=== PATIENT | male | born 1940 | race Caucasian/White ===

== ENCOUNTER 2020-03-26 13:28 | Outpatient (CLI) | payer MEDICARE, OTHER, SELFPAY ==
--- NOTE | 2020-04-10 13:52 | WPDHOLTEREM ---
Holter/Event Monitor Holter/Event Monitor Date of procedure: 03/26/20 Procedure Type: 30 day event monitor Indications: PAF Conclusion: 1. 13 days event monitor between 03/26/20-04/10/20. There are 11 available transmissions for analysis. 2. Underlying rhythm is sinus rhythm. HR range 50-120 bpm; average HR 58 bpm. 3. There are occasional premature supraventricular complexes with total burden of <1%. No supraventricular tachycardia. 4. There are intermittent premature ventricular complexes with total burden of 6%. No ventricular tachycardia. 5. No significant pauses greater than 2 seconds. 6. No symptoms available for correlation.
== END 2020-03-26 13:29 | disposition home or self-care (01) ==
LOC: CHSCARD 13:33
PROVIDERS: PCP Internal Medicine; Visit Provider Internal Medicine
DX: I48.91 Unspecified atrial fibrillation (principal)
CPT/HCPCS: 99199

== ENCOUNTER 2020-03-27 12:29 | Outpatient (CLI) | payer MEDICARE, OTHER, SELFPAY ==
--- NOTE | ~2020-03-27 | US_ITS ---
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 COMPARISON: None. FINDINGS: Right and left brachial artery pressures of 127 mm Hg and 123 mm Hg, respectively, are concordant (no rmal difference <= 30 mmHg). The right ankle-brachial index (KAYLENE) is 1.07 (normal >= 0.9-1.0). The right great toe-brachial index (TBI) is 1.05 (normal >= 0.65). Arterial Doppler waveforms are triphasic with brisk systolic upstroke s at both the right posterior tibial and dorsalis pedis arteries. The left KAYLENE is 1.13. The left TBI is 0.86. Arterial Doppler waveforms are triphasic with brisk systo lic upstrokes at both the left posterior tibial and dorsalis pedis arteries. IMPRESSION: 1. Normal study. No significant arterial occlusive disease with normal bilateral ABIs and TBI's. Reviewed, dictated and finalized at location A. IMPRESSION: 1. Normal study. No significant arterial occlusive disease with normal bilatera l ABIs and TBI's.
== END 2020-03-27 12:30 | disposition home or self-care (01) ==
LOC: CHSIMG 12:30
PROVIDERS: PCP Internal Medicine; Visit Provider Internal Medicine
DX: I73.9 Peripheral vascular disease, unspecified (principal)
CPT/HCPCS: 93922

== ENCOUNTER 2020-11-05 08:55 | Outpatient (CLI) | payer MEDICARE, OTHER, SELFPAY | END 2020-11-05 08:56 | disposition home or self-care (01) | LOC: CHSCARD 08:57 | PROVIDERS: PCP Internal Medicine; Visit Provider Internal Medicine | DX: J44.9 Chronic obstructive pulmonary disease, unspecified (principal) | CPT/HCPCS: 94060; 94726; 94729 ==

== ENCOUNTER 2020-11-20 13:14 | Outpatient (RCR) | payer MEDICARE, OTHER, SELFPAY ==
--- NOTE | 2020-11-06 09:39 | PTOPEVAL ---
Thank you for referring Dhiraj Jacobson to [facility].? The patient is scheduled to be seen for therapy? __2__x/week for 12 visits. Please review, sign, date and return this plan of care BHARAT. I agree with and certify that the following plan of care is medically necessary. Referring Physician Date Admitting Provider: Attending Provider: Paul Carpio MD Referring Provider: *PT Outpatient Evaluation Start: 11/06/20 08:52 Freq: Status: Active Protocol: Document 11/06/20 08:50 MELITON (Rec: 11/06/20 09:38 MELITON [id number]) Therapy Assessment Status Assessment Status Assessment Status Evaluation Evaluation Information Problem Diagnosis unstable gait Onset 10/29/20 Subjective Information Pt. reports that he had left Query Text:As Reported By Patient/ upper lobe of lung taken out Family in 2016. He underwent chemo and has not had any feeling in his feet since. He states that if he closes his eyes in the shower he will tend to fall backwards. He states that movement at night is difficult, especially if he does hold onto something. He denies any falls. He states that he still golfs, but feels unsteady. He does use a cane if he would go on a long walk . He reports that his goal is to improve his balance. 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[employer] Hand Dominance Right Activity of Daily Living Ability Independent Indoor/Home Mobility Independent Community Mobility Independent Stairs Ability Independent Functional Cognition (Planning, Shopping Independent , Taking Medications) Cooking Yes Cleaning Yes Laundry Yes Shopping Yes Driving Yes Pain Assessment Pain Scale Pain Scale Used Numeric (1 - 10) Self Report Pain Assessment Lower Back Reported Pain Level 0 Pain Description Aching Greatest Pain Intensity 8 Pain Aggravating Factors Exercise/Activity,Lifting Pain Score Pain Score 0: Self Report Interventions Used Interventions Used By Clinicians Activity or ADL's,Exercise Lower Extremity Muscle Strength Testing General Lower Extremity Strength Gross Lower E
== END 2020-12-17 08:41 | disposition home or self-care (01) ==
LOC: CHSPT 13:14
PROVIDERS: PCP Internal Medicine; Visit Provider Internal Medicine
DX: G62.9 Polyneuropathy, unspecified (principal); R26.81 Unsteadiness on feet
CPT/HCPCS: 97110; 97112; 97161; 97530

== ENCOUNTER 2021-01-08 09:30 | Outpatient (RCR) | payer MEDICARE, OTHER, SELFPAY | END 2021-01-08 10:46 | disposition home or self-care (01) | PROVIDERS: PCP Internal Medicine; Visit Provider Internal Medicine Cardiovascular Disease | DX: J44.9 Chronic obstructive pulmonary disease, unspecified (principal) | CPT/HCPCS: 97150; G0424 ==

== ENCOUNTER 2021-02-02 08:29 | Outpatient (CLI) | payer MEDICARE, SELFPAY ==
[2021-02-02 09:06] LABS: Hemoglobin A1C 6.2 % (<5.7)
[2021-02-02 09:35] LABS: Alanine Aminotransferase 44 U/L (16-63); Albumin Level 3.9 g/dL (3.4-5.0); Alkaline Phosphatase 103 U/L (46-116); Anion Gap 15 mmol/L (8-16); Aspartate Amino Transferase 30 U/L (15-37); Bilirubin,Total 1.4 mg/dL (0.00-1.00); Blood Urea Nitrogen 19 mg/dL (7-18); Calcium 9.5 mg/dL (8.5-10.1); Carbon Dioxide 21 mmol/L (21-32); Chloride 104 mmol/L (98-108); Cholesterol 179 mg/dL (0-200); Estimated Glomerular Filt Rate > 60; Glucose 140 mg/dL (70-99); HDL Direct 44 mg/dL (40-60); LDL Cholesterol Calculated 109 mg/dL (<130); Osmolality Calculated 294 mOsm/kg (285-295); Potassium 4.6 mmol/L (3.5-5.1); Sodium 140 mmol/L (136-145); Total Protein 7.1 g/dL (6.4-8.2); Triglycerides 128 mg/dL (0-150)
== END 2021-02-02 08:30 | disposition home or self-care (01) ==
LOC: CHSLAB 08:31
PROVIDERS: PCP Internal Medicine; Visit Provider Internal Medicine
DX: E78.2 Mixed hyperlipidemia (principal); I10 Essential (primary) hypertension; E11.65 Type 2 diabetes mellitus with hyperglycemia
CPT/HCPCS: 36415; 80053; 80061; 83036

== ENCOUNTER 2021-02-18 13:45 | Outpatient (CLI) | payer MEDICARE, OTHER, SELFPAY ==
--- NOTE | ~2021-02-18 | XR_ITS ---
XR hand LT min 3V DATE: 02/18/2021 14:20 INDICATION: Bilateral hand pain TECHNIQUE: 3 views COMPARISON: None FINDINGS: There is polyarticular osteoarthritis with severe joint space narrowing and spurring at the first carpometacarpal joint, narrowing at metacarpophalangeal and interphalangeal joints. No erosive change is evident. There is a bony density along the dorsal aspect of the wrist which may represent triquetrum fracture of uncertain age. There is no given history of recent trauma. No apparent recent fracture or dislocat ion, periosteal reaction or bone destruction is detected. IMPRESSION: Polyarticular osteoarthritis Possible triquetrum fracture of undetermined age Reviewed, dictated and finalized at location A.
--- NOTE | ~2021-02-18 | XR_ITS ---
XR hand RT min 3V DATE: 02/18/2021 14:20 INDICATION: Bilateral hand pain TECHNIQUE: AP, lateral, oblique views COMPARISON: None FINDINGS: There is chondrocalcinosis at the triangular cartilage and radiocarpal joint. There is prominent osteoarthritic change at the first carpometacarpal joint. There is mild osteoarthr itis at the first and second metacarpophalangeal joints. There is osteoarthritic change at multiple i nterphalangeal joints, joint space narrowing and spurring. No erosive change is evident. Small bony density at the dorsum of the proximal row carpal bones is noted, likely chronic. No recent fracture or dislocation, periosteal reaction or bone destruction. IMPRESSION: Chondrocalcinosis at the triangular cartilage and radiocarpal joint Polyarticular osteoarthritis Probable chronic small bony density at the dorsum of the wrist Reviewed, dictated and finalized at location A.
[2021-02-18 14:27] LABS: Basophils Absolute Auto 0.05 K/mm3 (0.00-0.10); Basophils Percent Auto 0.7 % (0.0-1.0); Eosinophils Absolute Auto 0.23 K/mm3 (0.02-0.50); Eosinophils Percent Auto 3.3 % (1.0-6.0); Hematocrit 44.1 % (37.0-46.0); Hemoglobin 14.5 g/dL (12.4-15.3); Immature Granulocyte Absolute 0.02 K/mm3 (0.00-0.00); Immature Granulocyte Percent A 0.3 % (0.0-0.0); Lymphocytes Absolute Auto 1.73 K/mm3 (1.10-4.50); Lymphocytes Percent Auto 25.2 % (18.0-42.0); Mean Corpuscular HGB Conc 32.9 g/dL (32.0-36.0); Mean Corpuscular Hemoglobin 31.7 pg (27.0-31.0); Mean Corpuscular Volume 96.3 fL (78.0-102.0); Monocytes Percent Auto 8.7 % (2.0-11.0); Neutrophils Absolute Auto 4.2 K/mm3 (1.7-7.2); Neutrophils Percent Auto 61.8 % (50.0-70.0); Platelet Count Result 154 K/mm3 (150-420); Red Blood Count 4.58 M/mm3 (4.70-6.10); Red Cell Distribution Width 12.9 % (11.6-14.4); White Blood Count 6.9 K/mm3 (4.8-10.8)
[2021-02-18 15:16] LABS: Rheumatoid Factor Screen Negative (Negative)
[2021-02-18 15:23] LABS: CRP < 0.5 mg/dL (0.0-0.9)
[2021-02-18 15:38] LABS: Erythrocyte Sedimentation Rate 9 mm/hr (0-20)
[2021-02-20 22:35] LABS: Anti Cyclic Citrullinated Pept <16 Units (<20)
[2021-02-24 10:35] LABS: Anti Nuclear Antibody Pattern Nuclear, Homogeneous; Anti Nuclear Antibody Titer 1:40
== END 2021-02-18 13:46 | disposition home or self-care (01) ==
LOC: CHSLAB 13:47
PROVIDERS: PCP Internal Medicine; Visit Provider Internal Medicine
DX: M79.642 Pain in left hand (principal); M79.641 Pain in right hand
CPT/HCPCS: 36415; 73130; 85025; 85652; 86038; 86039; 86140; 86200; 86430

== ENCOUNTER 2021-03-02 13:33 | Outpatient (RCR) | payer MEDICARE, OTHER, SELFPAY ==
--- NOTE | 2021-03-02 17:46 | OTOPEVAL ---
Thank you for referring Dhiraj Jacobson to [facility].? The patient is scheduled to be seen for therapy? ____x/week for ___ weeks. Please review, sign, date and return this plan of care BHARAT. I agree with and certify that the following plan of care is medically necessary. Referring Physician Date Admitting Provider: Attending Provider: Paul Carpio MD Referring Provider: *OT Outpatient Evaluation Start: 03/02/21 13:31 Freq: Status: Active Protocol: Document 03/02/21 13:31 [facility] [place] (Rec: 03/02/21 14:28 [facility] [place] [id number] Therapy Assessment Status Assessment Status Assessment Status Evaluation Outpatient Past Medical History Cardiovascular History Hx Hypertension Yes Respiratory History Hx Chronic Obstructive Pulmonary Disease Yes (COPD) Endocrine History Hx Diabetes Yes Evaluation Information Problem Diagnosis bilateral hand pain Onset 12/29/20 Subjective Information Patient reports that both of Query Text:As Reported By Patient/ his hands have been painful, Family specifically the L middle finger and the R thumb. Patient had X-rays which indicated arthritis. Patient started taking celebrex about 8 days ago and reports that it is helping. He does mention a history of trigger finger for the L middle finger but now has difficulty extending it. Patient reports that these issues have started approximately 8 weeks ago. Patient reports that he has been soaking his hands in warm water and rubbing them to help with pain. He notes difficulty opening water bottles, jars, containers, etc . Patient states that he has to use some pliers because he has lost his strength. Patient reports that he had carpal tunnel release surgery approximately 2 years ago. Quick DASH: 22.7% Diagnostic Tests X-Rays For This Problem Yes Prior Level of Function Activity Level (Last 3 Months) Occupation retired Hand Dominance Right Activity of Daily Living Ability Independent Indoor/Home Mobili
--- NOTE | 2021-03-03 11:43 | OTOPEVAL ---
Thank you for referring Dhiraj Jacobson to [facility].? The patient is scheduled to be seen for therapy? ____x/week for ___ weeks. Please review, sign, date and return this plan of care BHARAT. I agree with and certify that the following plan of care is medically necessary. Referring Physician Date Admitting Provider: Attending Provider: Palu Carpio MD Referring Provider: *OT Outpatient Evaluation Start: 03/02/21 13:31 Freq: Status: Active Protocol: Document 03/02/21 13:31 [facility] [place]Rec: 03/02/21 14:28 [facility] [place] [id number] Therapy Assessment Status Assessment Status Assessment Status Evaluation Outpatient Past Medical History Cardiovascular History Hx Hypertension Yes Respiratory History Hx Chronic Obstructive Pulmonary Disease Yes (COPD) Endocrine History Hx Diabetes Yes Evaluation Information Problem Diagnosis bilateral hand pain Onset 12/29/20 Subjective Information Patient reports that both of Query Text:As Reported By Patient/ his hands have been painful, Family specifically the L middle finger and the R thumb. Patient had X-rays which indicated arthritis. Patient started taking celebrex about 8 days ago and reports that it is helping. He does mention a history of trigger finger for the L middle finger but now has difficulty extending it. Patient reports that these issues have started approximately 8 weeks ago. Patient reports that he has been soaking his hands in warm water and rubbing them to help with pain. He notes difficulty opening water bottles, jars, containers, etc . Patient states that he has to use some pliers because he has lost his strength. Patient reports that he had carpal tunnel release surgery approximately 2 years ago. Quick DASH: 22.7% Diagnostic Tests X-Rays For This Problem Yes Prior Level of Function Activity Level (Last 3 Months) Occupation retired Hand Dominance Right Activity of Daily Living Ability Independent Indoor/Home Mobili
--- NOTE | 2021-04-03 14:04 | OTOPEVAL ---
Thank you for referring Dhiraj Jacobson to [facility].? The patient is scheduled to be seen for therapy? ____x/week for ___ weeks. Please review, sign, date and return this plan of care BHARAT. I agree with and certify that the following plan of care is medically necessary. Referring Physician Date Admitting Provider: Attending Provider: Paul Carpio MD Referring Provider: *OT Outpatient Evaluation Start: 03/02/21 13:31 Freq: Status: Active Protocol: Document 04/03/21 13:15 [facility] [place]Rec: 04/03/21 14:04 [facility] [place] [id number] Therapy Assessment Status Assessment Status Assessment Status Discharge Outpatient Past Medical History Cardiovascular History Hx Hypertension Yes Respiratory History Hx Chronic Obstructive Pulmonary Disease Yes (COPD) Endocrine History Hx Diabetes Yes Evaluation Information Problem Subjective Information Patient reports that both of Query Text:As Reported By Patient/ hands have been feeling really Family good. Patient has no concerns. Pain Assessment Timing of Pain Assessment Timing of Pain Assessment Re-assessment Self Report Self Report Pain Level 0 Pain Score Pain Score 0: Self Report Upper Extremity Range of Motion Finger Range of Motion Left Middle Finger PIP Joint Extension - 0 Active Hand Bench Scientist/Pinch Strength Assessment Hand Right Bench Scientist Strength (lbs) 65 Left Bench Scientist Strength (lbs) 49 General Exercise General Exercises Side Bilateral Exercise Description PROM for wrist flexion and Query Text:Record Sets, Reps, wrist extension with elbow Resistance, and Position extended holding ~30 seconds x 2 reps each blue digi-flex resisting bilateral, 20 reps x 2 sets green clothespin resisting L lateral pinch, 20 reps x 2 sets each 5# resisting B wrist flexion and wrist extension, supination/pronation, 20 reps x 1 set each [ End ] Manual Therapy Manual Therapy Side Bilateral Treatment Comments PROM for L middle finger Query Text:Include Technique and extension and MCP/PIP/DIP Result of Technique flexion x 5 min, STM to palm of hand and middle finger PROM for R thumb radial/palmar abduction, STM/ISTM to R
== END 2021-04-03 15:13 | disposition home or self-care (01) ==
LOC: CHSOT 13:33
PROVIDERS: PCP Internal Medicine; Visit Provider Internal Medicine
DX: M79.642 Pain in left hand (principal); M79.641 Pain in right hand
CPT/HCPCS: 97035; 97110; 97140; 97165

== ENCOUNTER 2021-06-18 07:03 | Outpatient (CLI) | payer MEDICARE, SELFPAY ==
[2021-06-18 07:19] LABS: Add Urine Microscopic? NO; Appearance Urine Clear (Clear); Bilirubin Urine Negative (Negative); Blood Urine Negative (Negative); Color Urine Light Yellow (Yellow); Glucose Urine UA Negative (Negative); Ketones Urine Negative (Negative); Leukocyte Esterase Ur Negative LEU/UL (Negative); Nitrate Urine Negative (Negative); Protein Urine Negative (Negative); Urobilinogen Urine 0.2 mg/dL (0.2-1.0)
[2021-06-18 07:20] LABS: Basophils Absolute Auto 0.03 K/mm3 (0.00-0.10); Basophils Percent Auto 0.5 % (0.0-1.0); Eosinophils Absolute Auto 0.22 K/mm3 (0.02-0.50); Eosinophils Percent Auto 3.4 % (1.0-6.0); Hemoglobin 15.3 g/dL (12.4-15.3); Immature Granulocyte Absolute 0.02 K/mm3 (0.00-0.00); Immature Granulocyte Percent A 0.3 % (0.0-0.0); Immature Platelet Fraction Pct 5.6 % (1.0-7.0); Lymphocytes Absolute Auto 1.62 K/mm3 (1.10-4.50); Lymphocytes Percent Auto 25.1 % (18.0-42.0); Mean Corpuscular Hemoglobin 32.8 pg (27.0-31.0); Mean Corpuscular Volume 96.6 fL (78.0-102.0); Mean Platelet Volume 11.3 fl (8.7-11.0); Monocytes Absolute Auto 0.59 K/mm3 (0.10-0.90); Monocytes Percent Auto 9.1 % (2.0-11.0); Neutrophils Percent Auto 61.6 % (50.0-70.0); Platelet Count Result 140 K/mm3 (150-420); Red Blood Count 4.66 M/mm3 (4.70-6.10); Red Cell Distribution Width 12.8 % (11.6-14.4); White Blood Count 6.5 K/mm3 (4.8-10.8)
[2021-06-18 07:29] LABS: Creatinine Urine 118.77 mg/dL (40-278); MALB Creatinine Ratio 10.9 mg/g (0-30); Microalbumin Urine Random < 13.0 mg/L
[2021-06-18 07:30] LABS: Hemoglobin A1C 6.9 % (<5.7)
[2021-06-18 08:48] LABS: Alanine Aminotransferase 63 U/L (16-63); Albumin Level 3.8 g/dL (3.4-5.0); Alkaline Phosphatase 132 U/L (46-116); Anion Gap 11 mmol/L (8-16); Aspartate Amino Transferase 48 U/L (15-37); Bilirubin,Total 0.8 mg/dL (0.00-1.00); Blood Urea Nitrogen 15 mg/dL (7-18); Calcium 9.1 mg/dL (8.5-10.1); Carbon Dioxide 26 mmol/L (21-32); Chloride 103 mmol/L (98-108); Cholesterol 212 mg/dL (0-200); Creatine Kinase 131 U/L (39-308); Estimated Glomerular Filt Rate > 60; Glucose 201 mg/dL (70-99); HDL Direct 39 mg/dL (40-60); LDL Cholesterol Calculated 124 mg/dL (<130); Osmolality Calculated 296 mOsm/kg (285-295); Potassium 4.5 mmol/L (3.5-5.1); Sodium 140 mmol/L (136-145); Total Protein 7.2 g/dL (6.4-8.2); Triglycerides 246 mg/dL (0-150); Uric Acid 5.7 mg/dL (3.5-7.2); Vitamin B12 465 pg/mL (193-986)
== END 2021-06-18 07:04 | disposition home or self-care (01) ==
LOC: CHSLAB 07:05
PROVIDERS: PCP Internal Medicine; Visit Provider Internal Medicine
DX: E11.9 Type 2 diabetes mellitus without complications (principal); I10 Essential (primary) hypertension; N39.0 Urinary tract infection, site not specified; E78.5 Hyperlipidemia, unspecified; E53.8 Deficiency of other specified B group vitamins; E79.0 Hyperuricemia without signs of inflammatory arthritis and tophaceous disease
CPT/HCPCS: 36415; 80053; 80061; 81003; 82043; 82550; 82607; 83036; 84550; 85025; 85055

== ENCOUNTER 2021-10-26 14:30 | Outpatient (CLI) | payer MEDICARE, OTHER, SELFPAY ==
--- NOTE | ~2021-10-26 | XR_ITS ---
r EXAM: XR lumbar spine 2-3V HISTORY: Low back pain for two years no know injury COMPARISON: 10/13/2018. FINDINGS: 5 nonrib-bearing lumbar-type vertebral bodies. Cholecystectomy clips. Visualized pedicles are intact. 2.6 cm anterolisthesis of L5 on S1 with severe disc space narrowing, unchanged. Minimal a nterolisthesis of L4 on L5, stable. Stable mild superior endplate deformity of L1. Stable multilevel facet arthropathy. Bilateral L5-S1 pars defects. Fusiform abdominal aortic aneurysm measuring at leas t 4.6 cm in greatest AP dimension, although incompletely visualized. IMPRESSION: Abdominal aortic aneurysm measuring at least 4.6 cm, recommend abdominal aortic ultrasound for furthe r characterization and subsequent follow-up. No acute fracture or traumatic malalignment in lumbar sp ine. Chronic/degenerative changes described above. Reviewed, dictated and finalized at location K. IMPRESSION: Abdominal aortic aneurysm measuring at least 4.6 cm, recommend abdominal aortic ultrasound for further characterization and subsequent follow-up. No acute fra cture or traumatic malalignment in lumbar spine. Chronic/degenerative changes d escribed above.
== END 2021-10-26 14:31 | disposition home or self-care (01) ==
LOC: CHSIMG 14:32
PROVIDERS: PCP Internal Medicine; Visit Provider Internal Medicine
DX: M54.50 Low back pain, unspecified (principal); M43.10 Spondylolisthesis, site unspecified
CPT/HCPCS: 72100

== ENCOUNTER 2021-11-02 08:31 | Outpatient (CLI) | payer MEDICARE, OTHER, SELFPAY ==
--- NOTE | ~2021-11-02 | US_ITS ---
EXAMINATION: US aorta DATE: 11/02/2021 08:50 INDICATION: Abdominal aortic aneurysm. TECHNIQUE: Grayscale, color Doppler, and pulsed Doppler images of the aorta and common iliac arteries were obtained. COMPARISON: None. FINDINGS: The aorta demonstrates a 3.7 cm fusiform infrarenal aneurysm.. The right common iliac artery measures 1.7 cm. The left common iliac artery measures 1.7 cm. IMPRESSION: 1. 3.7 cm fusiform infrarenal aortic aneurysm. Reviewed, dictated and finalized at location A.
== END 2021-11-02 08:32 | disposition home or self-care (01) ==
LOC: CHSIMG 08:33
PROVIDERS: PCP Internal Medicine; Visit Provider Internal Medicine
DX: I71.4 Abdominal aortic aneurysm, without rupture (principal)
CPT/HCPCS: 76775

== ENCOUNTER 2021-11-07 08:22 | Outpatient (CLI) | payer MEDICARE, OTHER, SELFPAY ==
--- NOTE | ~2021-11-07 | MR_ITS ---
EXAMINATION: MR lumbar spine wo con DATE: 11/07/2021 09:09 INDICATION: Low back pain. TECHNIQUE: Magnetic resonance imaging (MRI) of the lumbar spine was performed without intravenous con trast. Sequences included sagittal T2-weighted FSE, sagittal T2-weighted FS FSE, sagittal T1-weighted FSE, and axial T2-weighted FSE. COMPARISON: Lumbar spine radiographs 10/26/2021 FINDINGS: There are chronic bilateral L5 pars defects. There is 18 mm anterolisthesis of L5 on S1. Th ere is severely decreased disc height at L5-S1 with interbody fusion. Epidural lipomatosis is noted. There is ligamentum flavum hypertrophy at L2-L3, L3-L4, and L4-L5. The distal spinal cord signal inte nsity is normal. The conus medullaris is at T12-L1. There is a 3.7 cm fusiform infrarenal aortic aneu rysm. The following disc levels are specifically discussed: L1-L2: The disc does not extend beyond the endplate margin. There is moderate bilateral facet joint o steoarthritis. There is no neural foraminal stenosis. There is no central canal stenosis. L2-L3: The disc is bulging and has an annular fissure. There is severe bilateral facet joint osteoart hritis. There is moderate bilateral neural foraminal stenosis. There is mild central canal stenosis. L3-L4: The disc is bulging and has an annular fissure. There is severe bilateral facet joint osteoart hritis. There is moderate bilateral neural foraminal stenosis. There is moderate central canal stenos is. L4-L5: The disc is bulging and has an annular fissure. There is severe bilateral facet joint osteoart hritis. There is moderate right and mild left neural foraminal stenosis. There is mild central canal stenosis. L5-S1: There is severe bilateral facet joint osteoarthritis. There is moderate bilateral neural lyndsey inal stenosis. There is mild central canal stenosis. IMPRESSION: 1. Moderate lumbar spondylosis. 2. Chronic bilateral L5 pars defects with grade 3 anterolisthesis of L5 on S1 and interbody fusion at L5-S1. 3. 3.7 cm fusiform infrarenal aortic aneurysm. Reviewed, dictated and finalized at location B. IMPRESSION: 1. Moderate lumbar spondylosis. 2. Chronic bilateral L5 pars defects with grade 3 anterolisthesis of L5 on S1 a nd interbody fusion at L5-S1. 3. 3.7 cm fusiform infrarenal aortic aneurysm.
== END 2021-11-07 08:23 | disposition home or self-care (01) ==
LOC: CHSIMG 08:24
PROVIDERS: PCP Internal Medicine; Visit Provider Internal Medicine
DX: M54.50 Low back pain, unspecified (principal); I71.4 Abdominal aortic aneurysm, without rupture
CPT/HCPCS: 72148

== ENCOUNTER 2021-12-09 13:41 | Outpatient (CLI) | payer MEDICARE, OTHER, SELFPAY ==
--- NOTE | ~2021-12-09 | XR_ITS ---
EXAMINATION: XR chest 2V DATE: 12/09/2021 14:13 INDICATION: Chronic cough TECHNIQUE: frontal and lateral views of the chest were obtained. COMPARISON: Chest radiograph dated 04/10/2019 FINDINGS: Emphysema with architectural distortion and regions of increased lucency in both lungs. Increased ret icular opacities throughout the right lung and in the left upper and lower lung zones. There is also a focal peripheral consolidation at the left apex. No pleural effusion or pneumothorax. Heart size is normal. Enlargement of the central pulmonary arteries consistent with pulmonary arterial hypertensio n. Increased prominence of the aortic knob suggesting aneurysmal dilation of the aortic arch. Mild th oracic kyphosis with mild anterior wedging of a couple mid thoracic vertebral bodies. Moderate spondy losis. IMPRESSION: 1. Somewhat heterogeneous scattered bilateral increased reticular pattern in both lungs which could r epresent mild pulmonary edema or pneumonia superimposed over emphysema. 2. More dense peripheral consolidation at the left apex which could represent pleural parenchymal sca rring, pneumonia or less likely malignancy. Recommend chest CT for further evaluation. 3. 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 This could also be further evaluated at the same time with CT . 4. Enlargement of the central pulmonary arteries consistent with pulmonary arterial hypertension. Reviewed, dictated and finalized at location B. IMPRESSION: 1. Somewhat heterogeneous scattered bilateral increased reticular pattern in sung th lungs which could represent mild pulmonary edema or pneumonia superimposed o yamini emphysema. 2. More dense peripheral consolidation at the left apex which could represent p leural parenchymal scarring, pneumonia or less likely malignancy. Recommend karla st CT for further evaluation. 3. 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 This could also be further evaluated at the same time with CT . 4. Enlargement of the central pulmonary arteries consistent with pulmonary darrell rial hypertension.
--- NOTE | ~2021-12-09 | CT_ITS ---
EXAMINATION: CT sinus wo con DATE: 12/09/2021 14:13 INDICATION: Sinusitis. Cough. Frontal pressure. TECHNIQUE: Computed tomography (CT) of the paranasal sinuses was performed without intravenous contra st. The dose-length product was 263.70 mGy-cm. Automated exposure control and iterative reconstructio n technique were employed. COMPARISON: CT dated 04/10/2019 FINDINGS: There is mucosal thickening of the maxillary and ethmoid sinuses. No significant nasal sept al deviation. Right ostiomeatal unit is occluded by soft tissue. Mastoids are pneumatized. IMPRESSION: 1. Mild sinus disease. Reviewed, dictated and finalized at location A. IMPRESSION: 1. Mild sinus disease.
== END 2021-12-09 13:42 | disposition home or self-care (01) ==
LOC: CHSIMG 13:45
PROVIDERS: PCP Internal Medicine; Visit Provider Internal Medicine
DX: J32.9 Chronic sinusitis, unspecified (principal); R05.3 Chronic cough; J44.9 Chronic obstructive pulmonary disease, unspecified
CPT/HCPCS: 70486; 71046

== ENCOUNTER 2022-03-10 15:02 | Outpatient (CLI) | payer MEDICARE, SELFPAY ==
[2022-03-10 15:40] LABS: Alanine Aminotransferase 51 U/L (16-63); Albumin Level 3.4 g/dL (3.4-5.0); Alkaline Phosphatase 104 U/L (46-116); Amylase 50 U/L (25-115); Anion Gap 10 mmol/L (8-16); Aspartate Amino Transferase 58 U/L (15-37); Blood Urea Nitrogen 16 mg/dL (7-18); Calcium 8.8 mg/dL (8.5-10.1); Carbon Dioxide 18 mmol/L (21-32); Chloride 104 mmol/L (98-108); Estimated Glomerular Filt Rate > 60; Glucose 164 mg/dL (70-99); Lipase 184 U/L (73-393); Osmolality Calculated 279 mOsm/kg (285-295); Sodium 132 mmol/L (136-145); Total Protein 7.4 g/dL (6.4-8.2)
== END 2022-03-10 15:03 | disposition home or self-care (01) ==
LOC: CHSLAB 15:07
PROVIDERS: PCP Internal Medicine; Visit Provider Internal Medicine
DX: R11.0 Nausea (principal)
CPT/HCPCS: 36415; 80053; 82150; 83690

== ENCOUNTER 2022-03-25 08:17 | Outpatient (CLI) | payer MEDICARE, SELFPAY ==
[2022-03-25 09:01] LABS: Alanine Aminotransferase 52 U/L (16-63); Albumin Level 3.9 g/dL (3.4-5.0); Alkaline Phosphatase 112 U/L (46-116); Anion Gap 11 mmol/L (8-16); Aspartate Amino Transferase 41 U/L (15-37); Bilirubin,Total 0.6 mg/dL (0.00-1.00); Blood Urea Nitrogen 14 mg/dL (7-18); Carbon Dioxide 24 mmol/L (21-32); Chloride 103 mmol/L (98-108); Estimated Glomerular Filt Rate > 60; Glucose 171 mg/dL (70-99); Osmolality Calculated 290 mOsm/kg (285-295); Potassium 4.1 mmol/L (3.5-5.1); Sodium 138 mmol/L (136-145); Total Protein 6.8 g/dL (6.4-8.2)
== END 2022-03-25 08:18 | disposition home or self-care (01) ==
LOC: CHSLAB 08:19
PROVIDERS: PCP Internal Medicine; Visit Provider Internal Medicine
DX: R94.5 Abnormal results of liver function studies (principal)
CPT/HCPCS: 36415; 80053

== ENCOUNTER 2022-04-26 08:45 | Outpatient (CLI) | payer MEDICARE, OTHER, SELFPAY ==
[2022-04-26 09:05] LABS: Appearance Urine Clear (Clear); Bilirubin Urine Negative (Negative); Blood Urine 1+ (Negative); Glucose Urine UA Negative (Negative); Ketones Urine Negative (Negative); Leukocyte Esterase Ur Negative (Negative); Nitrate Urine Negative (Negative); Protein Urine Negative (Negative); Specific Grav Ur 1.015 (1.010-1.020); Urobilinogen Urine 0.2 mg/dL (0.2-1.0)
[2022-04-26 09:14] LABS: Add Urine Microscopic? YES; Color Urine Light Yellow (Yellow); WBC Urine None seen /hpf (0-3)
[2022-04-26 09:15] LABS: Bacteria Urine None seen /hpf
[2022-04-26 09:22] LABS: Hemoglobin A1C 6.4 % (<5.7)
[2022-04-26 09:51] LABS: Alanine Aminotransferase 62 U/L (16-63); Albumin Level 3.9 g/dL (3.4-5.0); Alkaline Phosphatase 134 U/L (46-116); Anion Gap 10 mmol/L (8-16); Aspartate Amino Transferase 58 U/L (15-37); Bilirubin,Total 0.9 mg/dL (0.00-1.00); Blood Urea Nitrogen 16 mg/dL (7-18); Calcium 9.2 mg/dL (8.5-10.1); Carbon Dioxide 26 mmol/L (21-32); Chloride 105 mmol/L (98-108); Estimated Glomerular Filt Rate > 60; Glucose 141 mg/dL (70-99); Osmolality Calculated 295 mOsm/kg (285-295); Potassium 4.3 mmol/L (3.5-5.1); Sodium 141 mmol/L (136-145)
== END 2022-04-26 08:46 | disposition home or self-care (01) ==
LOC: CHSLAB 08:49
PROVIDERS: PCP Internal Medicine; Visit Provider Internal Medicine
DX: R94.5 Abnormal results of liver function studies (principal); E11.9 Type 2 diabetes mellitus without complications
CPT/HCPCS: 36415; 80053; 81001; 83036

== ENCOUNTER 2022-04-28 16:09 | Outpatient (CLI) | payer MEDICARE, OTHER, SELFPAY ==
--- NOTE | ~2022-04-28 | CT_ITS ---
EXAMINATION: CT abdomen pelvis wo con DATE: 04/28/2022 16:27 INDICATION: Hematuria TECHNIQUE: Computed tomography (CT) of the abdomen and pelvis was performed without intravenous contr ast. The dose-length product (DLP) was 1169.40 mGy-cm. Automated exposure control and iterative recon struction technique were employed. COMPARISON: 07/07/2016 FINDINGS: There is a stable 4 mm nodule of the right lower lobe. There is nodularity of the liver edgardo face. The heart size is normal. The gallbladder is surgically absent. The spleen, pancreas, and adren al glands are normal. There is a 2 mm nonobstructing stone of the right kidney. The left kidney is un remarkable. There is a 2.3 x 2.0 cm soft tissue density mass in the right posterolateral aspect of th e urinary bladder. There is a 3.7 cm fusiform aneurysm of the infrarenal abdominal aorta. Bilateral i nguinal lymph nodes are enlarged in short axis but did not appear to demonstrate irregular cortical t hickening. There is no free intraperitoneal gas or evidence of bowel obstruction. There is grade 1 an terolisthesis of L5 on S1 with bilateral L5 pars defects. IMPRESSION: 1. 2.3 cm soft tissue density mass of the right posterolateral bladder wall concerning for urothelial carcinoma. Urologic evaluation is recommended. 2. Nonobstructing right nephrolithiasis. 3. 3.7 cm fusiform infrarenal abdominal aortic aneurysm. Reviewed, dictated and finalized at location A. IMPRESSION: 1. 2.3 cm soft tissue density mass of the right posterolateral bladder wall con cerning for urothelial carcinoma. Urologic evaluation is recommended. 2. Nonobstructing right nephrolithiasis. 3. 3.7 cm fusiform infrarenal abdominal aortic aneurysm.
== END 2022-04-28 16:10 | disposition home or self-care (01) ==
LOC: CHSIMG 16:12
PROVIDERS: PCP Internal Medicine; Visit Provider Internal Medicine
DX: R31.9 Hematuria, unspecified (principal); N20.0 Calculus of kidney
CPT/HCPCS: 74176

== ENCOUNTER 2022-05-13 20:10 | Emergency (ER) | payer MEDICARE, OTHER, SELFPAY ==
[2022-05-13 20:10] VITALS: BP 140/90; PULSE 88; RESP 20; TEMP 37; O2SAT 99
--- NOTE | 2022-05-13 20:19 | ED.MALEGU ---
HPI - Male Genitourinary General Chief complaint: Urogenital-Male Stated complaint: catheter issues Source: patient Mode of arrival: ambulatory Limitations: no limitations History of Present Illness HPI Narrative: Patient here today for Watkins replacement, the patient was seen by Urology at [facility] this morning and had a resection of a bladder tumor and Watkins catheter was placed. Patient inadvertently pulled out his Watkins and presents today to the emergency department to have the Watkins replaced is minimal mi of blood no bladder pain or tenderness no flank pain no fever chills. Related Data Allergies Allergy/AdvReac Type Severity Reaction Status Date / Time No Known Allergies Allergy Unknown Verified 04/25/07 21:13 Review of Systems Review of Systems: All systems reviewed & are unremarkable except as noted in HPI and below PMFSH Past Medical History Medical History Bladder tumor Exam Const: General: healthy appearing Nutritional Appearance: well nourished Limitations: no limitations HENMT: Head: normal to inspection Eyes: Conjunctivae: conjunctivae normal Pupils: Equal, round and reactive pupils present Direct Ophthalmoscopy: no photophobia Neck: Neck: normal visual inspection Chest: Chest palpation & inspection: normal inspection of the chest Resp: Effort & Inspection: normal respiratory effort Cardio: Rate: regular rate Rhythm: regular rhythm GI: GI Palp: Yes Soft to palpation Auscultation: normal bowel sounds : General: Yes bladder normal to palpation Other: Watkins dislodged and Watkins was replaced here in our emergency department. Urinary Catheter: Urinary Catheter: patent and draining Skin: General skin exam: normal color Rashes: no rashes Wounds: no wounds Neuro: General: patient oriented x3, moves all extremities and no meningeal signs Extrem: General: normal to inspection Psych: Mental Status: mental status grossly normal Affect: normal affect Course Course Emergency Course: Watkins replaced patient tolerated procedure well minimal blood loss. Critical Care Time Critical Care Time Critical Care Time: No Discharge Plan Discharge Clinical Impression: Bladder tumor Displacement of Watkins catheter Qualifiers: Encounter type: initial encounter Qualified Code(s): T83.021A - Displacement of indwelling urethral catheter, initial encounter Patient Disposition: Home, Self-Care Condition: Stable Instructions: Antibiotic Form, Watkins Catheter Placement and Care (ED) Additional Instructions: keep follow-up appointment with urologist. Follow-up/Referrals: Paul Carpio MD [Primary Care Provider] - Time of Disposition: 20:24
[2022-05-13 20:29] VITALS: BP 140/90; PULSE 88; RESP 20; TEMP 37; O2SAT 99
[2022-05-13 20:33] VITALS: BP 140/90; PULSE 70; RESP 20; TEMP 37; O2SAT 98
== END 2022-05-13 20:34 | disposition home or self-care (01) ==
PROVIDERS: Emergency Provider Emergency Medicine; PCP Internal Medicine
DX: T83.021A Displacement of indwelling urethral catheter, initial encounter (principal)
CPT/HCPCS: 99282

== ENCOUNTER 2022-06-14 13:44 | Outpatient (CLI) | payer MEDICARE, SELFPAY ==
[2022-06-14 13:57] LABS: Basophils Absolute Auto 0.06 K/mm3 (0.00-0.10); Basophils Percent Auto 0.6 % (0.0-1.0); Eosinophils Absolute Auto 0.15 K/mm3 (0.02-0.50); Eosinophils Percent Auto 1.4 % (1.0-6.0); Hemoglobin 13.7 g/dL (12.4-15.3); Immature Granulocyte Absolute 0.04 K/mm3 (0.00-0.00); Immature Granulocyte Percent A 0.4 % (0.0-0.0); Lymphocytes Absolute Auto 1.31 K/mm3 (1.10-4.50); Lymphocytes Percent Auto 12.6 % (18.0-42.0); Mean Corpuscular HGB Conc 33.4 g/dL (32.0-36.0); Mean Corpuscular Hemoglobin 31.4 pg (27.0-31.0); Mean Corpuscular Volume 93.8 fL (78.0-102.0); Mean Platelet Volume 10.7 fl (8.7-11.0); Monocytes Percent Auto 6.7 % (2.0-11.0); Neutrophils Absolute Auto 8.2 K/mm3 (1.7-7.2); Neutrophils Percent Auto 78.3 % (50.0-70.0); Platelet Count Result 164 K/mm3 (150-420); Red Blood Count 4.37 M/mm3 (4.70-6.10); Red Cell Distribution Width 12.5 % (11.6-14.4); White Blood Count 10.4 K/mm3 (4.8-10.8)
[2022-06-14 14:13] LABS: Add Urine Microscopic? YES; Alanine Aminotransferase 34 U/L (16-63); Albumin Level 3.4 g/dL (3.4-5.0); Alkaline Phosphatase 143 U/L (46-116); Amylase 55 U/L (25-115); Anion Gap 14 mmol/L (8-16); Appearance Urine Clear (Clear); Aspartate Amino Transferase 30 U/L (15-37); Bilirubin Urine Negative (Negative); Bilirubin,Total 0.8 mg/dL (0.00-1.00); Blood Urea Nitrogen 25 mg/dL (7-18); Blood Urine 2+ (Negative); Calcium 9.2 mg/dL (8.5-10.1); Carbon Dioxide 21 mmol/L (21-32); Chloride 97 mmol/L (98-108); Color Urine Yellow (Yellow); Estimated Glomerular Filt Rate 37; Glucose 235 mg/dL (70-99); Glucose Urine UA Negative (Negative); Ketones Urine Negative (Negative); Leukocyte Esterase Ur 3+ LEU/UL (Negative); Lipase 247 U/L (73-393); Nitrate Urine Negative (Negative); Osmolality Calculated 286 mOsm/kg (285-295); Potassium 4.1 mmol/L (3.5-5.1); Protein Urine 1+ (Negative); Sodium 132 mmol/L (136-145); Total Protein 7.4 g/dL (6.4-8.2); Urobilinogen Urine 0.2 mg/dL (0.2-1.0)
[2022-06-14 14:18] LABS: Bacteria Urine 2+ /hpf; WBC Urine 51-75 /hpf (0-3)
== END 2022-06-14 13:45 | disposition home or self-care (01) ==
LOC: CHSLAB 13:46
PROVIDERS: PCP Internal Medicine; Visit Provider Internal Medicine
DX: R11.0 Nausea (principal); I95.9 Hypotension, unspecified; R82.90 Unspecified abnormal findings in urine
CPT/HCPCS: 36415; 80053; 81001; 82150; 83690; 85025; 87077; 87086; 87088; 87186

== ENCOUNTER 2022-06-15 10:54 | Outpatient (CLI) | payer MEDICARE, SELFPAY ==
[2022-06-15 11:10] LABS: Basophils Absolute Auto 0.03 K/mm3 (0.00-0.10); Basophils Percent Auto 0.3 % (0.0-1.0); Eosinophils Absolute Auto 0.17 K/mm3 (0.02-0.50); Eosinophils Percent Auto 1.9 % (1.0-6.0); Hemoglobin 13.4 g/dL (12.4-15.3); Immature Granulocyte Absolute 0.03 K/mm3 (0.00-0.00); Immature Granulocyte Percent A 0.3 % (0.0-0.0); Lymphocytes Absolute Auto 1.08 K/mm3 (1.10-4.50); Lymphocytes Percent Auto 12.3 % (18.0-42.0); Mean Corpuscular HGB Conc 33.5 g/dL (32.0-36.0); Mean Corpuscular Volume 92.6 fL (78.0-102.0); Mean Platelet Volume 10.2 fl (8.7-11.0); Monocytes Absolute Auto 0.88 K/mm3 (0.10-0.90); Monocytes Percent Auto 10.1 % (2.0-11.0); Neutrophils Absolute Auto 6.6 K/mm3 (1.7-7.2); Neutrophils Percent Auto 75.1 % (50.0-70.0); Platelet Count Result 168 K/mm3 (150-420); Red Blood Count 4.32 M/mm3 (4.70-6.10); Red Cell Distribution Width 12.5 % (11.6-14.4); White Blood Count 8.8 K/mm3 (4.8-10.8)
[2022-06-15 11:50] LABS: Alanine Aminotransferase 39 U/L (16-63); Albumin Level 3.4 g/dL (3.4-5.0); Alkaline Phosphatase 136 U/L (46-116); Anion Gap 11 mmol/L (8-16); Aspartate Amino Transferase 36 U/L (15-37); Bilirubin,Total 0.7 mg/dL (0.00-1.00); Blood Urea Nitrogen 19 mg/dL (7-18); Calcium 8.9 mg/dL (8.5-10.1); Carbon Dioxide 24 mmol/L (21-32); Chloride 99 mmol/L (98-108); Estimated Glomerular Filt Rate 53; Glucose 202 mg/dL (70-99); Osmolality Calculated 286 mOsm/kg (285-295); Potassium 4.7 mmol/L (3.5-5.1); Sodium 134 mmol/L (136-145); Total Protein 6.7 g/dL (6.4-8.2)
== END 2022-06-15 10:55 | disposition home or self-care (01) ==
LOC: CHSLAB 10:56
PROVIDERS: PCP Internal Medicine; Visit Provider Internal Medicine
DX: N39.0 Urinary tract infection, site not specified (principal); E86.0 Dehydration
CPT/HCPCS: 36415; 80053; 85025

== ENCOUNTER 2022-06-16 14:09 | Inpatient (IN) | payer MEDICARE, OTHER, SELFPAY ==
--- NOTE | ~2022-06-16 | MR_ITS ---
EXAMINATION: MR pelvis wo con DATE: 06/26/2022 11:52 INDICATION: Bladder cancer. Bacteremia. TECHNIQUE: Magnetic resonance imaging (MRI) of the pelvis was performed without intravenous contrast. Sequences included axial T1-weighted FSE, axial T2-weighted FS FSE, coronal T1-weighted FSE, coronal fluid sensitive FSE STIR, sagittal T1-weighted FSE and sagittal T2-weighted FS FSE. COMPARISON: CT dated 04/28/2022 FINDINGS: Subtle trabeculated mucosal surface to the bladder. Interval resolution of the prior nodular soft tis rosalinda density at the right trigonal region of the bladder with mild prostatomegaly measuring 3.9 x 3.2 x 3.2 cm. Visualized portions of the bowels are unremarkable. No pathologically enlarged pelvic or in guinal lymphadenopathy. Small bilateral hydroceles. Chronic bilateral L5 pars interarticularis defect s. L5 is fused to S1 with 1.6 cm anterolisthesis. There is associated moderate to severe bilateral ne ural foraminal stenosis at L5-S1. IMPRESSION: 1. A prior mass at the right trigonal region of the bladder (reportedly bladder cancer) is no longer visualized suggesting interval resection. Correlate with urologic history. Residual more diffuse mild mucosal trabeculation of the bladder likely related to chronic outlet obstruction from the mildly en larged prostate. 2. Small bilateral hydroceles. 3. Chronic bilateral L5 pars intra-articular is defects with anterior fusion of L5 on S1 with 1.6 cm anterolisthesis contributing to moderate to severe bilateral neural foraminal stenosis at this level. Reviewed, dictated and finalized at location A. OR ELECTRICAL DESIGN ENGINEER IMPRESSION: 1. A prior mass at the right trigonal region of the bladder (reportedly bladder cancer) is no longer visualized suggesting interval resection. Correlate with urologic history. Residual more diffuse mild mucosal trabeculation of the bladd er likely related to chronic outlet obstruction from the mildly enlarged prosta te. 2. Small bilateral hydroceles. 3. Chronic bilateral L5 pars intra-articular is defects with anterior fusion of L5 on S1 with 1.6 cm anterolisthesis contributing to moderate to severe bilate ral neural foraminal stenosis at this level.
--- NOTE | ~2022-06-16 | XR_ITS ---
XR chest 1V portable 06/16/2022 15:07 Indication: Hemoptysis. Cough. Covid. Procedure: AP portable chest Comparison: Comparison to multiple prior studies sequentially, with oldest reviewed study dated 07/2021. Findings: There is coarse interstitial changes in the upper lobes, unchanged from 12/09/2021. There i s apical pleural thickening/scarring in the left apex. No significant effusion. No acute focal pneumonia, edema or pneumothorax. Impression: 1: Stable coarse chronic interstitial changes of the upper lobes with stable left apical pleural thic kening/scarring. Reviewed, dictated and finalized at location A. OR ELECTRICAL ENGINEER Impression: 1: Stable coarse chronic interstitial changes of the upper lobes with stable le ft apical pleural thickening/scarring.
[2022-06-16 14:15] VITALS: BP 136/72; PULSE 87; RESP 22; TEMP 38.1; O2SAT 96
[2022-06-16 14:17] VITALS: BP 136/72; PULSE 87; RESP 22; TEMP 38.1; O2SAT 95
--- NOTE | 2022-06-16 14:56 | ED.GENADULT ---
HPI - General Adult General Chief complaint: Unspecified Stated complaint: SENT TO ER BY DR CARPIO Time Seen by Provider: 06/16/22 14:30 Source: patient, RN notes reviewed and old records reviewed Mode of arrival: wheelchair Limitations: no limitations History of Present Illness HPI narrative: 82-year-old male has been seen at his primary care physician office for UTI 2 days ago. He recently had scraping of his bladder for bladder cancer and had indwelling catheter. The catheter since been taken out I urinalysis showed evidence of UTI patient was started on IM Rocephin daily as an outpatient. Then yesterday began having cough dizziness and low blood pressure. He was tested for COVID tested positive. He was scheduled to get remdesivir but then his blood culture came back with positive Enterococcus. Dr. Carpio called me here at the hospital and believes the patient will need intravenous vancomycin. He denies any chest pain. He denies any significant shortness of breath. However due to his risk factors he will need remdesivir and possible steroids. MD complaint: Positive Blood Cultures and COVID Onset (ago): day(s) (1) Associated symptoms: cough, weakness and other ( nausea dizziness and low blood pressure 100-110 SBP) Related Data Home Medications Medication Instructions Recorded Confirmed albuterol sulfate 1.25 mg/3 mL 1.25 mg continuous nebulization 05/13/22 06/16/22 solution for nebulization PRN PRN Shortness Of Breath albuterol sulfate 90 mcg/actuation 2 puff inhalation PRN PRN Wheezing 05/13/22 06/16/22 aerosol inhaler (Ventolin HFA) allopurinol 100 mg tablet 100 mg PO DAILY 05/13/22 06/16/22 amlodipine 5 mg tablet 10 mg PO DAILY 05/13/22 06/16/22 bisoprolol fumarate 5 mg tablet 5 mg PO HS 05/13/22 06/16/22 budesonide-formoterol HFA 160 2 puff inhalation DAILY 05/13/22 06/16/22 mcg-4.5 mcg/actuation aerosol inhaler (Symbicort) celecoxib 200 mg capsule 200 mg PO DAILY 05/13/22 06/16/22 dulaglutide 4.5 mg/0.5 mL 4.5 mg subcut WEEKLY 05/13/22 06/16/22 subcutaneous pen injector (Trulicity) evolocumab 140 mg/mL subcutaneous 140 mg subcut MONTHLY 05/13/22 06/16/22 pen injector (Evelin Bansal) glimepiride 2 mg tablet 3 mg PO DAILY 05/13/22 06/16/22 losartan 100 mg tablet 100 mg PO HS 05/13/22 06/16/22 metformin 500 mg tablet,extended 2,000 mg PO DAILY 05/13/22 06/16/22 release 24 hr omeprazole 20 mg capsule,delayed 20 mg PO DAILY 05/13/22 06/16/22 release tamsulosin 0.4 mg capsule 0.4 mg PO DAILY 05/13/22 06/16/22 tiotropium bromide 18 mcg capsule 1 cap inhalation DAILY 05/13/22 06/16/22 with inhalation device (Spiriva with HandiHaler) hydrocodone 5 mg-acetaminophen 325 1 tablet PO QID PRN Pain 06/16/22 06/16/22 mg tablet Allergies Allergy/AdvReac Type Severity Reaction Status Date / Time No Known Allergies Allergy Unknown Verified 05/13/22 20:29 Review of Systems Review of Systems: All systems reviewed & are unremarkable except as noted in HPI and below Constitutional: Constitutional: Reports as per HPI PMFSH Past Medical History Medical History (Updated 06/16/22 @ 18:45 by Kelvin Anne MD) Bladder tumor BPH (benign prostatic hyperplasia) COPD (chronic obstructive pulmonary disease) GERD (gastroesophageal reflux disease) History of lung cancer Hyperlipidemia Hypertension Paroxysmal A-fib Type 2 diabetes mellitus Surgical History Surgical History (Updated 06/16/22 @ 15:44 by Kelvin Anne MD) History of knee replacement History of lobectomy of lung Hx of cholecystectomy Social History Social History (Updated 06/16/22 @ 15:45 by Kelvin Anne MD) Smoking status: Former smoker Exam Const: General: cooperative, healthy appearing, no acute distress and well nourished Nutritional Appearance: obese Orientation/consciousness: patient oriented x3 HENMT: Head: normal to inspection, normocephalic and atraumatic Ears: hearing grossly normal bilaterally and ext
[2022-06-16 15:29] LABS: Basophils Absolute Auto 0.03 K/mm3 (0.00-0.10); Basophils Percent Auto 0.3 % (0.0-1.0); Eosinophils Absolute Auto 0.11 K/mm3 (0.02-0.50); Eosinophils Percent Auto 1.3 % (1.0-6.0); Hematocrit 38.4 % (37.0-46.0); Hemoglobin 12.9 g/dL (12.4-15.3); Immature Granulocyte Absolute 0.03 K/mm3 (0.00-0.00); Immature Granulocyte Percent A 0.3 % (0.0-0.0); Lymphocytes Absolute Auto 1.08 K/mm3 (1.10-4.50); Lymphocytes Percent Auto 12.5 % (18.0-42.0); Mean Corpuscular HGB Conc 33.6 g/dL (32.0-36.0); Mean Corpuscular Hemoglobin 31.4 pg (27.0-31.0); Mean Corpuscular Volume 93.4 fL (78.0-102.0); Mean Platelet Volume 10.3 fl (8.7-11.0); Monocytes Absolute Auto 0.91 K/mm3 (0.10-0.90); Monocytes Percent Auto 10.5 % (2.0-11.0); Neutrophils Absolute Auto 6.5 K/mm3 (1.7-7.2); Neutrophils Percent Auto 75.1 % (50.0-70.0); Platelet Count Result 152 K/mm3 (150-420); Red Blood Count 4.11 M/mm3 (4.70-6.10); Red Cell Distribution Width 12.6 % (11.6-14.4); White Blood Count 8.6 K/mm3 (4.8-10.8)
[2022-06-16 15:46] LABS: Alanine Aminotransferase 42 U/L (16-63); Albumin Level 3.2 g/dL (3.4-5.0); Alkaline Phosphatase 127 U/L (46-116); Anion Gap 8 mmol/L (8-16); Aspartate Amino Transferase 49 U/L (15-37); Bilirubin,Total 0.5 mg/dL (0.00-1.00); Blood Urea Nitrogen 15 mg/dL (7-18); Calcium 8.6 mg/dL (8.5-10.1); Carbon Dioxide 28 mmol/L (21-32); Chloride 96 mmol/L (98-108); Estimated CRCL calculation 54 ml/min; Estimated Glomerular Filt Rate 58; Glucose 138 mg/dL (70-99); Magnesium 1.3 mg/dL (1.8-2.4); Osmolality Calculated 276 mOsm/kg (285-295); Potassium 4.5 mmol/L (3.5-5.1); Sodium 132 mmol/L (136-145); Total Protein 7.1 g/dL (6.4-8.2)
[2022-06-16 16:00] LABS: CRP 4.7 mg/dL (0.0-0.9); Ferritin 322 ng/mL (26-388)
[2022-06-16 16:09] LABS: Lactic Acid Reflex 0.9 mmol/L (0.4-2.0)
[2022-06-16] MEDS: MAGNESIUM SULF 2 GM/WATER 50ML 2 GM/50 ML BAG IVPB (16:15)
[2022-06-16] MEDS: SODIUM CHLORIDE 0.9% IV 1,000 ML 150 ML IV CONT (16:15)
[2022-06-16 16:26] VITALS: BP 136/94; PULSE 78; RESP 22; TEMP 37.6; O2SAT 98
[2022-06-16 17:49] VITALS: BP 140/66; PULSE 88; RESP 18; TEMP 36.2; O2SAT 96
[2022-06-16 18:42] VITALS: BP 132/84; PULSE 84; RESP 20; TEMP 37.9; O2SAT 98
[2022-06-16 19:26] LABS: INR 1.2; Prothrombin Time 12.9 Seconds (9.50-12.10)
--- NOTE | 2022-06-16 20:09 | PC.NURSE ---
Patient admitted to room 226 from the ER, is alert and oriented xs 4.
[2022-06-16 20:11] VITALS: BMI 33.4
[2022-06-16] MEDS: REMDESIVIR 200 MG/NS 250 ML 200 MG/250 ML BAG 250 MG IVPB (20:16)
--- NOTE | 2022-06-16 21:22 | PC.NURSE ---
PAtient refused blood pressure medds due to primary md telling him to hold them, MODEL ENGINE MECHANIC is aware.
[2022-06-16 21:34] LABS: Glucose Point of Care 132 mg/dl (65-105)
[2022-06-16 23:57] VITALS: BP 131/59; PULSE 76; RESP 20; TEMP 37; O2SAT 92
[2022-06-17 05:30] LABS: Basophils Absolute Auto 0.03 K/mm3 (0.00-0.10); Basophils Percent Auto 0.4 % (0.0-1.0); Eosinophils Absolute Auto 0.21 K/mm3 (0.02-0.50); Eosinophils Percent Auto 2.5 % (1.0-6.0); Hematocrit 37.7 % (37.0-46.0); Hemoglobin 12.8 g/dL (12.4-15.3); Immature Granulocyte Absolute 0.03 K/mm3 (0.00-0.00); Immature Granulocyte Percent A 0.4 % (0.0-0.0); Lymphocytes Absolute Auto 1.32 K/mm3 (1.10-4.50); Lymphocytes Percent Auto 15.8 % (18.0-42.0); Mean Corpuscular Hemoglobin 31.5 pg (27.0-31.0); Mean Corpuscular Volume 92.9 fL (78.0-102.0); Mean Platelet Volume 10.9 fl (8.7-11.0); Monocytes Absolute Auto 1.02 K/mm3 (0.10-0.90); Monocytes Percent Auto 12.2 % (2.0-11.0); Neutrophils Absolute Auto 5.8 K/mm3 (1.7-7.2); Neutrophils Percent Auto 68.7 % (50.0-70.0); Platelet Count Result 152 K/mm3 (150-420); Red Blood Count 4.06 M/mm3 (4.70-6.10); Red Cell Distribution Width 12.5 % (11.6-14.4); White Blood Count 8.4 K/mm3 (4.8-10.8)
[2022-06-17 05:49] LABS: Alanine Aminotransferase 35 U/L (16-63); Albumin Level 2.9 g/dL (3.4-5.0); Alkaline Phosphatase 114 U/L (46-116); Anion Gap 8 mmol/L (8-16); Aspartate Amino Transferase 45 U/L (15-37); Bilirubin,Total 0.4 mg/dL (0.00-1.00); Blood Urea Nitrogen 11 mg/dL (7-18); Calcium 8.4 mg/dL (8.5-10.1); Carbon Dioxide 27 mmol/L (21-32); Chloride 99 mmol/L (98-108); Estimated CRCL calculation 64 ml/min; Estimated Glomerular Filt Rate > 60; Glucose 124 mg/dL (70-99); Osmolality Calculated 278 mOsm/kg (285-295); Potassium 4.5 mmol/L (3.5-5.1); Sodium 134 mmol/L (136-145); Total Protein 6.5 g/dL (6.4-8.2)
[2022-06-17 05:59] LABS: INR 1.2; Prothrombin Time 12.6 Seconds (9.50-12.10)
[2022-06-17 08:00] VITALS: PULSE 80; RESP 18; TEMP 36.8; O2SAT 93
[2022-06-17 08:29] VITALS: PULSE 80; RESP 18; O2SAT 93
[2022-06-17 08:29] LABS: Magnesium 1.5 mg/dL (1.8-2.4)
[2022-06-17] MEDS: DEXAMETHASONE SOD PHOS INJ 4 MG/ML VIAL 6 MG IV PUSH (09:09)
[2022-06-17] MEDS: MAGNESIUM SULF 2 GM/WATER 50ML 2 GM/50 ML BAG IVPB (10:07)
[2022-06-17 11:43] LABS: Glucose Point of Care 212 mg/dl (65-105)
--- NOTE | 2022-06-17 14:49 | PM.IMHP ---
H&P: HPI History of Present Illness Date/Time: 06/17/22 14:49 Chief Complaint: covid, uti, pOSITIVE BLOOD CULTURE Narrative: Mr. Martinez is a patient of Dr. Carpio kidney cancer has been positive for COVID with Anoro Paxil bid his continued to be weak his positive blood cultures will receive an outpatient I a.m. injections but is not shown improvement. Patient has been admitted to be treated with IV antibiotics we will continue to treat and monitor for him to be therapeutic as well as insert and that the medication is working. We will consult Infectious Disease pharmacist monitor patient's levels patient was with myc and hypotensive DrMaryanne Landis has taken him off of some oral blood pressure medication which she has been declining and life for us to follow up with Dr. Carpio to ensure when he will start the medication. At this time we will treat patient with IV fluids IV vancomycin IV steroids he has not required any medications for URI he is having a cough and he has had a fever so we will treat him antipyretics Review of Systems Review of Systems: Weakness, Positve blood cultures All systems reviewed & are unremarkable except as noted in HPI and below PMFSH Past Medical History Medical History (Updated 06/24/22 @ 11:27 by GREER ColinC) Bladder tumor BPH (benign prostatic hyperplasia) COPD (chronic obstructive pulmonary disease) GERD (gastroesophageal reflux disease) History of lung cancer Hyperlipidemia Hypertension Paroxysmal A-fib Type 2 diabetes mellitus Surgical History Surgical History History of knee replacement History of lobectomy of lung Hx of cholecystectomy Social History Social History Smoking status: Former smoker Second hand tobacco smoke exposure: No Alcohol intake: current Substance use: never Lack of Transportation: No Lack of Food: Never True Current Housing: I Have Housing Concerned About Future Housing: No Difficulty Paying Gas/Electric Bills: No Difficulty Paying for Meds: No Currently Unemployed: No Education: Master's Degree or Higher Difficulty w/ Childcare or Family Care: No Spiritual care concerns: No Comments AT TIME SIGNATURE, I HAVE REVIEWED AND AGREE WITH NURSING PAST MEDICAL, SOCIAL, SURGICAL AND FAMILY HISTORY. PLEASE SEE NURSING CHART FOR FURTHER INFORMATION. THERE IS NO RELEVANT FAMILY HISTORY PERTINENT TO THE PRESENTING COMPLAINT. Meds Home Medications and Allergies Home Medications Medication Instructions Recorded Confirmed Type albuterol sulfate 1.25 mg/3 mL 1.25 mg continuous nebulization 05/13/22 06/16/22 History solution for nebulization PRN PRN Shortness Of Breath albuterol sulfate 90 mcg/actuation 2 puff inhalation PRN PRN Wheezing 05/13/22 06/16/22 History aerosol inhaler (Ventolin HFA) allopurinol 100 mg tablet 100 mg PO DAILY 05/13/22 06/16/22 History amlodipine 5 mg tablet 10 mg PO DAILY 05/13/22 06/16/22 History bisoprolol fumarate 5 mg tablet 5 mg PO HS 05/13/22 06/16/22 History budesonide-formoterol HFA 160 2 puff inhalation DAILY 05/13/22 06/16/22 History mcg-4.5 mcg/actuation aerosol inhaler (Symbicort) celecoxib 200 mg capsule 200 mg PO DAILY 05/13/22 06/16/22 History dulaglutide 4.5 mg/0.5 mL 4.5 mg subcut WEEKLY 05/13/22 06/16/22 History subcutaneous pen injector (Giovaniulicjacob) evolocumab 140 mg/mL subcutaneous 140 mg subcut MONTHLY 05/13/22 06/16/22 History pen injector (Evelin Bansal) glimepiride 2 mg tablet 3 mg PO DAILY 05/13/22 06/16/22 History losartan 100 mg tablet 100 mg PO HS 05/13/22 06/16/22 History metformin 500 mg tablet,extended 2,000 mg PO DAILY 05/13/22 06/16/22 History release 24 hr omeprazole 20 mg capsule,delayed 20 mg PO DAILY 05/13/22 06/16/22 History release tamsulosin 0.4 mg capsule 0.4 mg PO DAILY 05/13/22 06/16/22 History tiotropium bromide 18 mcg capsul
[2022-06-17 16:00] VITALS: BP 141/101; PULSE 72; RESP 18; TEMP 36.2; O2SAT 93
[2022-06-17 17:16] LABS: Glucose Point of Care 225 mg/dl (65-105)
--- NOTE | 2022-06-17 17:51 | PC.NURSE ---
Patient in chair working on his computer. Alert and oriented X3. Able to verbalize needs. Able to ambulate to/from bathroom without difficulty.Cont of bowel and bladder. Fed self supper without difficulty. Pleasant and cooperative. Blood pressure elevated, this nurse spoke with patient about taking his blood pressure medications and patient stated he wanted to continue on the course his PCP told him and will not take his bp meds. Hospitalist aware.
[2022-06-17 20:48] LABS: Glucose Point of Care 263 mg/dl (65-105)
[2022-06-17 21:00] VITALS: PULSE 62
--- NOTE | 2022-06-17 22:35 | PC.NURSE ---
Patient's IV site was in left AC and patient was bending his arm stopping the infusion. New 22 gauge IV to left forearm started, Vancomycin infusion running longer than scheduled.
[2022-06-18] VITALS: BP 136/72; PULSE 64; RESP 20; TEMP 36.2; O2SAT 94
[2022-06-18] MEDS: REMDESIVIR 100 MG/NS 250 ML 100 MG/250 ML BAG 250 MG IVPB (00:08)
--- NOTE | 2022-06-18 00:11 | PC.NURSE ---
IV Remdesivir infusing as ordered; Pt resting quietly in bed and doesnt voice any c/o shortness of breath or discomfort.
--- NOTE | 2022-06-18 01:15 | PC.NURSE ---
275 ml of clear, yellow urine emptied from the urinal. Pt continues to watch TV and no signs of shortness of breath noted.
--- NOTE | 2022-06-18 03:06 | PC.NURSE ---
Pt up to the bathroom per self to void.
--- NOTE | 2022-06-18 05:00 | PC.NURSE ---
Pt asleep and no signs of respiratory distress noted.
--- NOTE | 2022-06-18 05:08 | PC.NURSE ---
Pt up in the chair and watching TV; Pt doesnt voice any c/o shortness of breath.
[2022-06-18] MEDS: MAGNESIUM SULF 2 GM/WATER 50ML 2 GM/50 ML BAG IVPB (05:24)
[2022-06-18 05:45] LABS: Basophils Absolute Auto 0.02 K/mm3 (0.00-0.10); Basophils Percent Auto 0.2 % (0.0-1.0); Eosinophils Absolute Auto 0.01 K/mm3 (0.02-0.50); Eosinophils Percent Auto 0.1 % (1.0-6.0); Hematocrit 42.1 % (37.0-46.0); Immature Granulocyte Absolute 0.06 K/mm3 (0.00-0.00); Immature Granulocyte Percent A 0.5 % (0.0-0.0); Lymphocytes Absolute Auto 1.32 K/mm3 (1.10-4.50); Mean Corpuscular HGB Conc 33.3 g/dL (32.0-36.0); Mean Corpuscular Hemoglobin 30.3 pg (27.0-31.0); Mean Corpuscular Volume 91.1 fL (78.0-102.0); Mean Platelet Volume 10.6 fl (8.7-11.0); Monocytes Absolute Auto 0.81 K/mm3 (0.10-0.90); Monocytes Percent Auto 6.8 % (2.0-11.0); Neutrophils Absolute Auto 9.8 K/mm3 (1.7-7.2); Neutrophils Percent Auto 81.4 % (50.0-70.0); Platelet Count Result 171 K/mm3 (150-420); Red Blood Count 4.62 M/mm3 (4.70-6.10); Red Cell Distribution Width 12.2 % (11.6-14.4)
[2022-06-18 05:59] LABS: Alanine Aminotransferase 36 U/L (16-63); Albumin Level 3.2 g/dL (3.4-5.0); Alkaline Phosphatase 137 U/L (46-116); Anion Gap 10 mmol/L (8-16); Aspartate Amino Transferase 37 U/L (15-37); Bilirubin,Total 0.4 mg/dL (0.00-1.00); Blood Urea Nitrogen 14 mg/dL (7-18); Calcium 8.9 mg/dL (8.5-10.1); Carbon Dioxide 25 mmol/L (21-32); Chloride 101 mmol/L (98-108); Estimated CRCL calculation 67 ml/min; Estimated Glomerular Filt Rate > 60; Glucose 179 mg/dL (70-99); Magnesium 1.7 mg/dL (1.8-2.4); Osmolality Calculated 286 mOsm/kg (285-295); Potassium 4.6 mmol/L (3.5-5.1); Sodium 136 mmol/L (136-145); Total Protein 7.4 g/dL (6.4-8.2)
[2022-06-18 06:05] LABS: INR 1.2; Prothrombin Time 12.6 Seconds (9.50-12.10)
--- NOTE | 2022-06-18 06:31 | PC.NURSE ---
IV site to the left antecubital removed per pt's request
[2022-06-18 07:50] LABS: Glucose Point of Care 153 mg/dl (65-105)
[2022-06-18 08:00] VITALS: BP 122/68; PULSE 56; RESP 18; TEMP 36.1; O2SAT 95
[2022-06-18] MEDS: ACETAMINOPHEN 325 MG TABLET 650 MG PO (08:10)
[2022-06-18] MEDS: amLODIPine BESYLATE 5 MG TABLET 10 MG PO (09:41)
[2022-06-18] MEDS: DEXAMETHASONE SOD PHOS INJ 4 MG/ML VIAL 6 MG IV PUSH (09:42)
[2022-06-18 11:32] LABS: Glucose Point of Care 225 mg/dl (65-105)
--- NOTE | 2022-06-18 12:28 | WPDPN ---
Progress Note: A&P Assessment and Plan (1) Blood bacterial culture positive: Code(s): R78.81 - Bacteremia Status: Acute Assessment and Plan: Positive blood culture and urine cultures IV Vancomycin Spoke ID pharmacist appropriate antibiotic obtain requested recheck BC today (2) COVID-19: Code(s): U07.1 - COVID-19 Status: Acute Assessment and Plan: previously on paxlovid getting IV steroid breathing treatment as indicated oxygen as indicated treat symptoms remdesivir day 2 (3) Hypomagnesemia: Code(s): E83.42 - Hypomagnesemia Status: Acute Assessment and Plan: IV mag given Mag 1.7 oral mag started (4) Bladder tumor: Code(s): D49.4 - Neoplasm of unspecified behavior of bladder Status: Acute Assessment and Plan: Will follow up with oncologist outpatient (5) Hypertension: Code(s): I10 - Essential (primary) hypertension Status: Acute Assessment and Plan: monitor blood pressure spoke with dr Carpio and he cleared to start Norvasc as pt not willing to start without his permission Ok to take norvasc Subjective Date/time seen: 06/18/22 12:28 Interval history: Patient is improving and is continuing on IV antibiotic he has remained afebrile and we ill draw blood cultures repeat today Exam Narrative: GENERAL:WELL-APPEARING, WELL-NOURISHED, AND IN NO ACUTE DISTRESS. HEAD:NORMOCEPHALIC, ATRAUMATIC. EYES: PERRLA AND EOMI. ENT: NARES CLEAR,moderate RHINORRHEA OR EPISTAXIS. MUCOUS MEMBRANES MOIST. NECK: SUPPLE. CHEST: CLEAR TO course AUSCULTATION. NO RESPIRATORY DISTRESS. HEART: REGULAR RATE AND RHYTHM. NORMAL PERIPHERAL PULSES. ABDOMEN: SOFT, NONTENDER, NONDISTENDED, NORMAL ACTIVE BOWEL SOUNDS. EXTREMITIES: NORMAL RANGE OF MOTION. NO EDEMA. SKIN: WARM, DRY, NO RASH. NEURO: NO FOCAL DEFICITS. ALERT AND ORIENTED X3. Objective Data Vital Signs Vital Signs: Vital Signs - 24 hr 06/17/22 16:00 06/17/22 21:00 06/18/22 00:00 Temperature 97.2 F L 97.2 F L Pulse Rate 72 62 64 Respiratory Rate 18 20 Blood Pressure 141/101 H 136/72 Pulse Oximetry 93 94 Oxygen Delivery Room Air Room Air 06/18/22 08:00 Temperature 97 F L Pulse Rate 56 L Respiratory Rate 18 Blood Pressure 122/68 Pulse Oximetry 95 Oxygen Delivery Room Air Intake/Output Intake/Output: Intake & Output 06/15/22 06/16/22 06/17/22 06/18/22 23:59 23:59 23:59 23:59 Intake Total 500 2710 540 Output Total 2125 275 Balance 500 585 265 Meds/Results Medications: Active Medications Generic Name Dose Route Start Last Admin Trade Name Freq PRN Reason Stop Dose Admin Acetaminophen 650 mg 06/16/22 18:49 06/18/22 08:10 Acetaminophen 325 Mg Tablet PO 650 mg Q4H PRN Administration Mild Pain (1-3) or Fever Hydrocodone Bitart/Acetaminophen 1 tab 06/16/22 18:53 Hydrocodone/Acetaminophen (*Crx) 5-325 Mg Tablet PO QID PRN PAIN RATED 4-6 Albuterol 1.25 mg 06/16/22 18:53 Albuterol Sulfate Neb 1.25 Mg/3 Ml Inh INHALATION Q6HRT PRN Shortness Of Breath Allopurinol 100 mg 06/17/22 09:00 06/18/22 09:41 Allopurinol 100 Mg Tablet PO Not Given DAILY KADEEM Amlodipine Besylate 10 mg 06/17/22 09:00 06/18/22 09:41 Amlodipine Besylate 5 Mg Tablet PO 10 mg DAILY KADEEM Administration Bisoprolol Fumarate 5 mg 06/16/22 21:00 06/17/22 21:00 Bisoprolol Fumarate 5 Mg Tablet PO Not Given HS KADEEM Celecoxib 200 mg 06/17/22 09:00 06/18/22 09:42 Celecoxib 100 Mg Capsule PO Not Given DAILY KADEEM Dexamethasone Sodium Phosphate 6 mg 06/17/22 09:00 06/18/22 09:42 Dexamethasone Sod Phos Inj 4 Mg/Ml Vial IV PUSH 06/26/22 09:01 6 mg DAILY KADEEM Administration Dextrose 12.5 gm 06/16/22 21:19 Dextrose 50% 25 Gm/50 Ml Syringe IV PUSH PRN PRN Hypoglycemia Protocol Glucagon 1 mg 06/16/22 21:19 Glucagon For Inj 1 Mg Vial IM PRN
[2022-06-18 16:35] VITALS: BP 146/67; PULSE 57; RESP 18; TEMP 36.3; O2SAT 99
[2022-06-18 17:03] LABS: Glucose Point of Care 232 mg/dl (65-105)
[2022-06-18] MEDS: LOSARTAN POTASSIUM 50 MG TABLET 100 MG PO (20:13)
[2022-06-18 20:24] LABS: Glucose Point of Care 303 mg/dl (65-105)
[2022-06-18 23:37] VITALS: BP 129/72; PULSE 60; RESP 16; TEMP 36.2; O2SAT 97
[2022-06-19] MEDS: REMDESIVIR 100 MG/NS 250 ML 100 MG/250 ML BAG 250 MG IVPB (00:21)
--- NOTE | 2022-06-19 04:11 | PC.NURSE ---
0310 report from irvin cisneros. resumed care. no questions or concerns at this time. 0330 pt sleeping. call chua and bedside table with in reach. cpap apparatus in place. respirations even and unlabored. continues on covid isolation precautions.
[2022-06-19 05:19] LABS: Hematocrit 39.7 % (37.0-46.0); Hemoglobin 13.2 g/dL (12.4-15.3); Mean Corpuscular HGB Conc 33.2 g/dL (32.0-36.0); Mean Corpuscular Hemoglobin 30.8 pg (27.0-31.0); Mean Corpuscular Volume 92.5 fL (78.0-102.0); Mean Platelet Volume 10.7 fl (8.7-11.0); Platelet Count Result 157 K/mm3 (150-420); Red Blood Count 4.29 M/mm3 (4.70-6.10); Red Cell Distribution Width 12.4 % (11.6-14.4); White Blood Count 11.9 K/mm3 (4.8-10.8)
[2022-06-19 05:33] LABS: INR 1.2; Prothrombin Time 13.1 Seconds (9.50-12.10)
[2022-06-19 05:34] LABS: Alanine Aminotransferase 36 U/L (16-63); Anion Gap 8 mmol/L (8-16); Blood Urea Nitrogen 15 mg/dL (7-18); Calcium 8.8 mg/dL (8.5-10.1); Carbon Dioxide 26 mmol/L (21-32); Chloride 103 mmol/L (98-108); Estimated CRCL calculation 66 ml/min; Estimated Glomerular Filt Rate > 60; Glucose 187 mg/dL (70-99); Osmolality Calculated 289 mOsm/kg (285-295); Potassium 4.5 mmol/L (3.5-5.1); Sodium 137 mmol/L (136-145)
--- NOTE | 2022-06-19 06:48 | PC.NURSE ---
report to ERYN Vera
[2022-06-19 08:00] VITALS: BP 109/60; PULSE 65; RESP 18; TEMP 36.4; O2SAT 95
[2022-06-19 08:21] LABS: Glucose Point of Care 143 mg/dl (65-105)
--- NOTE | 2022-06-19 09:00 | PC.NURSE ---
Patient does not take any of his scheduled PO medications except for his blood pressure medication, per Dr. Casillas. This came about due to patient having an upset stomach on day of admission and patient received IV medication at that time. Medications marked as refused, and patient states that he will resume all other medications upon discharge.
[2022-06-19] MEDS: DEXAMETHASONE SOD PHOS INJ 4 MG/ML VIAL 6 MG IV PUSH (09:20)
[2022-06-19] MEDS: amLODIPine BESYLATE 5 MG TABLET 10 MG PO (09:23)
[2022-06-19] MEDS: MAGNESIUM OXIDE 400 MG TABLET PO (09:23)
--- NOTE | 2022-06-19 10:30 | WPDPN ---
Progress Note: A&P Assessment and Plan (1) Blood bacterial culture positive: Code(s): R78.81 - Bacteremia Status: Acute Assessment and Plan: Positive blood culture and urine cultures IV Vancomycin Spoke ID pharmacist appropriate antibiotic obtain requested recheck BC today Blood cultures still pending awaiting results (2) COVID-19: Code(s): U07.1 - COVID-19 Status: Acute Assessment and Plan: previously on paxlovid getting IV steroid breathing treatment as indicated oxygen as indicated treat symptoms afebrile (3) Hypomagnesemia: Code(s): E83.42 - Hypomagnesemia Status: Acute Assessment and Plan: IV mag given Mag 1.7 oral mag started (4) 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 Carpio and he cleared to start Norvasc as pt not willing to start without his permission Ok to take Norvasc Patient continues to take oral Norvasc Subjective Date/time seen: 06/19/22 10:30 Interval history: Patient is feeling a lot better today. He has remained afebrile still congested. discussed with patient about waiting on repeat blood cultures as I spoke with infectious disease pharmacist. Patient is needing something for some pain in the back and then we will anticapate discharge in the next couple of days. Exam Narrative: GENERAL:WELL-APPEARING, WELL-NOURISHED, AND IN NO ACUTE DISTRESS. HEAD:NORMOCEPHALIC, ATRAUMATIC. EYES: PERRLA AND EOMI. ENT: NARES CLEAR, mild RHINORRHEA OR EPISTAXIS. MUCOUS MEMBRANES MOIST. NECK: SUPPLE. CHEST: CLEAR TO course AUSCULTATION. NO RESPIRATORY DISTRESS. HEART: REGULAR RATE AND RHYTHM.NORMAL PERIPHERAL PULSES. ABDOMEN: SOFT, NONTENDER, NONDISTENDED, NORMAL ACTIVE BOWEL SOUNDS. EXTREMITIES: NORMAL RANGE OF MOTION. NO EDEMA. SKIN: WARM, DRY, NO RASH. NEURO: NO FOCAL DEFICITS. ALERT AND ORIENTED X3. Objective Data Vital Signs Vital Signs: Vital Signs - 24 hr 06/18/22 16:35 06/18/22 23:37 06/19/22 08:00 Temperature 97.3 F L 97.1 F L 97.6 F Pulse Rate 57 L 60 65 Respiratory Rate 18 16 18 Blood Pressure 146/67 H 129/72 109/60 Pulse Oximetry 99 97 95 Oxygen Delivery Room Air Room Air Room Air Intake/Output Intake/Output: Intake & Output 06/16/22 06/17/22 06/18/22 06/19/22 23:59 23:59 23:59 23:59 Intake Total 500 2710 2550.00 930 Output Total 2125 275 675 Balance 548 093 8431.00 255 Meds/Results Medications: Active Medications Generic Name Dose Route Start Last Admin Trade Name Freq PRN Reason Stop Dose Admin Acetaminophen 650 mg 06/16/22 18:49 06/18/22 08:10 Acetaminophen 325 Mg Tablet PO 650 mg Q4H PRN Administration Mild Pain (1-3) or Fever Hydrocodone Bitart/Acetaminophen 1 tab 06/16/22 18:53 Hydrocodone/Acetaminophen (*Crx) 5-325 Mg Tablet PO QID PRN PAIN RATED 4-6 Albuterol 1.25 mg 06/16/22 18:53 Albuterol Sulfate Neb 1.25 Mg/3 Ml Inh INHALATION Q6HRT PRN Shortness Of Breath Allopurinol 100 mg 06/17/22 09:00 06/19/22 09:39 Allopurinol 100 Mg Tablet PO Not Given DAILY KADEEM Amlodipine Besylate 10 mg 06/17/22 09:00 06/19/22 09:23 Amlodipine Besylate 5 Mg Tablet PO 10 mg DAILY KADEEM Administration Bisoprolol Fumarate 5 mg 06/16/22 21:00 06/18/22 20:13 Bisoprolol Fumarate 5 Mg Tablet PO Not Given HS KADEEM Celecoxib 200 mg 06/17/22 09:00 06/19/22 09:38 Celecoxib 100 Mg Capsule PO Not Given DAILY KADEEM Dexamethasone Sodium Phosphate 6 mg 06/17/22 09:00 06/19/22 09:20 Dexamethasone Sod Phos Inj 4 Mg/Ml Vial IV PUSH 06/26/22 09:01 6 mg DAILY KADEEM Administration Dextrose 12.5 gm 06/16/22 21:19
[2022-06-19] MEDS: ACETAMINOPHEN 325 MG TABLET 650 MG PO (10:50)
[2022-06-19 11:46] LABS: Glucose Point of Care 207 mg/dl (65-105)
[2022-06-19 16:00] VITALS: BP 145/66; PULSE 75; RESP 16; TEMP 36.5; O2SAT 96
[2022-06-19 16:41] LABS: Glucose Point of Care 290 mg/dl (65-105)
--- NOTE | 2022-06-19 20:09 | PC.NURSE ---
Laboratory called to report critical information - blood culture in one anaerobic bottle had gram positive cocci in chains. Called a second time to report gram positive cocci in chains in both anaerobic bottles. Called a third time to report gram positive cocci in chains in one aerobic bottle. [employer] was informed.
--- NOTE | 2022-06-19 20:15 | PC.NURSE ---
Vancomycin was infused at 250 ml per hr.
[2022-06-19 20:29] LABS: Vancomycin Trough 5.4 ug/mL (10.0-15.0)
[2022-06-19 20:38] LABS: Glucose Point of Care 272 mg/dl (65-105)
[2022-06-20] VITALS: BP 132/66; PULSE 52; RESP 18; TEMP 36.2; O2SAT 98
[2022-06-20] MEDS: REMDESIVIR 100 MG/NS 250 ML 100 MG/250 ML BAG 250 MG IVPB ×2 (00:45→23:10)
[2022-06-20 07:24] LABS: Alanine Aminotransferase 47 U/L (16-63); Estimated CRCL calculation 68 ml/min; Estimated Glomerular Filt Rate > 60
[2022-06-20 07:29] LABS: INR 1.2
[2022-06-20 07:47] LABS: Glucose Point of Care 162 mg/dl (65-105)
[2022-06-20 08:00] VITALS: BP 163/82; PULSE 52; RESP 16; TEMP 36.1; O2SAT 97
[2022-06-20] MEDS: DEXAMETHASONE SOD PHOS INJ 4 MG/ML VIAL 6 MG IV PUSH (08:36)
[2022-06-20] MEDS: MAGNESIUM OXIDE 400 MG TABLET PO (08:39)
[2022-06-20] MEDS: amLODIPine BESYLATE 5 MG TABLET 10 MG PO (08:39)
--- NOTE | 2022-06-20 11:34 | WPDPN ---
Progress Note: A&P Assessment and Plan (1) Blood bacterial culture positive: Code(s): R78.81 - Bacteremia Status: Acute Assessment and Plan: Positive blood culture and urine cultures IV Vancomycin Spoke ID pharmacist appropriate antibiotic obtain requested recheck BC today Blood cultures still pending awaiting results (2) COVID-19: Code(s): U07.1 - COVID-19 Status: Acute Assessment and Plan: previously on paxlovid getting IV steroid breathing treatment as indicated oxygen as indicated treat symptoms afebrile (3) Hypomagnesemia: Code(s): E83.42 - Hypomagnesemia Status: Acute Assessment and Plan: IV mag given Mag 1.7 oral mag started (4) 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 Carpio and he cleared to start Norvasc as pt not willing to start without his permission Ok to take Norvasc Patient continues to take oral Norvasc Subjective Date/time seen: 06/20/22 11:34 Interval history: Blood cultures still growing gram positive cocci. Will await recommendation from ID pharmacist in the morning. Patient showing improvement and he is feeling better. At this time he would like to be reswabed in the morning for COVID Exam Narrative: GENERAL:WELL-APPEARING, WELL-NOURISHED, AND IN NO ACUTE DISTRESS. HEAD:NORMOCEPHALIC, ATRAUMATIC. EYES: PERRLA AND EOMI. ENT: NARES CLEAR,moderate RHINORRHEA OR EPISTAXIS. MUCOUS MEMBRANES MOIST. NECK: SUPPLE. CHEST: CLEAR TO course AUSCULTATION. NO RESPIRATORY DISTRESS. HEART: REGULAR RATE AND RHYTHM. NORMAL PERIPHERAL PULSES. ABDOMEN: SOFT, NONTENDER, NONDISTENDED, NORMAL ACTIVE BOWEL SOUNDS. EXTREMITIES: NORMAL RANGE OF MOTION. NO EDEMA. SKIN: WARM, DRY, NO RASH. NEURO: NO FOCAL DEFICITS. ALERT AND ORIENTED X3. Objective Data Vital Signs Vital Signs: Vital Signs - 24 hr 06/19/22 16:00 06/20/22 00:00 06/20/22 08:00 Temperature 97.7 F 97.1 F L 97.0 F L Pulse Rate 75 52 L 52 L Respiratory Rate 16 18 16 Blood Pressure 145/66 H 132/66 163/82 H Pulse Oximetry 96 98 97 Oxygen Delivery Room Air Room Air Room Air Intake/Output Intake/Output: Intake & Output 06/17/22 06/18/22 06/19/22 06/20/22 23:59 23:59 23:59 23:59 Intake Total 2710 2550.00 2860 2070 Output Total 2125 098 682 0013 Balance 585 2275.00 2185 270 Meds/Results Medications: Active Medications Generic Name Dose Route Start Last Admin Trade Name Freq PRN Reason Stop Dose Admin Acetaminophen 650 mg 06/16/22 18:49 06/19/22 10:50 Acetaminophen 325 Mg Tablet PO 650 mg Q4H PRN Administration Mild Pain (1-3) or Fever Hydrocodone Bitart/Acetaminophen 1 tab 06/16/22 18:53 Hydrocodone/Acetaminophen (*Crx) 5-325 Mg Tablet PO QID PRN PAIN RATED 4-6 Albuterol 1.25 mg 06/16/22 18:53 Albuterol Sulfate Neb 1.25 Mg/3 Ml Inh INHALATION Q6HRT PRN Shortness Of Breath Allopurinol 100 mg 06/17/22 09:00 06/20/22 08:34 Allopurinol 100 Mg Tablet PO Not Given DAILY KADEEM Amlodipine Besylate 10 mg 06/17/22 09:00 06/20/22 08:39 Amlodipine Besylate 5 Mg Tablet PO 10 mg DAILY KADEEM Administration Bisoprolol Fumarate 5 mg 06/16/22 21:00 06/19/22 20:39 Bisoprolol Fumarate 5 Mg Tablet PO Not Given HS KADEEM Celecoxib 200 mg 06/17/22 09:00 06/20/22 08:34 Celecoxib 100 Mg Capsule PO Not Given DAILY KADEEM Dexamethasone Sodium Phosphate 6 mg 06/17/22 09:00 06/20/22 08:36 Dexamethasone Sod Phos Inj 4 Mg/Ml Vial IV PUSH 06/26/22 09:01 6 mg DAILY KADEEM Administration Dextrose 12.5 gm 06/16/22 21:19 Dextrose 50% 25 Gm/50 Ml Syringe IV PUSH PRN PRN Hypog
[2022-06-20 11:41] LABS: Glucose Point of Care 236 mg/dl (65-105)
[2022-06-20 16:00] VITALS: BP 128/71; PULSE 58; RESP 16; TEMP 36.6; O2SAT 97
[2022-06-20 16:19] LABS: Glucose Point of Care 337 mg/dl (65-105)
--- NOTE | 2022-06-20 19:21 | PC.NURSE ---
pond tender aware of blood sugar over 300.
[2022-06-20 20:54] LABS: Glucose Point of Care 281 mg/dl (65-105)
[2022-06-21] VITALS: BP 136/74; PULSE 59; RESP 20; TEMP 36.3; O2SAT 96
[2022-06-21 06:03] LABS: Hematocrit 39.8 % (37.0-46.0); Hemoglobin 13.3 g/dL (12.4-15.3); Mean Corpuscular HGB Conc 33.4 g/dL (32.0-36.0); Mean Corpuscular Hemoglobin 30.6 pg (27.0-31.0); Mean Corpuscular Volume 91.7 fL (78.0-102.0); Mean Platelet Volume 10.7 fl (8.7-11.0); Platelet Count Result 156 K/mm3 (150-420); Red Blood Count 4.34 M/mm3 (4.70-6.10); Red Cell Distribution Width 12.4 % (11.6-14.4); White Blood Count 11.5 K/mm3 (4.8-10.8)
[2022-06-21 06:12] LABS: Anion Gap 9 mmol/L (8-16); Blood Urea Nitrogen 16 mg/dL (7-18); Calcium 8.9 mg/dL (8.5-10.1); Carbon Dioxide 27 mmol/L (21-32); Chloride 100 mmol/L (98-108); Estimated CRCL calculation 62 ml/min; Estimated Glomerular Filt Rate > 60; Glucose 191 mg/dL (70-99); Osmolality Calculated 288 mOsm/kg (285-295); Potassium 4.2 mmol/L (3.5-5.1); Sodium 136 mmol/L (136-145)
[2022-06-21 06:52] LABS: SARS-CoV-2 RNA PCR Positive (Negative)
[2022-06-21 08:00] VITALS: BP 133/70; PULSE 55; RESP 16; TEMP 36.1; O2SAT 96
[2022-06-21 08:07] LABS: Glucose Point of Care 139 mg/dl (65-105)
[2022-06-21] MEDS: amLODIPine BESYLATE 5 MG TABLET 10 MG PO (09:03)
[2022-06-21] MEDS: TAMSULOSIN HCL 0.4 MG CAPSULE PO (09:03)
[2022-06-21] MEDS: DEXAMETHASONE SOD PHOS INJ 4 MG/ML VIAL 6 MG IV PUSH (09:04)
[2022-06-21] MEDS: CELECOXIB 100 MG CAPSULE 200 MG PO (09:04)
[2022-06-21] MEDS: MAGNESIUM OXIDE 400 MG TABLET PO (09:04)
[2022-06-21] MEDS: allopurinoL 100 MG TABLET PO (09:05)
[2022-06-21 11:40] LABS: Glucose Point of Care 248 mg/dl (65-105)
--- NOTE | 2022-06-21 13:24 | WPDPN ---
Progress Note: A&P Assessment and Plan (1) Blood bacterial culture positive: Code(s): R78.81 - Bacteremia Status: Acute Assessment and Plan: Positive blood culture and urine cultures IV Vancomycin Spoke ID pharmacist appropriate antibiotic obtain requested recheck BC today Blood cultures positive and growing enterococcus faecalis Spoke with infectious disease Pharmacist today and patient is in need of staying until he is not growing anything once that happens he can be set up with a PICC line and have outpatient IV therapy. Spo (2) COVID-19: Code(s): U07.1 - COVID-19 Status: Acute Assessment and Plan: previously on paxlovid getting IV steroid breathing treatment as indicated oxygen as indicated treat symptoms afebrile continue to be asymptomatic at this time (3) Hypomagnesemia: Code(s): E83.42 - Hypomagnesemia Status: Acute Assessment and Plan: IV mag given Mag 1.7 oral mag started (4) 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 Carpio and he cleared to start Norvasc as pt not willing to start without his permission Ok to take Norvasc Patient continues to take oral Norvasc Subjective Date/time seen: 06/21/22 13:24 Interval history: Mr. Martinez continues to improve and is feeling a lot better although his blood cultures are still growing Enterococcus faecium list. With Infectious Disease pharmacist and will recommend that patient has repeat blood cultures drawn today if nothing is growing we will then plan on him to have a PICC line placed and he will have outpatient IV therapy at this time we will continue her plan of care until we can get negative blood culture she is currently getting IV vanc twice a day will have tropes for trough drawn tonight. Exam Narrative: GENERAL:WELL-APPEARING, WELL-NOURISHED, AND IN NO ACUTE DISTRESS. HEAD:NORMOCEPHALIC, ATRAUMATIC. EYES: PERRLA AND EOMI. ENT: NARES CLEAR,moderate RHINORRHEA OR EPISTAXIS. MUCOUS MEMBRANES MOIST. NECK: SUPPLE. CHEST: CLEAR TO course AUSCULTATION. NO RESPIRATORY DISTRESS. HEART: REGULAR RATE AND RHYTHM. NORMAL PERIPHERAL PULSES. ABDOMEN: SOFT, NONTENDER, NONDISTENDED, NORMAL ACTIVE BOWEL SOUNDS. EXTREMITIES: NORMAL RANGE OF MOTION. NO EDEMA. SKIN: WARM, DRY, NO RASH. NEURO: NO FOCAL DEFICITS. ALERT AND ORIENTED X3. Objective Data Vital Signs Vital Signs: Vital Signs - 24 hr 06/20/22 16:00 06/21/22 00:00 06/21/22 08:00 Temperature 97.8 F 97.3 F L 97.0 F L Pulse Rate 58 L 59 L 55 L Respiratory Rate 16 20 16 Blood Pressure 128/71 136/74 133/70 Pulse Oximetry 97 96 96 Oxygen Delivery Room Air Room Air Room Air Intake/Output Intake/Output: Intake & Output 06/18/22 06/19/22 06/20/22 06/21/22 23:59 23:59 23:59 23:59 Intake Total 2550.00 2860 4420 1000 Output Total 601 282 7952 800 Balance 2275.00 2185 2620 200 Meds/Results Medications: Active Medications Generic Name Dose Route Start Last Admin Trade Name Freq PRN Reason Stop Dose Admin Acetaminophen 650 mg 06/16/22 18:49 06/19/22 10:50 Acetaminophen 325 Mg Tablet PO 650 mg Q4H PRN Administration Mild Pain (1-3) or Fever Hydrocodone Bitart/Acetaminophen 1 tab 06/16/22 18:53 Hydrocodone/Acetaminophen (*Crx) 5-325 Mg Tablet PO QID PRN PAIN RATED 4-6 Albuterol 1.25 mg 06/16/22 18:53 Albuterol Sulfate Neb 1.25 Mg/3 Ml Inh INHALATION Q6HRT PRN Shortness Of Breath Allopurinol 100 mg 06/17/22 09:00 06/21/22 09:05 Allopurinol 100 Mg Tablet PO 100 mg DAILY KADEEM Administration Amlodipine Besylate 10 mg 06/17/22 09:00 06/21/22 09:03 Amlodipine Be
[2022-06-21 16:00] VITALS: BP 117/82; PULSE 62; RESP 16; TEMP 36.4; O2SAT 98
[2022-06-21 16:35] LABS: Glucose Point of Care 289 mg/dl (65-105)
[2022-06-21 20:00] VITALS: PULSE 62; RESP 16; O2SAT 98
[2022-06-21 20:39] LABS: Vancomycin Trough 17.2 ug/mL (10.0-15.0)
--- NOTE | 2022-06-21 20:55 | PC.NURSE ---
Patient's Vancomycin trought 17.2. Pharmacist from [facility] notified. Patient to continue on the same dose and schedule.
[2022-06-21 21:23] LABS: Glucose Point of Care 246 mg/dl (65-105)
--- NOTE | 2022-06-21 21:23 | PHAR ---
VANCO LEVEL = 17.2 WHICH IS WITHIN OUR DESIRED TROUGH OF 15-20. NO CHANGE TO DOSE OR SCHEDULE.
[2022-06-21] MEDS: ACETAMINOPHEN 325 MG TABLET 650 MG PO (21:26)
[2022-06-21 21:27] VITALS: PULSE 66
[2022-06-22] VITALS: BP 132/78; PULSE 66; RESP 18; TEMP 36.6; O2SAT 96
[2022-06-22 07:59] LABS: Glucose Point of Care 177 mg/dl (65-105)
[2022-06-22 08:00] VITALS: BP 138/80; PULSE 96; RESP 14; TEMP 36.3; O2SAT 96
[2022-06-22] MEDS: amLODIPine BESYLATE 5 MG TABLET 10 MG PO (08:59)
[2022-06-22] MEDS: MAGNESIUM OXIDE 400 MG TABLET PO (08:59)
[2022-06-22] MEDS: DEXAMETHASONE SOD PHOS INJ 4 MG/ML VIAL 6 MG IV PUSH (09:00)
[2022-06-22 11:59] LABS: Glucose Point of Care 263 mg/dl (65-105)
--- NOTE | 2022-06-22 13:57 | WPDPN ---
Progress Note: A&P Assessment and Plan (1) Blood bacterial culture positive: Code(s): R78.81 - Bacteremia Status: Acute Assessment and Plan: Positive blood culture and urine cultures IV Vancomycin Spoke ID pharmacist appropriate antibiotic obtain requested recheck BC today Blood cultures positive and growing enterococcus faecalis Spoke with infectious disease Pharmacist today and patient is in need of staying until he is not growing anything once that happens he can be set up with a PICC line and have outpatient IV therapy. Spo once no growth on preliminary we will set up for outpatient IV therapy. (2) COVID-19: Code(s): U07.1 - COVID-19 Status: Acute Assessment and Plan: previously on paxlovid getting IV steroid breathing treatment as indicated oxygen as indicated treat symptoms afebrile continue to be asymptomatic at this time (3) Hypomagnesemia: Code(s): E83.42 - Hypomagnesemia Status: Acute Assessment and Plan: IV mag given Mag 1.7 oral mag started (4) 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 Carpio and he cleared to start Norvasc as pt not willing to start without his permission Ok to take Norvasc Patient continues to take oral Norvasc Subjective Date/time seen: 06/22/22 13:57 Interval history: Once patient preliminary result from culture come back the plan is to discharge him and schedule to have him a picc line placed as a outpatient at [facility] he will have IV Daptomycin for 10 days as a outpatient once daily. is his PCP. If patient does not have preliminarys come back today the plan will be for in the morning. He has a virtual appointment set up with Dr. Mckeon set for tomorrow as he has never seen patient and the plan is to have him follow patient as he is followin Dr. Carpio patients until he comes back. At this time patient is doing well eating and drinking without difficulties and feeling a lot better no symptoms from covid. Exam Narrative: GENERAL:WELL-APPEARING, WELL-NOURISHED, AND IN NO ACUTE DISTRESS. HEAD:NORMOCEPHALIC, ATRAUMATIC. EYES: PERRLA AND EOMI. ENT: NARES CLEAR,moderate RHINORRHEA OR EPISTAXIS. MUCOUS MEMBRANES MOIST. NECK: SUPPLE. CHEST: CLEAR TO course AUSCULTATION. NO RESPIRATORY DISTRESS. HEART: REGULAR RATE AND RHYTHM. NORMAL PERIPHERAL PULSES. ABDOMEN: SOFT, NONTENDER, NONDISTENDED, NORMAL ACTIVE BOWEL SOUNDS. EXTREMITIES: NORMAL RANGE OF MOTION. NO EDEMA. SKIN: WARM, DRY, NO RASH. NEURO: NO FOCAL DEFICITS. ALERT AND ORIENTED X3. Objective Data Vital Signs Vital Signs: Vital Signs - 24 hr 06/21/22 16:00 06/21/22 20:00 06/21/22 21:27 Temperature 97.6 F Pulse Rate 62 62 66 Respiratory Rate 16 16 Blood Pressure 117/82 Pulse Oximetry 98 98 Oxygen Delivery Room Air Room Air 06/22/22 00:00 06/22/22 08:00 Temperature 97.9 F 97.4 F L Pulse Rate 66 96 Respiratory Rate 18 14 Blood Pressure 132/78 138/80 Pulse Oximetry 96 96 Oxygen Delivery Room Air Room Air Intake/Output Intake/Output: Intake & Output 06/19/22 06/20/22 06/21/22 06/22/22 23:59 23:59 23:59 23:59 Intake Total 2860 4420 2827 700 Output Total 675 1800 800 500 Balance 2185 2620 2027 200 Meds/Results Medications: Active Medications Generic Name Dose Route Start Last Admin Trade Name Freq PRN Reason Stop Dose Admin Acetaminophen 650 mg 06/16/22 18:49 06/21/22 21:26 Acetaminophen 325 Mg Tablet PO 650 mg Q4H PRN Administration Mild Pain (1-3) or Fever Hydrocodone Bitart/Acetaminophen 1 tab 06/16/22 18:53 Hydrocodone/Acetaminophen (*Crx) 5-325 Mg Tablet PO QID PRN
[2022-06-22 16:00] VITALS: BP 130/80; PULSE 89; RESP 16; TEMP 36.6; O2SAT 95
[2022-06-22 16:39] LABS: Glucose Point of Care 236 mg/dl (65-105)
[2022-06-22 21:42] LABS: Glucose Point of Care 266 mg/dl (65-105)
[2022-06-23] VITALS: BP 137/61; PULSE 58; RESP 20; TEMP 36.4; O2SAT 96
--- NOTE | 2022-06-23 04:40 | WPDPN ---
Progress Note: A&P Assessment and Plan (1) Blood bacterial culture positive: Code(s): R78.81 - Bacteremia Status: Acute Assessment and Plan: Positive blood culture and urine cultures IV Vancomycin Spoke ID pharmacist appropriate antibiotic obtain requested recheck BC today Blood cultures positive and growing enterococcus faecalis Spoke with infectious disease Pharmacist today and patient is in need of staying until he is not growing anything once that happens he can be set up with a PICC line and have outpatient IV therapy. Spo once no growth on preliminary we will set up for outpatient IV therapy. 06/23/2022 (2) COVID-19: Code(s): U07.1 - COVID-19 Status: Acute Assessment and Plan: previously on paxlovid getting IV steroid breathing treatment as indicated oxygen as indicated treat symptoms afebrile continue to be asymptomatic at this time 06/23/2022 Discontinued dexamethasone (3) Hypomagnesemia: Code(s): E83.42 - Hypomagnesemia Status: Acute Assessment and Plan: IV mag given Mag 1.7 oral mag started (4) 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 Carpio and he cleared to start Norvasc as pt not willing to start without his permission Ok to take Norvasc Patient continues to take oral Norvasc (6) BPH (benign prostatic hyperplasia): Code(s): N40.0 - Benign prostatic hyperplasia without lower urinary tract symptoms Status: Acute Assessment and Plan: continue Flomax (7) GERD (gastroesophageal reflux disease): Code(s): K21.9 - Gastro-esophageal reflux disease without esophagitis Status: Acute Assessment and Plan: started pantoprazole (8) Type 2 diabetes mellitus: Code(s): E11.9 - Type 2 diabetes mellitus without complications Status: Acute Assessment and Plan: a1c 6.7(04/2022) continue blood sugars with Accu-Chek and sliding scale will resume diabetic medication on discharge will continue to monitor Subjective Date/time seen: 06/23/22 04:40 Interval history: patient sitting up in chair he has no complaints at this time, patient slept well overnight is able to tolerate meals is asymptomatic as far as COVID is concerned no shortness of breath. Will discontinue dexamethasone. Patient is concerned about his diabetes medication. According to patient his primary care physician discontinued his diabetic medications due to concerns with interaction with vancomycin. I did inform patient that on discharge he will continue his medication for diabetes he is currently getting our sliding scale. The patient denies SOB, CP, palpitation, extremity numbness, lightheadedness, dizziness, constipation, diarrhea, chills, or fever. Review of Systems Review of Systems: A 14 organ system Review of Systems was performed and pertinent positives included in the HPI, otherwise remaining ROS is negative. Exam Narrative: GENERAL:WELL-APPEARING, WELL-NOURISHED, AND IN NO ACUTE DISTRESS. HEAD:NORMOCEPHALIC, ATRAUMATIC. EYES: PERRLA AND EOMI. ENT: NARES CLEAR,moderate RHINORRHEA OR EPISTAXIS. MUCOUS MEMBRANES MOIST. NECK: SUPPLE. CHEST: CLEAR TO course AUSCULTATION. NO RESPIRATORY DISTRESS. HEART: REGULAR RATE AND RHYTHM. NORMAL PERIPHERAL PULSES. ABDOMEN: SOFT, NONTENDER, NONDISTENDED, NORMAL ACTIVE BOWEL SOUNDS. EXTREMITIES: NORMAL RANGE OF MOTION. NO EDEMA. SKIN: WARM, DRY, NO RASH. NEURO: NO FOCAL DEFICITS. ALERT AND ORIENTED X3. Objective Data Vital Signs Vital Signs: Vital Signs - 24 hr 06/22/22 08:00 06/22/22 16:00 06/23/22 00:00 Temperature 97.4 F L 97.9 F 97.6 F Pulse Ra
[2022-06-23 05:15] LABS: Hematocrit 39.3 % (37.0-46.0); Hemoglobin 13.3 g/dL (12.4-15.3); Mean Corpuscular HGB Conc 33.8 g/dL (32.0-36.0); Mean Corpuscular Hemoglobin 30.6 pg (27.0-31.0); Mean Corpuscular Volume 90.6 fL (78.0-102.0); Platelet Count Result 158 K/mm3 (150-420); Red Blood Count 4.34 M/mm3 (4.70-6.10); Red Cell Distribution Width 12.3 % (11.6-14.4); White Blood Count 16.1 K/mm3 (4.8-10.8)
[2022-06-23 05:29] LABS: INR 1.2
[2022-06-23 05:32] LABS: Alanine Aminotransferase 72 U/L (16-63); Alkaline Phosphatase 138 U/L (46-116); Anion Gap 5 mmol/L (8-16); Aspartate Amino Transferase 36 U/L (15-37); Bilirubin,Total 0.5 mg/dL (0.00-1.00); Blood Urea Nitrogen 19 mg/dL (7-18); Calcium 8.7 mg/dL (8.5-10.1); Carbon Dioxide 30 mmol/L (21-32); Chloride 94 mmol/L (98-108); Estimated CRCL calculation 59 ml/min; Estimated Glomerular Filt Rate > 60; Glucose 280 mg/dL (70-99); Osmolality Calculated 280 mOsm/kg (285-295); Potassium 4.4 mmol/L (3.5-5.1); Sodium 129 mmol/L (136-145); Total Protein 6.4 g/dL (6.4-8.2)
--- NOTE | 2022-06-23 06:22 | PC.NURSE ---
Lab called and said the second set of blood cultures were available. Results faxed to the floor.
[2022-06-23 06:49] LABS: Glucose Point of Care 233 mg/dl (65-105)
[2022-06-23 08:00] VITALS: BP 150/68; PULSE 50; RESP 18; TEMP 36.5; O2SAT 95
[2022-06-23] MEDS: amLODIPine BESYLATE 5 MG TABLET 10 MG PO (08:54)
[2022-06-23] MEDS: MAGNESIUM OXIDE 400 MG TABLET PO (08:54)
[2022-06-23 11:36] LABS: Glucose Point of Care 324 mg/dl (65-105)
[2022-06-23 12:39] LABS: Creatine Kinase 32 U/L (39-308)
[2022-06-23 15:33] LABS: Add Urine Microscopic? YES; Appearance Urine Clear (Clear); Bilirubin Urine Negative (Negative); Blood Urine Negative (Negative); Color Urine Light Yellow (Yellow); Glucose Urine UA 2+ (Negative); Ketones Urine Negative (Negative); Leukocyte Esterase Ur 1+ LEU/UL (Negative); Nitrate Urine Negative (Negative); Protein Urine Negative (Negative); Urobilinogen Urine 0.2 mg/dL (0.2-1.0)
[2022-06-23 15:41] LABS: Glucose Point of Care 186 mg/dl (65-105)
[2022-06-23 15:49] LABS: RBC Urine None seen /hpf (0-2); Squamous Epithelial Cell Urine Rare /hpf (Few)
[2022-06-23 15:50] LABS: Bacteria Urine 1+ /hpf
[2022-06-23 16:00] VITALS: BP 150/63; PULSE 52; RESP 18; TEMP 36.1; O2SAT 97
[2022-06-23 21:09] LABS: Glucose Point of Care 220 mg/dl (65-105)
[2022-06-24] VITALS: BP 138/68; PULSE 50; RESP 18; TEMP 36.5; O2SAT 94
[2022-06-24 05:19] LABS: Hematocrit 38.4 % (37.0-46.0); Hemoglobin 13.2 g/dL (12.4-15.3); Mean Corpuscular HGB Conc 34.4 g/dL (32.0-36.0); Mean Corpuscular Hemoglobin 31.1 pg (27.0-31.0); Mean Corpuscular Volume 90.4 fL (78.0-102.0); Mean Platelet Volume 11.2 fl (8.7-11.0); Platelet Count Result 155 K/mm3 (150-420); Red Blood Count 4.25 M/mm3 (4.70-6.10); Red Cell Distribution Width 12.8 % (11.6-14.4); White Blood Count 11.7 K/mm3 (4.8-10.8)
[2022-06-24 05:36] LABS: Alanine Aminotransferase 74 U/L (16-63); Albumin Level 2.9 g/dL (3.4-5.0); Alkaline Phosphatase 127 U/L (46-116); Anion Gap 6 mmol/L (8-16); Aspartate Amino Transferase 40 U/L (15-37); Bilirubin,Total 0.5 mg/dL (0.00-1.00); Blood Urea Nitrogen 19 mg/dL (7-18); Calcium 8.4 mg/dL (8.5-10.1); Carbon Dioxide 28 mmol/L (21-32); Chloride 96 mmol/L (98-108); Estimated CRCL calculation 62 ml/min; Estimated Glomerular Filt Rate > 60; Glucose 193 mg/dL (70-99); Osmolality Calculated 277 mOsm/kg (285-295); Potassium 4.1 mmol/L (3.5-5.1); Sodium 130 mmol/L (136-145); Total Protein 6.1 g/dL (6.4-8.2)
[2022-06-24 07:32] LABS: Glucose Point of Care 168 mg/dl (65-105)
[2022-06-24 07:57] VITALS: BP 147/75; PULSE 69; RESP 16; TEMP 36.5; O2SAT 95
[2022-06-24] MEDS: MAGNESIUM OXIDE 400 MG TABLET PO (08:06)
[2022-06-24] MEDS: amLODIPine BESYLATE 5 MG TABLET 10 MG PO (08:06)
[2022-06-24] MEDS: NITROFURANTOIN MONOHYD MACROCR 100 MG CAP PO ×2 (10:01→20:17)
[2022-06-24] MEDS: DAPTOmycin 1,000 MG in SODIUM CHLORIDE 0.9% IV 50 ML 100 MG IVPB (10:03)
--- NOTE | 2022-06-24 11:19 | WPDPN ---
Progress Note: A&P Assessment and Plan (1) Blood bacterial culture positive: Code(s): R78.81 - Bacteremia Status: Acute Assessment and Plan: Positive blood culture and urine cultures IV Vancomycin Spoke ID pharmacist appropriate antibiotic obtain requested recheck BC today Blood cultures positive and growing enterococcus faecalis Spoke with infectious disease Pharmacist today and patient is in need of staying until he is not growing anything once that happens he can be set up with a PICC line and have outpatient IV therapy. Spo once no growth on preliminary we will set up for outpatient IV therapy. 06/24/2022 source unknown Repeat blood culture pending patient antibiotics change to daptomycin will do a MRI on Tuesday the pelvis and abdomen (2) COVID-19: Code(s): U07.1 - COVID-19 Status: Acute Assessment and Plan: previously on paxlovid getting IV steroid breathing treatment as indicated oxygen as indicated treat symptoms afebrile continue to be asymptomatic at this time 06/23/2022 Discontinued dexamethasone (3) Hypomagnesemia: Code(s): E83.42 - Hypomagnesemia Status: Acute Assessment and Plan: IV mag given Mag 1.7 oral mag started (4) 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 Carpio and he cleared to start Norvasc as pt not willing to start without his permission Ok to take Norvasc Patient continues to take oral Norvasc (6) BPH (benign prostatic hyperplasia): Code(s): N40.0 - Benign prostatic hyperplasia without lower urinary tract symptoms Status: Acute Assessment and Plan: continue Flomax patient has been refusing Flomax (7) GERD (gastroesophageal reflux disease): Code(s): K21.9 - Gastro-esophageal reflux disease without esophagitis Status: Acute Assessment and Plan: started pantoprazole (8) Type 2 diabetes mellitus: Code(s): E11.9 - Type 2 diabetes mellitus without complications Status: Acute Assessment and Plan: a1c 6.7(04/2022) continue blood sugars with Accu-Chek and sliding scale will resume diabetic medication on discharge will continue to monitor (9) Abnormal urinalysis: Code(s): R82.90 - Unspecified abnormal findings in urine Status: Acute Assessment and Plan: UA with leukocytes and bacteria started Macrobid UA culture pending Subjective Date/time seen: 06/24/22 11:19 Interval history: Received complaints from patient that he had burning with urination UA completed indicate possible urinary tract infection culture pending we will start Macrobid for this patient. patient concerned about his medication patient notes that he has not been receiving his medications from home. After checking orders I informed patient and all his medications were ordered. Nurse called into the room according to nurse and patient patient has been refusing his medications. Patient notes that he has been refusing his medication because his primary care physician informed him to discontinue medications. After further investigation it was determined that patient medication was discontinued due to upset stomach. I informed patient that he has the right to refuse this medication but he should really take his medication. I ensured patient that all medications are checked before admission for interaction with other medications and that is safe for him to take his medications. Patient agrees to take his medication he did request that the Celebrex be discontinued and he knows that he no longer takes Xarelto. The patient denies SOB, CP, palpitation, extremity numb
[2022-06-24 11:46] LABS: Glucose Point of Care 219 mg/dl (65-105)
[2022-06-24] MEDS: PHENAZOPYRIDINE HCL 100 MG TABLET 200 MG PO ×2 (11:59→17:03)
[2022-06-24 16:00] VITALS: BP 150/92; PULSE 75; RESP 16; TEMP 36.1; O2SAT 98
[2022-06-24 16:38] LABS: Glucose Point of Care 200 mg/dl (65-105)
[2022-06-24 19:47] VITALS: PULSE 75; RESP 16; O2SAT 98
[2022-06-24 20:16] VITALS: PULSE 77
[2022-06-24] MEDS: bisoproloL fumarate 5 MG TABLET PO (20:16)
[2022-06-24] MEDS: LOSARTAN POTASSIUM 50 MG TABLET 100 MG PO (20:17)
[2022-06-24 20:26] LABS: Glucose Point of Care 251 mg/dl (65-105)
[2022-06-25] VITALS: BP 138/76; PULSE 77; RESP 18; TEMP 36.6; O2SAT 93
[2022-06-25 07:44] LABS: Glucose Point of Care 176 mg/dl (65-105)
[2022-06-25 08:00] VITALS: BP 136/70; PULSE 77; RESP 16; TEMP 36.2; O2SAT 96
[2022-06-25] MEDS: amLODIPine BESYLATE 5 MG TABLET 10 MG PO (08:09)
[2022-06-25] MEDS: TAMSULOSIN HCL 0.4 MG CAPSULE PO (08:09)
[2022-06-25] MEDS: MAGNESIUM OXIDE 400 MG TABLET PO (08:09)
[2022-06-25] MEDS: NITROFURANTOIN MONOHYD MACROCR 100 MG CAP PO ×2 (08:10→20:37)
[2022-06-25] MEDS: PANTOPRAZOLE 40 MG TABLET PO (08:10)
[2022-06-25] MEDS: allopurinoL 100 MG TABLET PO (08:10)
[2022-06-25] MEDS: PHENAZOPYRIDINE HCL 100 MG TABLET 200 MG PO ×3 (08:11→17:40)
[2022-06-25 08:16] LABS: Hematocrit 43.3 % (37.0-46.0); Hemoglobin 14.3 g/dL (12.4-15.3); Mean Corpuscular Hemoglobin 30.4 pg (27.0-31.0); Mean Corpuscular Volume 92.1 fL (78.0-102.0); Mean Platelet Volume 10.7 fl (8.7-11.0); Platelet Count Result 192 K/mm3 (150-420); Red Cell Distribution Width 12.7 % (11.6-14.4); White Blood Count 12.2 K/mm3 (4.8-10.8)
[2022-06-25 08:31] LABS: Alanine Aminotransferase 77 U/L (16-63); Albumin Level 3.5 g/dL (3.4-5.0); Alkaline Phosphatase 144 U/L (46-116); Anion Gap 5 mmol/L (8-16); Aspartate Amino Transferase 46 U/L (15-37); Bilirubin,Total 0.9 mg/dL (0.00-1.00); Blood Urea Nitrogen 19 mg/dL (7-18); Calcium 8.9 mg/dL (8.5-10.1); Carbon Dioxide 30 mmol/L (21-32); Chloride 94 mmol/L (98-108); Estimated CRCL calculation 60 ml/min; Estimated Glomerular Filt Rate > 60; Glucose 175 mg/dL (70-99); Osmolality Calculated 274 mOsm/kg (285-295); Potassium 4.4 mmol/L (3.5-5.1); Sodium 129 mmol/L (136-145); Total Protein 7.3 g/dL (6.4-8.2); Vancomycin Trough 10.1 ug/mL (10.0-15.0)
[2022-06-25] MEDS: DAPTOmycin 1,000 MG in SODIUM CHLORIDE 0.9% IV 50 ML 100 MG IVPB (09:53)
--- NOTE | 2022-06-25 10:11 | WPDPN ---
Progress Note: A&P Assessment and Plan (1) Blood bacterial culture positive: Code(s): R78.81 - Bacteremia Status: Acute Assessment and Plan: Positive blood culture and urine cultures IV Vancomycin Spoke ID pharmacist appropriate antibiotic obtain requested recheck BC today Blood cultures positive and growing enterococcus faecalis Spoke with infectious disease Pharmacist today and patient is in need of staying until he is not growing anything once that happens he can be set up with a PICC line and have outpatient IV therapy. Spo once no growth on preliminary we will set up for outpatient IV therapy. 06/24/2022 source unknown Repeat blood culture pending patient antibiotics change to daptomycin will do a MRI on Tuesday the pelvis and abdomen 2nd bottle of blood culture with a growth of enterococcus faecalis (2) COVID-19: Code(s): U07.1 - COVID-19 Status: Acute Assessment and Plan: previously on paxlovid getting IV steroid breathing treatment as indicated oxygen as indicated treat symptoms afebrile continue to be asymptomatic at this time 06/23/2022 Discontinued dexamethasone patient off isolation (3) Hypomagnesemia: Code(s): E83.42 - Hypomagnesemia Status: Acute Assessment and Plan: IV mag given Mag 1.7 oral mag started (4) 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 Carpio and he cleared to start Norvasc as pt not willing to start without his permission Ok to take Norvasc Patient continues to take oral Norvasc (6) BPH (benign prostatic hyperplasia): Code(s): N40.0 - Benign prostatic hyperplasia without lower urinary tract symptoms Status: Acute Assessment and Plan: continue Flomax patient has been refusing Flomax is currently accepting medication (7) GERD (gastroesophageal reflux disease): Code(s): K21.9 - Gastro-esophageal reflux disease without esophagitis Status: Acute Assessment and Plan: started pantoprazole (8) Type 2 diabetes mellitus: Code(s): E11.9 - Type 2 diabetes mellitus without complications Status: Acute Assessment and Plan: a1c 6.7(04/2022) continue blood sugars with Accu-Chek and sliding scale will resume diabetic medication on discharge will continue to monitor (9) Abnormal urinalysis: Code(s): R82.90 - Unspecified abnormal findings in urine Status: Acute Assessment and Plan: UA with leukocytes and bacteria started Macrobid UA culture no growth will continue antibiotics Subjective Date/time seen: 06/25/22 10:11 Interval history: patient notes that he did not sleep well overnight but he refused a sleep aid because he did not want to urinate on herself overnight. patient also requesting infectious disease pharmacist information such as his Credentials telephone and name. patient informed that he would not be able to consult Infectious Disease after discharge. defer to nursing staff. The patient denies SOB, CP, palpitation, extremity numbness, lightheadedness, dizziness, constipation, diarrhea, chills, or fever. also gave patient all printed blood culture and UA results Review of Systems Review of Systems: All systems reviewed & are unremarkable except as noted in HPI and below Exam Narrative: GENERAL:WELL-APPEARING, WELL-NOURISHED, AND IN NO ACUTE DISTRESS. HEAD:NORMOCEPHALIC, ATRAUMATIC. EYES: PERRLA AND EOMI. ENT: NARES CLEAR,moderate RHINORRHEA OR EPISTAXIS. MUCOUS MEMBRANES MOIST. NECK: SUPPLE. CHEST: CLEAR TO course AUSCULTATION. NO RESPIRATORY DISTRESS. HEART: REGULAR RATE AND RHYTHM. NORM
[2022-06-25 11:36] LABS: Glucose Point of Care 236 mg/dl (65-105)
[2022-06-25 16:00] VITALS: BP 139/63; PULSE 60; RESP 16; TEMP 36.4; O2SAT 96
[2022-06-25 16:35] LABS: Glucose Point of Care 168 mg/dl (65-105)
[2022-06-25 20:26] LABS: Glucose Point of Care 347 mg/dl (65-105)
[2022-06-25] MEDS: LOSARTAN POTASSIUM 50 MG TABLET 100 MG PO (20:37)
[2022-06-25 20:47] VITALS: PULSE 61
[2022-06-25] MEDS: bisoproloL fumarate 5 MG TABLET PO (20:47)
[2022-06-26] VITALS: BP 124/60; PULSE 61; RESP 18; TEMP 36.2; O2SAT 96
[2022-06-26 07:45] VITALS: BP 141/75; PULSE 63; RESP 18; TEMP 36.6; O2SAT 94
[2022-06-26] MEDS: allopurinoL 100 MG TABLET PO (09:09)
[2022-06-26] MEDS: PANTOPRAZOLE 40 MG TABLET PO (09:09)
[2022-06-26] MEDS: TAMSULOSIN HCL 0.4 MG CAPSULE PO (09:09)
[2022-06-26] MEDS: GLIMEPIRIDE 1 MG TABLET 3 MG PO (09:09)
[2022-06-26] MEDS: PHENAZOPYRIDINE HCL 100 MG TABLET 200 MG PO ×3 (09:10→16:54)
[2022-06-26] MEDS: amLODIPine BESYLATE 5 MG TABLET 10 MG PO (09:10)
[2022-06-26] MEDS: NITROFURANTOIN MONOHYD MACROCR 100 MG CAP PO ×2 (09:10→20:23)
[2022-06-26] MEDS: MAGNESIUM OXIDE 400 MG TABLET PO (09:10)
[2022-06-26 09:14] LABS: Glucose Point of Care 322 mg/dl (65-105)
[2022-06-26] MEDS: ACETAMINOPHEN 325 MG TABLET 650 MG PO (09:15)
[2022-06-26] MEDS: DAPTOmycin 1,000 MG in SODIUM CHLORIDE 0.9% IV 50 ML 100 MG IVPB (09:18)
--- NOTE | 2022-06-26 10:09 | P.PN_ITS ---
Progress Note: A&P Assessment and Plan (1) Blood bacterial culture positive: Code(s): R78.81 - Bacteremia Status: Acute Assessment and Plan: Positive blood culture and urine cultures IV Vancomycin Spoke ID pharmacist appropriate antibiotic obtain requested recheck BC today Blood cultures positive and growing enterococcus faecalis Spoke with infectious disease Pharmacist today and patient is in need of staying until he is not growing anything once that happens he can be set up with a PICC line and have outpatient IV therapy. Spo once no growth on preliminary we will set up for outpatient IV therapy. 06/24/2022 * source unknown * Repeat blood culture pending patient antibiotics change to daptomycin * will do a MRI on Tuesday the pelvis and abdomen * 2nd bottle of blood culture with a growth of enterococcus faecalis * 3rd bottle with a growth of Gram-positive cocci chains in 1 bottle (2) COVID-19: Code(s): U07.1 - COVID-19 Status: Acute Assessment and Plan: * previously on paxlovid * getting IV steroid * breathing treatment as indicated * oxygen as indicated treat symptoms * afebrile * continue to be asymptomatic at this time 06/23/2022 * Discontinued dexamethasone * patient off isolation (3) Hypomagnesemia: Code(s): E83.42 - Hypomagnesemia Status: Acute Assessment and Plan: IV mag given Mag 1.7 oral mag started (4) 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 Carpio and he cleared to start Norvasc as pt not willing to start without his permission * Ok to take Norvasc * Patient continues to take oral Norvasc (6) BPH (benign prostatic hyperplasia): Code(s): N40.0 - Benign prostatic hyperplasia without lower urinary tract symptoms Status: Acute Assessment and Plan: * continue Flomax patient has been refusing Flomax is currently accepting medication (7) GERD (gastroesophageal reflux disease): Code(s): K21.9 - Gastro-esophageal reflux disease without esophagitis Status: Acute Assessment and Plan: * started pantoprazole (8) Type 2 diabetes mellitus: Code(s): E11.9 - Type 2 diabetes mellitus without complications Status: Acute Assessment and Plan: * a1c 6.7(04/2022) * continue blood sugars with Accu-Chek and sliding scale * will resume diabetic medication on discharge * will continue to monitor * blood sugar elevated restarted glipizide (9) Abnormal urinalysis: Code(s): R82.90 - Unspecified abnormal findings in urine Status: Acute Assessment and Plan: * UA with leukocytes and bacteria * started Macrobid * UA culture no growth will continue antibiotics Subjective Date/time seen: 06/26/22 10:09 Interval history: patient has no complaints. Informed patient that if his blood culture comes back positive x3 he will possibly need to transfer to outside hospital with higher level of care. patient prefer [facility] where all his care is completed. I informed patient that we will attempt to place him at [facility] will also attempt other hospitals. He will need to go to the [address] [place] [address] with Infectious Disease. Patient notes that he knows doctors at [facility] and
--- NOTE | 2022-06-26 10:09 | WPDPN ---
Progress Note: A&P Assessment and Plan (1) Blood bacterial culture positive: Code(s): R78.81 - Bacteremia Status: Acute Assessment and Plan: Positive blood culture and urine cultures IV Vancomycin Spoke ID pharmacist appropriate antibiotic obtain requested recheck BC today Blood cultures positive and growing enterococcus faecalis Spoke with infectious disease Pharmacist today and patient is in need of staying until he is not growing anything once that happens he can be set up with a PICC line and have outpatient IV therapy. Spo once no growth on preliminary we will set up for outpatient IV therapy. 06/24/2022 source unknown Repeat blood culture pending patient antibiotics change to daptomycin will do a MRI on Tuesday the pelvis and abdomen 2nd bottle of blood culture with a growth of enterococcus faecalis 3rd bottle with a growth of Gram-positive cocci chains in 1 bottle (2) COVID-19: Code(s): U07.1 - COVID-19 Status: Acute Assessment and Plan: previously on paxlovid getting IV steroid breathing treatment as indicated oxygen as indicated treat symptoms afebrile continue to be asymptomatic at this time 06/23/2022 Discontinued dexamethasone patient off isolation (3) Hypomagnesemia: Code(s): E83.42 - Hypomagnesemia Status: Acute Assessment and Plan: IV mag given Mag 1.7 oral mag started (4) 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 Carpio and he cleared to start Norvasc as pt not willing to start without his permission Ok to take Norvasc Patient continues to take oral Norvasc (6) BPH (benign prostatic hyperplasia): Code(s): N40.0 - Benign prostatic hyperplasia without lower urinary tract symptoms Status: Acute Assessment and Plan: continue Flomax patient has been refusing Flomax is currently accepting medication (7) GERD (gastroesophageal reflux disease): Code(s): K21.9 - Gastro-esophageal reflux disease without esophagitis Status: Acute Assessment and Plan: started pantoprazole (8) Type 2 diabetes mellitus: Code(s): E11.9 - Type 2 diabetes mellitus without complications Status: Acute Assessment and Plan: a1c 6.7(04/2022) continue blood sugars with Accu-Chek and sliding scale will resume diabetic medication on discharge will continue to monitor blood sugar elevated restarted glipizide (9) Abnormal urinalysis: Code(s): R82.90 - Unspecified abnormal findings in urine Status: Acute Assessment and Plan: UA with leukocytes and bacteria started Macrobid UA culture no growth will continue antibiotics Subjective Date/time seen: 06/26/22 10:09 Interval history: patient has no complaints. Informed patient that if his blood culture comes back positive x3 he will possibly need to transfer to outside hospital with higher level of care. patient prefer [facility] where all his care is completed. I informed patient that we will attempt to place him at [facility] will also attempt other hospitals. He will need to go to the [address] [place] [address] with Infectious Disease. Patient notes that he knows doctors at [facility] and will see if they can place him if need be. The patient denies SOB, CP, palpitation, extremity numbness, lightheadedness, dizziness, constipation, diarrhea, chills, or fever. Awaiting MRI of the pelvis. Patient denies any chills or fevers, nausea vomiting. patient notes that his urinary burning has improved his flow has also improved with use of his Flomax. Exam Narrative: GENERAL:WELL-APPEARING, WELL-NOURISHED, AND IN
[2022-06-26 11:54] LABS: Glucose Point of Care 256 mg/dl (65-105)
[2022-06-26 16:00] VITALS: BP 112/57; PULSE 56; RESP 18; TEMP 36.6; O2SAT 97
[2022-06-26 16:59] LABS: Glucose Point of Care 169 mg/dl (65-105)
[2022-06-26 20:00] VITALS: PULSE 66; RESP 18; O2SAT 97
[2022-06-26] MEDS: LOSARTAN POTASSIUM 50 MG TABLET 100 MG PO (20:22)
[2022-06-26 20:23] VITALS: PULSE 66
[2022-06-26] MEDS: bisoproloL fumarate 5 MG TABLET PO (20:23)
[2022-06-26 20:28] LABS: Glucose Point of Care 306 mg/dl (65-105)
[2022-06-27] VITALS: BP 128/63; PULSE 66; RESP 18; TEMP 36.7; O2SAT 99
[2022-06-27 05:43] LABS: Hematocrit 36.5 % (37.0-46.0); Hemoglobin 12.2 g/dL (12.4-15.3); Mean Corpuscular HGB Conc 33.4 g/dL (32.0-36.0); Mean Corpuscular Hemoglobin 30.9 pg (27.0-31.0); Mean Corpuscular Volume 92.4 fL (78.0-102.0); Mean Platelet Volume 10.9 fl (8.7-11.0); Platelet Count Result 144 K/mm3 (150-420); Red Blood Count 3.95 M/mm3 (4.70-6.10); Red Cell Distribution Width 12.6 % (11.6-14.4); White Blood Count 9.1 K/mm3 (4.8-10.8)
[2022-06-27 06:19] LABS: Alanine Aminotransferase 47 U/L (16-63); Albumin Level 2.9 g/dL (3.4-5.0); Alkaline Phosphatase 146 U/L (46-116); Anion Gap 7 mmol/L (8-16); Aspartate Amino Transferase 23 U/L (15-37); Bilirubin,Total 0.5 mg/dL (0.00-1.00); Blood Urea Nitrogen 16 mg/dL (7-18); Calcium 8.1 mg/dL (8.5-10.1); Carbon Dioxide 26 mmol/L (21-32); Chloride 98 mmol/L (98-108); Estimated CRCL calculation 64 ml/min; Estimated Glomerular Filt Rate > 60; Glucose 189 mg/dL (70-99); Osmolality Calculated 278 mOsm/kg (285-295); Potassium 4.4 mmol/L (3.5-5.1); Sodium 131 mmol/L (136-145); Total Protein 6.2 g/dL (6.4-8.2)
[2022-06-27 07:50] VITALS: BP 116/59; PULSE 52; RESP 16; TEMP 36.6; O2SAT 95
[2022-06-27 07:52] LABS: Glucose Point of Care 156 mg/dl (65-105)
[2022-06-27] MEDS: PANTOPRAZOLE 40 MG TABLET PO (09:35)
[2022-06-27] MEDS: allopurinoL 100 MG TABLET PO (09:35)
[2022-06-27] MEDS: amLODIPine BESYLATE 5 MG TABLET 10 MG PO (09:35)
[2022-06-27] MEDS: PHENAZOPYRIDINE HCL 100 MG TABLET 200 MG PO ×3 (09:35→16:53)
[2022-06-27] MEDS: TAMSULOSIN HCL 0.4 MG CAPSULE PO (09:35)
[2022-06-27] MEDS: MAGNESIUM OXIDE 400 MG TABLET PO (09:35)
[2022-06-27] MEDS: NITROFURANTOIN MONOHYD MACROCR 100 MG CAP PO ×2 (09:35→20:23)
[2022-06-27] MEDS: GLIMEPIRIDE 1 MG TABLET 3 MG PO (09:35)
[2022-06-27 10:05] LABS: Lactic Acid Reflex 1.8 mmol/L (0.4-2.0)
[2022-06-27] MEDS: DAPTOmycin 1,000 MG in SODIUM CHLORIDE 0.9% IV 50 ML 100 MG IVPB (10:36)
--- NOTE | 2022-06-27 11:02 | P.PN_ITS ---
Progress Note: A&P Assessment and Plan (1) Blood bacterial culture positive: Code(s): R78.81 - Bacteremia Status: Acute Assessment and Plan: Positive blood culture and urine cultures IV Vancomycin Spoke ID pharmacist appropriate antibiotic obtain requested recheck BC today Blood cultures positive and growing enterococcus faecalis Spoke with infectious disease Pharmacist today and patient is in need of staying until he is not growing anything once that happens he can be set up with a PICC line and have outpatient IV therapy. Spo once no growth on preliminary we will set up for outpatient IV therapy. 06/24/2022 * source unknown * Repeat blood culture pending patient antibiotics change to daptomycin * will do a MRI on Tuesday the pelvis and abdomen * 2nd bottle of blood culture with a growth of enterococcus faecalis * 3rd bottle with a growth of enterococcus faecalis * WBCs within normal limits lactic acid within normal limits * MRI of the pelvis no new findings MRI of the pelvis no new findings * echo pending (2) COVID-19: Code(s): U07.1 - COVID-19 Status: Acute Assessment and Plan: * previously on paxlovid * getting IV steroid * breathing treatment as indicated * oxygen as indicated treat symptoms * afebrile * continue to be asymptomatic at this time 06/23/2022 * Discontinued dexamethasone * patient off isolation (3) Hypomagnesemia: Code(s): E83.42 - Hypomagnesemia Status: Acute Assessment and Plan: IV mag given Mag 1.7 oral mag started (4) 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 Carpio and he cleared to start Norvasc as pt not willing to start without his permission * Ok to take Norvasc * Patient continues to take oral Norvasc (6) BPH (benign prostatic hyperplasia): Code(s): N40.0 - Benign prostatic hyperplasia without lower urinary tract symptoms Status: Acute Assessment and Plan: * continue Flomax patient has been refusing Flomax is currently accepting medication (7) GERD (gastroesophageal reflux disease): Code(s): K21.9 - Gastro-esophageal reflux disease without esophagitis Status: Acute Assessment and Plan: * started pantoprazole (8) Type 2 diabetes mellitus: Code(s): E11.9 - Type 2 diabetes mellitus without complications Status: Acute Assessment and Plan: * a1c 6.7(04/2022) * continue blood sugars with Accu-Chek and sliding scale * will resume diabetic medication on discharge * will continue to monitor * blood sugar elevated restarted glipizide (9) Abnormal urinalysis: Code(s): R82.90 - Unspecified abnormal findings in urine Status: Acute Assessment and Plan: * UA with leukocytes and bacteria * started Macrobid * UA culture no growth will continue antibiotics Subjective Date/time seen: 06/27/22 11:02 Interval history: patient has no complaints. Informed patient that if his blood culture comes back positive x3 he will possibly need to transfer to outside hospital with higher level of care. patient prefer [facility] where all his care is completed. I informed patient that we will attempt to place him at [facility] will also attempt o
--- NOTE | 2022-06-27 11:02 | WPDPN ---
Progress Note: A&P Assessment and Plan (1) Blood bacterial culture positive: Code(s): R78.81 - Bacteremia Status: Acute Assessment and Plan: Positive blood culture and urine cultures IV Vancomycin Spoke ID pharmacist appropriate antibiotic obtain requested recheck BC today Blood cultures positive and growing enterococcus faecalis Spoke with infectious disease Pharmacist today and patient is in need of staying until he is not growing anything once that happens he can be set up with a PICC line and have outpatient IV therapy. Spo once no growth on preliminary we will set up for outpatient IV therapy. 06/24/2022 source unknown Repeat blood culture pending patient antibiotics change to daptomycin will do a MRI on Tuesday the pelvis and abdomen 2nd bottle of blood culture with a growth of enterococcus faecalis 3rd bottle with a growth of enterococcus faecalis WBCs within normal limits lactic acid within normal limits MRI of the pelvis no new findings MRI of the pelvis no new findings echo pending (2) COVID-19: Code(s): U07.1 - COVID-19 Status: Acute Assessment and Plan: previously on paxlovid getting IV steroid breathing treatment as indicated oxygen as indicated treat symptoms afebrile continue to be asymptomatic at this time 06/23/2022 Discontinued dexamethasone patient off isolation (3) Hypomagnesemia: Code(s): E83.42 - Hypomagnesemia Status: Acute Assessment and Plan: IV mag given Mag 1.7 oral mag started (4) 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 Carpio and he cleared to start Norvasc as pt not willing to start without his permission Ok to take Norvasc Patient continues to take oral Norvasc (6) BPH (benign prostatic hyperplasia): Code(s): N40.0 - Benign prostatic hyperplasia without lower urinary tract symptoms Status: Acute Assessment and Plan: continue Flomax patient has been refusing Flomax is currently accepting medication (7) GERD (gastroesophageal reflux disease): Code(s): K21.9 - Gastro-esophageal reflux disease without esophagitis Status: Acute Assessment and Plan: started pantoprazole (8) Type 2 diabetes mellitus: Code(s): E11.9 - Type 2 diabetes mellitus without complications Status: Acute Assessment and Plan: a1c 6.7(04/2022) continue blood sugars with Accu-Chek and sliding scale will resume diabetic medication on discharge will continue to monitor blood sugar elevated restarted glipizide (9) Abnormal urinalysis: Code(s): R82.90 - Unspecified abnormal findings in urine Status: Acute Assessment and Plan: UA with leukocytes and bacteria started Macrobid UA culture no growth will continue antibiotics Subjective Date/time seen: 06/27/22 11:02 Interval history: patient has no complaints. Informed patient that if his blood culture comes back positive x3 he will possibly need to transfer to outside hospital with higher level of care. patient prefer [facility] where all his care is completed. I informed patient that we will attempt to place him at [facility] will also attempt other hospitals. He will need to go to the [address] [place] [address] with Infectious Disease. Patient notes that he knows doctors at [facility] and will see if they can place him if need be. The patient denies SOB, CP, palpitation, extremity numbness, lightheadedness, dizziness, constipation, diarrhea, chills, or fever. attempting to place patient at [facility] awaiting call Review of Systems Review of Systems: All systems reviewed & are unrem
[2022-06-27 11:10] LABS: Erythrocyte Sedimentation Rate 27 mm/hr (0-20)
[2022-06-27 12:02] LABS: Glucose Point of Care 153 mg/dl (65-105)
--- NOTE | 2022-06-27 12:17 | PC.NURSE ---
Spoke with [facility] transfer line, gave information on patient.
[2022-06-27 16:00] VITALS: BP 106/66; PULSE 55; RESP 16; TEMP 36.8; O2SAT 95
[2022-06-27] MEDS: AMPICILLIN 2 GM/NS 100 ML 2 GM/100 ML BAG IVPB ×3 (16:15→23:44)
[2022-06-27 17:00] LABS: Glucose Point of Care 172 mg/dl (65-105)
[2022-06-27 20:23] VITALS: PULSE 74
[2022-06-27] MEDS: bisoproloL fumarate 5 MG TABLET PO (20:23)
[2022-06-27] MEDS: LOSARTAN POTASSIUM 50 MG TABLET 100 MG PO (20:24)
--- NOTE | 2022-06-27 23:32 | PC.NURSE ---
Sudha from [facility] transfer team called for update on patient. Report given. Per Sudha they are hoping for a bed to be available in the morning.
[2022-06-27 23:56] LABS: Glucose Point of Care 249 mg/dl (65-105)
[2022-06-28] VITALS: BP 113/63; PULSE 60; RESP 18; TEMP 36.7; O2SAT 94
[2022-06-28] MEDS: AMPICILLIN 2 GM/NS 100 ML 2 GM/100 ML BAG IVPB ×5 (04:08→20:59)
[2022-06-28 07:24] LABS: Glucose Point of Care 224 mg/dl (65-105)
[2022-06-28 08:00] VITALS: BP 122/81; PULSE 67; RESP 18; TEMP 36.6; O2SAT 95
[2022-06-28] MEDS: GLIMEPIRIDE 1 MG TABLET 3 MG PO (08:12)
[2022-06-28] MEDS: amLODIPine BESYLATE 5 MG TABLET 10 MG PO (08:14)
[2022-06-28] MEDS: MAGNESIUM OXIDE 400 MG TABLET PO (08:14)
[2022-06-28] MEDS: TAMSULOSIN HCL 0.4 MG CAPSULE PO (08:14)
[2022-06-28] MEDS: allopurinoL 100 MG TABLET PO (08:15)
[2022-06-28] MEDS: PANTOPRAZOLE 40 MG TABLET PO (08:15)
[2022-06-28] MEDS: NITROFURANTOIN MONOHYD MACROCR 100 MG CAP PO ×2 (08:15→21:00)
--- NOTE | 2022-06-28 08:54 | P.DS_ITS ---
DS: Admitting Diagnosis Discharge Date this is a progress note patient did not discharge Admitting Diagnosis bacteriemia DS: Discharge Diagnosis Discharge Diagnosis (1) Blood bacterial culture positive: Code(s): R78.81 - Bacteremia Status: Acute Assessment and Plan: Positive blood culture and urine cultures IV Vancomycin Spoke ID pharmacist appropriate antibiotic obtain requested recheck BC today Blood cultures positive and growing enterococcus faecalis Spoke with infectious disease Pharmacist today and patient is in need of staying until he is not growing anything once that happens he can be set up with a PICC line and have outpatient IV therapy. Spo once no growth on preliminary we will set up for outpatient IV therapy. 06/24/2022 * source unknown * Repeat blood culture pending patient antibiotics change to daptomycin * will do a MRI on Tuesday the pelvis and abdomen * 2nd bottle of blood culture with a growth of enterococcus faecalis * 3rd bottle with a growth of enterococcus faecalis * WBCs within normal limits lactic acid within normal limits * MRI of the pelvis no new findings MRI of the pelvis no new findings * echo pending (2) COVID-19: Code(s): U07.1 - COVID-19 Status: Acute Assessment and Plan: * previously on paxlovid * getting IV steroid * breathing treatment as indicated * oxygen as indicated treat symptoms * afebrile * continue to be asymptomatic at this time 06/23/2022 * Discontinued dexamethasone * patient off isolation (3) Hypomagnesemia: Code(s): E83.42 - Hypomagnesemia Status: Acute Assessment and Plan: IV mag given Mag 1.7 oral mag started (4) 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 Carpio and he cleared to start Norvasc as pt not willing to start without his permission * Ok to take Norvasc * Patient continues to take oral Norvasc (6) BPH (benign prostatic hyperplasia): Code(s): N40.0 - Benign prostatic hyperplasia without lower urinary tract symptoms Status: Acute Assessment and Plan: * continue Flomax patient has been refusing Flomax is currently accepting medication (7) GERD (gastroesophageal reflux disease): Code(s): K21.9 - Gastro-esophageal reflux disease without esophagitis Status: Acute Assessment and Plan: * started pantoprazole (8) Type 2 diabetes mellitus: Code(s): E11.9 - Type 2 diabetes mellitus without complications Status: Acute Assessment and Plan: * a1c 6.7(04/2022) * continue blood sugars with Accu-Chek and sliding scale * will resume diabetic medication on discharge * will continue to monitor * blood sugar elevated restarted glipizide (9) Abnormal urinalysis: Code(s): R82.90 - Unspecified abnormal findings in urine Status: Acute Assessment and Plan: * UA with leukocytes and bacteria * started Macrobid * UA culture no growth will continue antibiotics DS: Summary Hospital Course Reason for hospitalization: bacteriemia Hospital Course: 82-year-old male has been seen at his primary care physician office for UTI 2 .? He recently had scraping of his bladder for bladder cancer and had indwell
--- NOTE | 2022-06-28 08:54 | PM.DS ---
DS: Admitting Diagnosis Discharge Date this is a progress note patient did not discharge Admitting Diagnosis bacteriemia DS: Discharge Diagnosis Discharge Diagnosis (1) Blood bacterial culture positive: Code(s): R78.81 - Bacteremia Status: Acute Assessment and Plan: Positive blood culture and urine cultures IV Vancomycin Spoke ID pharmacist appropriate antibiotic obtain requested recheck BC today Blood cultures positive and growing enterococcus faecalis Spoke with infectious disease Pharmacist today and patient is in need of staying until he is not growing anything once that happens he can be set up with a PICC line and have outpatient IV therapy. Spo once no growth on preliminary we will set up for outpatient IV therapy. 06/24/2022 source unknown Repeat blood culture pending patient antibiotics change to daptomycin will do a MRI on Tuesday the pelvis and abdomen 2nd bottle of blood culture with a growth of enterococcus faecalis 3rd bottle with a growth of enterococcus faecalis WBCs within normal limits lactic acid within normal limits MRI of the pelvis no new findings MRI of the pelvis no new findings echo pending (2) COVID-19: Code(s): U07.1 - COVID-19 Status: Acute Assessment and Plan: previously on paxlovid getting IV steroid breathing treatment as indicated oxygen as indicated treat symptoms afebrile continue to be asymptomatic at this time 06/23/2022 Discontinued dexamethasone patient off isolation (3) Hypomagnesemia: Code(s): E83.42 - Hypomagnesemia Status: Acute Assessment and Plan: IV mag given Mag 1.7 oral mag started (4) 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 Carpio and he cleared to start Norvasc as pt not willing to start without his permission Ok to take Norvasc Patient continues to take oral Norvasc (6) BPH (benign prostatic hyperplasia): Code(s): N40.0 - Benign prostatic hyperplasia without lower urinary tract symptoms Status: Acute Assessment and Plan: continue Flomax patient has been refusing Flomax is currently accepting medication (7) GERD (gastroesophageal reflux disease): Code(s): K21.9 - Gastro-esophageal reflux disease without esophagitis Status: Acute Assessment and Plan: started pantoprazole (8) Type 2 diabetes mellitus: Code(s): E11.9 - Type 2 diabetes mellitus without complications Status: Acute Assessment and Plan: a1c 6.7(04/2022) continue blood sugars with Accu-Chek and sliding scale will resume diabetic medication on discharge will continue to monitor blood sugar elevated restarted glipizide (9) Abnormal urinalysis: Code(s): R82.90 - Unspecified abnormal findings in urine Status: Acute Assessment and Plan: UA with leukocytes and bacteria started Macrobid UA culture no growth will continue antibiotics DS: Summary Hospital Course Reason for hospitalization: bacteriemia Hospital Course: 82-year-old male has been seen at his primary care physician office for UTI 2 .? He recently had scraping of his bladder for bladder cancer and had indwelling catheter.? The catheter was discontinued and his urinalysis showed evidence of UTI patient was started on IM Rocephin daily as an outpatient.? patient developed cough dizziness and low blood pressure.? afterwards he tested positive for COVID.? He was scheduled to get remdesivir but then his blood culture came back with positive Enterococcus faecalis.? Dr. Carpio, his pcp called the ER MD and requested that the patient be admitted for intravenous
--- NOTE | 2022-06-28 11:34 | PC.NURSE ---
[facility] updated on vital signs and need for bed, will call when bed available
[2022-06-28 11:47] LABS: Glucose Point of Care 188 mg/dl (65-105)
[2022-06-28 16:00] VITALS: BP 127/52; PULSE 56; RESP 16; TEMP 36.6; O2SAT 96
[2022-06-28 17:01] LABS: Glucose Point of Care 217 mg/dl (65-105)
--- NOTE | 2022-06-28 17:19 | PC.NURSE ---
1615 Patient up in chair talking to his daughter on the phone. Alert and oriented x3. Able to voice needs. Pleasant and cooperative. IV site to left wrist clean, dry, no drainage. IV flushed without difficulty. Amp[place]an infused without difficulty. Patient denies pain. Call light and belongings within reach.
--- NOTE | 2022-06-28 17:23 | PC.NURSE ---
Patient up in chair eating supper. Denies pain or distress. Bedside glucose result 217, sliding scale insulin given per MD orders. Call light and belongings within reach.
[2022-06-28 20:10] LABS: Glucose Point of Care 214 mg/dl (65-105)
[2022-06-28 21:00] VITALS: PULSE 68
[2022-06-28] MEDS: bisoproloL fumarate 5 MG TABLET PO (21:00)
[2022-06-28] MEDS: LOSARTAN POTASSIUM 50 MG TABLET 100 MG PO (21:00)
[2022-06-29] VITALS: BP 109/49; PULSE 68; RESP 18; TEMP 36.9
[2022-06-29] MEDS: AMPICILLIN 2 GM/NS 100 ML 2 GM/100 ML BAG IVPB ×5 (00:01→16:24)
--- NOTE | 2022-06-29 00:42 | PC.NURSE ---
Transfer Team from [facility] called for update on patient. No bed available @ this time.
[2022-06-29 05:44] LABS: Estimated CRCL calculation 64 ml/min; Estimated Glomerular Filt Rate > 60
[2022-06-29 08:00] VITALS: BP 138/73; PULSE 55; RESP 18; TEMP 36.3; O2SAT 95
[2022-06-29 08:21] LABS: Glucose Point of Care 176 mg/dl (65-105)
[2022-06-29] MEDS: GLIMEPIRIDE 1 MG TABLET 3 MG PO (08:26)
[2022-06-29] MEDS: MAGNESIUM OXIDE 400 MG TABLET PO (08:27)
[2022-06-29] MEDS: TAMSULOSIN HCL 0.4 MG CAPSULE PO (08:27)
[2022-06-29] MEDS: amLODIPine BESYLATE 5 MG TABLET 10 MG PO (08:28)
[2022-06-29] MEDS: PANTOPRAZOLE 40 MG TABLET PO (08:28)
[2022-06-29] MEDS: allopurinoL 100 MG TABLET PO (08:29)
[2022-06-29 09:00] LABS: Hematocrit 37.4 % (37.0-46.0); Hemoglobin 12.2 g/dL (12.4-15.3); Mean Corpuscular HGB Conc 32.6 g/dL (32.0-36.0); Mean Corpuscular Hemoglobin 30.8 pg (27.0-31.0); Mean Corpuscular Volume 94.4 fL (78.0-102.0); Platelet Count Result 139 K/mm3 (150-420); Red Blood Count 3.96 M/mm3 (4.70-6.10); White Blood Count 7.9 K/mm3 (4.8-10.8)
[2022-06-29 09:09] LABS: Alanine Aminotransferase 47 U/L (16-63); Alkaline Phosphatase 136 U/L (46-116); Anion Gap 6 mmol/L (8-16); Aspartate Amino Transferase 30 U/L (15-37); Bilirubin,Total 0.6 mg/dL (0.00-1.00); Blood Urea Nitrogen 15 mg/dL (7-18); Calcium 8.2 mg/dL (8.5-10.1); Carbon Dioxide 26 mmol/L (21-32); Chloride 101 mmol/L (98-108); Estimated CRCL calculation 62 ml/min; Estimated Glomerular Filt Rate > 60; Glucose 207 mg/dL (70-99); Osmolality Calculated 282 mOsm/kg (285-295); Potassium 4.5 mmol/L (3.5-5.1); Sodium 133 mmol/L (136-145); Total Protein 6.4 g/dL (6.4-8.2)
--- NOTE | 2022-06-29 10:23 | P.PN_ITS ---
Progress Note: A&P Assessment and Plan (1) Blood bacterial culture positive: Code(s): R78.81 - Bacteremia Status: Acute Assessment and Plan: Positive blood culture and urine cultures IV Vancomycin Spoke ID pharmacist appropriate antibiotic obtain requested recheck BC today Blood cultures positive and growing enterococcus faecalis Spoke with infectious disease Pharmacist today and patient is in need of staying until he is not growing anything once that happens he can be set up with a PICC line and have outpatient IV therapy. Spo once no growth on preliminary we will set up for outpatient IV therapy. 06/24/2022 * source unknown * Repeat blood culture pending patient antibiotics change to daptomycin * will do a MRI on Tuesday the pelvis and abdomen * 2nd bottle of blood culture with a growth of enterococcus faecalis * 3rd bottle with a growth of enterococcus faecalis * WBCs within normal limits lactic acid within normal limits * MRI of the pelvis no new findings MRI of the pelvis no new findings * echo pending 06/29/2022 * awaiting bed at [facility] * 4th blood culture preliminary no growth * if final reading is a without growth patient would prefer to discharge home with the treatment of daptomycin x4 weeks. consulted Infectious Disease patient will need to be on Depo mice in 4 weeks with a repeat blood culture in 1 week. * patient will need a PICC line placement he will also need to do a virtual with Dr. Arrieta. his primary is Dr. Carpio he is not available (2) COVID-19: Code(s): U07.1 - COVID-19 Status: Acute Assessment and Plan: * previously on paxlovid * getting IV steroid * breathing treatment as indicated * oxygen as indicated treat symptoms * afebrile * continue to be asymptomatic at this time 06/23/2022 * Discontinued dexamethasone * patient off isolation (3) Hypomagnesemia: Code(s): E83.42 - Hypomagnesemia Status: Acute Assessment and Plan: IV mag given Mag 1.7 oral mag started (4) 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 Carpio and he cleared to start Norvasc as pt not willing to start without his permission * Ok to take Norvasc * Patient continues to take oral Norvasc (6) BPH (benign prostatic hyperplasia): Code(s): N40.0 - Benign prostatic hyperplasia without lower urinary tract symptoms Status: Acute Assessment and Plan: * continue Flomax patient has been refusing Flomax is currently accepting medication (7) GERD (gastroesophageal reflux disease): Code(s): K21.9 - Gastro-esophageal reflux disease without esophagitis Status: Acute Assessment and Plan: * started pantoprazole (8) Type 2 diabetes mellitus: Code(s): E11.9 - Type 2 diabetes mellitus without complications Status: Acute Assessment and Plan: * a1c 6.7(04/2022) * continue blood sugars with Accu-Chek and sliding scale * will resume diabetic medication on discharge * will continue to monitor * blood sugar elevated restarted glipizide (9) Abnormal urinalysis: Code(s): R82.90 - Unspecified abnormal findings in urine Status: Acute Assessment and Plan: * UA with leukocytes and bacteria * Macrob
--- NOTE | 2022-06-29 10:23 | WPDPN ---
Progress Note: A&P Assessment and Plan (1) Blood bacterial culture positive: Code(s): R78.81 - Bacteremia Status: Acute Assessment and Plan: Positive blood culture and urine cultures IV Vancomycin Spoke ID pharmacist appropriate antibiotic obtain requested recheck BC today Blood cultures positive and growing enterococcus faecalis Spoke with infectious disease Pharmacist today and patient is in need of staying until he is not growing anything once that happens he can be set up with a PICC line and have outpatient IV therapy. Spo once no growth on preliminary we will set up for outpatient IV therapy. 06/24/2022 source unknown Repeat blood culture pending patient antibiotics change to daptomycin will do a MRI on Tuesday the pelvis and abdomen 2nd bottle of blood culture with a growth of enterococcus faecalis 3rd bottle with a growth of enterococcus faecalis WBCs within normal limits lactic acid within normal limits MRI of the pelvis no new findings MRI of the pelvis no new findings echo pending 06/29/2022 awaiting bed at [facility] 4th blood culture preliminary no growth if final reading is a without growth patient would prefer to discharge home with the treatment of daptomycin x4 weeks. consulted Infectious Disease patient will need to be on Depo mice in 4 weeks with a repeat blood culture in 1 week. patient will need a PICC line placement he will also need to do a virtual with Dr. Arrieta. his primary is Dr. Carpio he is not available (2) COVID-19: Code(s): U07.1 - COVID-19 Status: Acute Assessment and Plan: previously on paxlovid getting IV steroid breathing treatment as indicated oxygen as indicated treat symptoms afebrile continue to be asymptomatic at this time 06/23/2022 Discontinued dexamethasone patient off isolation (3) Hypomagnesemia: Code(s): E83.42 - Hypomagnesemia Status: Acute Assessment and Plan: IV mag given Mag 1.7 oral mag started (4) 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 Carpio and he cleared to start Norvasc as pt not willing to start without his permission Ok to take Norvasc Patient continues to take oral Norvasc (6) BPH (benign prostatic hyperplasia): Code(s): N40.0 - Benign prostatic hyperplasia without lower urinary tract symptoms Status: Acute Assessment and Plan: continue Flomax patient has been refusing Flomax is currently accepting medication (7) GERD (gastroesophageal reflux disease): Code(s): K21.9 - Gastro-esophageal reflux disease without esophagitis Status: Acute Assessment and Plan: started pantoprazole (8) Type 2 diabetes mellitus: Code(s): E11.9 - Type 2 diabetes mellitus without complications Status: Acute Assessment and Plan: a1c 6.7(04/2022) continue blood sugars with Accu-Chek and sliding scale will resume diabetic medication on discharge will continue to monitor blood sugar elevated restarted glipizide (9) Abnormal urinalysis: Code(s): R82.90 - Unspecified abnormal findings in urine Status: Acute Assessment and Plan: UA with leukocytes and bacteria Macrobid completed UA culture no growth will continue antibiotics Subjective Date/time seen: 06/29/22 10:23 Interval history: patient has no complaints. awaiting transfer to [facility] patient informed that his 4 blood culture preliminary is without growth. Patient will prefer to discharge with IV antibiotic treatment daptomycin as outpatient treatment if the 4th culture remains to have no growth. The patient denies SOB,
[2022-06-29 11:38] LABS: Glucose Point of Care 275 mg/dl (65-105)
[2022-06-29 16:00] VITALS: BP 124/58; PULSE 56; RESP 18; TEMP 36.2; O2SAT 97
[2022-06-29 16:38] LABS: Glucose Point of Care 147 mg/dl (65-105)
--- NOTE | 2022-06-29 17:16 | P.DS_ITS ---
DS: Admitting Diagnosis Discharge Date None patient did not discharge day Admitting Diagnosis Bacteriemia DS: Discharge Diagnosis Discharge Diagnosis (1) Blood bacterial culture positive: Code(s): R78.81 - Bacteremia Status: Acute Assessment and Plan: Positive blood culture and urine cultures IV Vancomycin Spoke ID pharmacist appropriate antibiotic obtain requested recheck BC today Blood cultures positive and growing enterococcus faecalis Spoke with infectious disease Pharmacist today and patient is in need of staying until he is not growing anything once that happens he can be set up with a PICC line and have outpatient IV therapy. Spo once no growth on preliminary we will set up for outpatient IV therapy. 06/24/2022 * source unknown * Repeat blood culture pending patient antibiotics change to daptomycin * will do a MRI on Tuesday the pelvis and abdomen * 2nd bottle of blood culture with a growth of enterococcus faecalis * 3rd bottle with a growth of enterococcus faecalis * WBCs within normal limits lactic acid within normal limits * MRI of the pelvis no new findings MRI of the pelvis no new findings * echo pending 06/29/2022 * awaiting bed at [place] * 4th blood culture preliminary no growth * if final reading is a without growth patient would prefer to discharge home with the treatment of daptomycin x4 weeks. consulted Infectious Disease patient will need to be on Depo mice in 4 weeks with a repeat blood culture in 1 week. * patient will need a PICC line placement he will also need to do a virtual with Dr. Arrieta. his primary is Dr. Carpio he is not available (2) COVID-19: Code(s): U07.1 - COVID-19 Status: Acute Assessment and Plan: * previously on paxlovid * getting IV steroid * breathing treatment as indicated * oxygen as indicated treat symptoms * afebrile * continue to be asymptomatic at this time 06/23/2022 * Discontinued dexamethasone * patient off isolation (3) Hypomagnesemia: Code(s): E83.42 - Hypomagnesemia Status: Acute Assessment and Plan: IV mag given Mag 1.7 oral mag started (4) 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 Carpio and he cleared to start Norvasc as pt not willing to start without his permission * Ok to take Norvasc * Patient continues to take oral Norvasc (6) BPH (benign prostatic hyperplasia): Code(s): N40.0 - Benign prostatic hyperplasia without lower urinary tract symptoms Status: Acute Assessment and Plan: * continue Flomax patient has been refusing Flomax is currently accepting me dication (7) GERD (gastroesophageal reflux disease): Code(s): K21.9 - Gastro-esophageal reflux disease without esophagitis Status: Acute Assessment and Plan: * started pantoprazole (8) Type 2 diabetes mellitus: Code(s): E11.9 - Type 2 diabetes mellitus without complications Status: Acute Assessment and Plan: * a1c 6.7(04/2022) * continue blood sugars with Accu-Chek and sliding scale * will resume diabetic medication on discharge * will continue to monitor * blood sugar elevated restarted glipizide (9) Abnormal urinalysis: Code(s): R82.90 - Unspecifie
--- NOTE | 2022-06-29 17:16 | PM.DS ---
DS: Admitting Diagnosis Discharge Date None patient did not discharge day Admitting Diagnosis Bacteriemia DS: Discharge Diagnosis Discharge Diagnosis (1) Blood bacterial culture positive: Code(s): R78.81 - Bacteremia Status: Acute Assessment and Plan: Positive blood culture and urine cultures IV Vancomycin Spoke ID pharmacist appropriate antibiotic obtain requested recheck BC today Blood cultures positive and growing enterococcus faecalis Spoke with infectious disease Pharmacist today and patient is in need of staying until he is not growing anything once that happens he can be set up with a PICC line and have outpatient IV therapy. Spo once no growth on preliminary we will set up for outpatient IV therapy. 06/24/2022 source unknown Repeat blood culture pending patient antibiotics change to daptomycin will do a MRI on Tuesday the pelvis and abdomen 2nd bottle of blood culture with a growth of enterococcus faecalis 3rd bottle with a growth of enterococcus faecalis WBCs within normal limits lactic acid within normal limits MRI of the pelvis no new findings MRI of the pelvis no new findings echo pending 06/29/2022 awaiting bed at [place] 4th blood culture preliminary no growth if final reading is a without growth patient would prefer to discharge home with the treatment of daptomycin x4 weeks. consulted Infectious Disease patient will need to be on Depo mice in 4 weeks with a repeat blood culture in 1 week. patient will need a PICC line placement he will also need to do a virtual with Dr. Arrieta. his primary is Dr. Carpio he is not available (2) COVID-19: Code(s): U07.1 - COVID-19 Status: Acute Assessment and Plan: previously on paxlovid getting IV steroid breathing treatment as indicated oxygen as indicated treat symptoms afebrile continue to be asymptomatic at this time 06/23/2022 Discontinued dexamethasone patient off isolation (3) Hypomagnesemia: Code(s): E83.42 - Hypomagnesemia Status: Acute Assessment and Plan: IV mag given Mag 1.7 oral mag started (4) 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 Carpio and he cleared to start Norvasc as pt not willing to start without his permission Ok to take Norvasc Patient continues to take oral Norvasc (6) BPH (benign prostatic hyperplasia): Code(s): N40.0 - Benign prostatic hyperplasia without lower urinary tract symptoms Status: Acute Assessment and Plan: continue Flomax patient has been refusing Flomax is currently accepting medication (7) GERD (gastroesophageal reflux disease): Code(s): K21.9 - Gastro-esophageal reflux disease without esophagitis Status: Acute Assessment and Plan: started pantoprazole (8) Type 2 diabetes mellitus: Code(s): E11.9 - Type 2 diabetes mellitus without complications Status: Acute Assessment and Plan: a1c 6.7(04/2022) continue blood sugars with Accu-Chek and sliding scale will resume diabetic medication on discharge will continue to monitor blood sugar elevated restarted glipizide (9) Abnormal urinalysis: Code(s): R82.90 - Unspecified abnormal findings in urine Status: Acute Assessment and Plan: UA with leukocytes and bacteria Macrobid completed UA culture no growth will continue antibiotics DS: Summary Hospital Course Reason for hospitalization: bacteriemia Hospital Course: 82-year-old male has been seen at his primary care physician office for UTI 2 .? He recently had scraping of his bladder for bladder cancer and had indwelling catheter.?
--- NOTE | 2022-06-29 18:02 | PC.NURSE ---
1700 [facility] called and they have a bed room 2306A. patient and Firearms Expert aware. Report called to rosie at [facility]. 1750 called [facility] and they will not do. called [facility] ambulance at this time. patient up ad abigail in room.
--- NOTE | 2022-06-29 18:27 | PC.NURSE ---
[facility] here and patient care turned over to them.
== END 2022-06-29 18:25 | disposition short-term general hospital (02) | DRG 871 ==
LOC: CHSED 18:39 → CHS2ND 06-17 07:33
PROVIDERS: Nurse Practitioner; Nurse Practitioner Family; Admitting Provider Internal Medicine; Emergency Provider Emergency Medicine; PCP Internal Medicine; Visit Provider Internal Medicine
DX: R78.81 Bacteremia (principal); U07.1 COVID-19; E83.42 Hypomagnesemia; E87.1 Hypo-osmolality and hyponatremia; I10 Essential (primary) hypertension; I48.0 Paroxysmal atrial fibrillation; C67.9 Malignant neoplasm of bladder, unspecified; N40.0 Benign prostatic hyperplasia without lower urinary tract symptoms; J44.9 Chronic obstructive pulmonary disease, unspecified; E11.9 Type 2 diabetes mellitus without complications; E78.5 Hyperlipidemia, unspecified; B95.2 Enterococcus as the cause of diseases classified elsewhere; Z79.84 Long term (current) use of oral hypoglycemic drugs; Z96.659 Presence of unspecified artificial knee joint; K21.9 Gastro-esophageal reflux disease without esophagitis; R82.90 Unspecified abnormal findings in urine; Z90.2 Acquired absence of lung [part of]; Z87.891 Personal history of nicotine dependence; Z85.118 Personal history of other malignant neoplasm of bronchus and lung
CPT/HCPCS: 36415; 71045; 72195; 80048; 80053; 80202; 81001; 82150; 82550; 82565; 82728; 82948; 83605; 83690; 83735; 84460; 85025; 85027; 85610; 85652; 86140; 87040; 87077; 87086; 87088; 87147; 87186; 96361; 96365; 99285; A9270; J0248; J0290; J0878; J1100; J1815; J3370; J3475; J7030; U0003; U0005

== ENCOUNTER 2023-06-14 08:03 | Outpatient (CLI) | payer MEDICARE, SELFPAY ==
[2023-06-14 08:21] LABS: Basophils Absolute Auto 0.02 K/mm3 (0.00-0.10); Basophils Percent Auto 0.4 % (0.0-1.0); Eosinophils Absolute Auto 0.23 K/mm3 (0.02-0.50); Eosinophils Percent Auto 4.2 % (1.0-6.0); Hematocrit 37.9 % (37.0-46.0); Immature Granulocyte Absolute 0.02 K/mm3 (0.00-0.00); Immature Granulocyte Percent A 0.4 % (0.0-0.0); Lymphocytes Absolute Auto 1.25 K/mm3 (1.10-4.50); Lymphocytes Percent Auto 22.7 % (18.0-42.0); Mean Corpuscular HGB Conc 31.7 g/dL (32.0-36.0); Mean Corpuscular Hemoglobin 28.6 pg (27.0-31.0); Mean Corpuscular Volume 90.2 fL (78.0-102.0); Mean Platelet Volume 12.4 fl (8.7-11.0); Monocytes Absolute Auto 0.48 K/mm3 (0.10-0.90); Monocytes Percent Auto 8.7 % (2.0-11.0); Neutrophils Absolute Auto 3.5 K/mm3 (1.7-7.2); Neutrophils Percent Auto 63.6 % (50.0-70.0); Platelet Count Result 111 K/mm3 (150-420); Red Cell Distribution Width 14.9 % (11.6-14.4); White Blood Count 5.5 K/mm3 (4.8-10.8)
[2023-06-14 08:22] LABS: Appearance Urine Clear (Clear); Bilirubin Urine Negative (Negative); Blood Urine Negative (Negative); Color Urine Light Yellow (Yellow); Glucose Urine UA Negative (Negative); Ketones Urine Negative (Negative); Leukocyte Esterase Ur Negative (Negative); Nitrate Urine Negative (Negative); Protein Urine Negative (Negative); Specific Grav Ur 1.015 (1.010-1.020); Urobilinogen Urine 0.2 mg/dL (0.2-1.0); pH Urine 6.5 (5.0-8.0)
[2023-06-14 08:28] LABS: Creatinine Urine 81.87 mg/dL (40-278); MALB Creatinine Ratio 63.2 mg/g (0-30); Microalbumin Urine Random 51.8 mg/L
[2023-06-14 08:30] LABS: Hemoglobin A1C 7.4 % (<5.7)
[2023-06-14 08:32] LABS: Add Urine Microscopic? NO
[2023-06-14 09:26] LABS: Alanine Aminotransferase 37 U/L (16-63); Albumin Level 3.6 g/dL (3.4-5.0); Alkaline Phosphatase 124 U/L (46-116); Anion Gap 7 mmol/L (8-16); Aspartate Amino Transferase 41 U/L (15-37); Bilirubin,Total 0.7 mg/dL (0.00-1.00); Blood Urea Nitrogen 14 mg/dL (7-18); Calcium 9.1 mg/dL (8.5-10.1); Carbon Dioxide 29 mmol/L (21-32); Chloride 103 mmol/L (98-108); Cholesterol 186 mg/dL (0-200); Creatine Kinase 176 U/L (39-308); Estimated Glomerular Filt Rate > 60; Ferritin 27 ng/mL (26-388); Free T3 2.31 pg/mL (2.18-3.98); Free T4 Free Thyroxine 0.84 ng/dL (0.76-1.46); Glucose 153 mg/dL (70-99); HDL Direct 52 mg/dL (40-60); Iron 49 ug/dL (65-175); LDL Cholesterol Calculated 111 mg/dL (<130); NT Pro B Type Natriuretic Pept 131 pg/mL (0-450); Osmolality Calculated 291 mOsm/kg (285-295); Potassium 4.2 mmol/L (3.5-5.1); Prostate Specific Antigen 0.3 ng/mL (< OR = 4.0); Sodium 139 mmol/L (136-145); Thyroid Stimulating Hormone 2.41 uIU/mL (0.36-3.74); Triglycerides 113 mg/dL (0-150); Uric Acid 5.1 mg/dL (3.5-7.2); Vitamin B12 647 pg/mL (193-986)
== END 2023-06-14 08:04 | disposition home or self-care (01) ==
LOC: CHSLAB 08:05
PROVIDERS: PCP Internal Medicine; Visit Provider Internal Medicine
DX: E79.0 Hyperuricemia without signs of inflammatory arthritis and tophaceous disease (principal); I10 Essential (primary) hypertension; E11.65 Type 2 diabetes mellitus with hyperglycemia; E78.2 Mixed hyperlipidemia; E53.8 Deficiency of other specified B group vitamins; G62.9 Polyneuropathy, unspecified; D64.9 Anemia, unspecified; N39.0 Urinary tract infection, site not specified; I50.9 Heart failure, unspecified; R97.20 Elevated prostate specific antigen [PSA]
CPT/HCPCS: 36415; 80053; 80061; 81003; 82043; 82550; 82607; 82728; 83036; 83540; 83880; 84153; 84439; 84443; 84481; 84550; 85025; 87086

== ENCOUNTER 2023-06-30 09:27 | Outpatient (CLI) | payer MEDICARE, OTHER, SELFPAY ==
--- NOTE | ~2023-06-30 | US_ITS ---
EXAMINATION: US carotid duplex BI DATE: 06/30/2023 10:09 INDICATION: Bilateral carotid stenosis TECHNIQUE: Grayscale, color Doppler, and pulsed Doppler images of the cervical carotid arteries were obtained. The degree of vessel stenosis is placed in one of the following categories: normal, <50%, 5 0-69%, >=70% but less than near-occlusion, near-occlusion, or total occlusion. Note that percent sten osis relative to normal distal artery lumen diameter is indirectly measured from velocity measurement s as described by Andi, et al. Radiology 2003; 229:340-346. COMPARISON: None. FINDINGS: RIGHT: The right common carotid artery (CCA) peak systolic velocity (PSV) is 71 cm/s. The right internal car otid artery (ICA) PSV is 92 cm/s. The right ICA end-diastolic velocity (EDV) is 21 cm/s. The right IC A/CCA PSV ratio is 1.3. Grayscale and color Doppler images yield an estimate of <50% diameter reducti on from plaque in the ICA. The external carotid artery (ECA) PSV is 158 cm/s. There is antegrade flow in the right vertebral artery. LEFT: The left CCA PSV is 98 cm/s. The left ICA PSV is 138 cm/s. The left ICA EDV is 24 cm/s. The left ICA/ CCA PSV ratio is 1.4. Grayscale and color Doppler images yield an estimate of 50-69% diameter reducti on from plaque in the ICA. The vessels at this location is however tortuous which could result in shayy e velocity elevation over estimating the degree of stenosis. The ECA PSV is 181 cm/s. There is antegr raul flow in the left vertebral artery. IMPRESSION: 1. <50% stenosis in the right internal carotid artery. 2. 50-69% stenosis in the left internal carotid artery although specificities decreased by the tortuo sity of the vessel dislocation which could contribute to the velocity elevation resulting in over est imation of the degree of stenosis. 3. Cardiac arrhythmia is present. Correlate with EKG. Reviewed, dictated and finalized at location A. [employer] IMPRESSION: 1. <50% stenosis in the right internal carotid artery. 2. 50-69% stenosis in the left internal carotid artery although specificities d ecreased by the tortuosity of the vessel dislocation which could contribute to the velocity elevation resulting in over estimation of the degree of stenosis. 3. Cardiac arrhythmia is present. Correlate with EKG.
--- NOTE | ~2023-06-30 | US_ITS ---
Ultrasound of the left axilla CLINICAL HISTORY: Mass TECHNIQUE: Sonographic imaging of the area of concern at the left axilla was performed. FINDINGS: No mass lesion identified. No fluid collection or cystic lesion seen. IMPRESSION: No significant abnormality seen at the left axilla. Reviewed, dictated and finalized at [facility]. ERS SUPERVISOR
== END 2023-06-30 09:28 | disposition home or self-care (01) ==
LOC: CHSIMG 09:29
PROVIDERS: PCP Internal Medicine; Visit Provider Internal Medicine
DX: I65.23 Occlusion and stenosis of bilateral carotid arteries (principal); I49.9 Cardiac arrhythmia, unspecified; R22.2 Localized swelling, mass and lump, trunk
CPT/HCPCS: 76882; 93880

== ENCOUNTER 2023-07-08 12:44 | Outpatient (CLI) | payer MEDICARE, OTHER, SELFPAY ==
--- NOTE | ~2023-07-08 | CT_ITS ---
EXAMINATION: CTA neck DATE: 07/08/2023 13:41 INDICATION: Bilateral carotid stenosis TECHNIQUE: Computed tomographic angiography (CTA) of the neck was performed with 100 mL Omnipaque-350 intravenous contrast. Multiplanar reconstructions and maximum intensity projection 3D-reconstruction s were created by the technologist on a separate workstation. The dose-length product was mGy-cm. COMPARISON: None. FINDINGS: There are atherosclerotic calcifications along the visualized portion of the aortic arch and origin o f the great vessels without hemodynamically significant stenosis. There is atherosclerotic plaque wit h 0% stenosis of the right carotid bulb relative to normal distal artery lumen diameter (NASCET crite jade). There is atherosclerotic plaque with 0% stenosis of the left carotid bulb relative to normal di stal artery lumen diameter. There is tortuosity of the more cephalad cervical internal carotid artery with a kink in the course of the artery at the distal margin of the carotid bulb which results in ap proximately 40% stenosis. There is atherosclerotic plaque at the origins of the bilateral vertebral a rteries with severe, >70% stenosis on the right and moderate 50-70% stenosis on the left. Cervical so ft tissues are unremarkable. Severe lower cervical spondylosis. Emphysema and biapical pleural-parenc hymal scarring. IMPRESSION: 1. Atherosclerotic plaque with 0% stenosis of the right carotid bulb relative to normal distal artery lumen diameter (NASCET criteria). 2. Atherosclerotic plaque with 0% stenosis of the left carotid bulb relative to normal distal artery lumen diameter. There is however a 40% stenosis immediately distal to the carotid bulb not related to atherosclerotic disease but resulting from a sharp kink in the course of the artery. 3. Atherosclerotic plaque at the origins of the bilateral vertebral arteries with and moderate stenos is on the left and severe stenosis on the right. Reviewed, dictated and finalized at location A. MAT[employer] CHIEF IMPRESSION: 1. Atherosclerotic plaque with 0% stenosis of the right carotid bulb relative t o normal distal artery lumen diameter (NASCET criteria). 2. Atherosclerotic plaque with 0% stenosis of the left carotid bulb relative to normal distal artery lumen diameter. There is however a 40% stenosis immediate ly distal to the carotid bulb not related to atherosclerotic disease but result ing from a sharp kink in the course of the artery. 3. Atherosclerotic plaque at the origins of the bilateral vertebral arteries wi th and moderate stenosis on the left and severe stenosis on the right.
--- NOTE | ~2023-07-08 | CT_ITS ---
EXAMINATION: CT diagnostic chest wo con DATE: 07/08/2023 13:40 INDICATION: BL carotid stenosis, chest pain hx lung cancer/a.fib TECHNIQUE: Computed tomography (CT) of the chest was performed without intravenous contrast. Addition al 3D reconstructions utilizing coronal maximum intensity projection (MIP) were performed. Automated exposure control and iterative reconstruction technique were employed. The dose-length product was 85 4.65 mGy-cm. COMPARISON: Chest CT dated 04/22/[address] abdomen and pelvis dated 04/28/2022 FINDINGS: Again seen is volume loss in left hemithorax with change of prior right lower lobectomy. New pleural- parenchymal scarring at the site of prior emphysematous changes at the left apex. Moderate emphysemat ous changes with associated irregular septal line thickening and mild associated bronchiectasis in th e right upper lobe and portions of the right lower lobe. Stable chronic 8 mm and 6 mm nodules in the right lower lobe consistent with old granulomatous disease. There are 6 mm and 4 mm nodules at the az ygos esophageal recess region obscured on the prior chest CT but which are unchanged since CT dated 1 . No new or enlarging pulmonary nodules, pneumonia, pulmonary edema or pleural effusion. Hea rt size is normal. Atherosclerotic coronary artery calcifications and possible stenting along the lef t anterior descending coronary artery. Prominent aortic valve calcification. No pericardial effusion. Thoracic aorta is normal in caliber. No pathologically enlarged thoracic lymphadenopathy. Nodular li yamini surface consistent with cirrhosis. Mild thoracic kyphosis with chronic mild anterior wedging of a few mid thoracic vertebral bodies. Moderate spondylosis. IMPRESSION: 1. Status post left lower lobectomy for reported prior lung cancer. No evident residual, recurrent or metastatic disease . 2. Scattered regions of moderate emphysematous changes with surgical scarring and bronchiectatic martin ges. 3. Cirrhosis. Reviewed, dictated and finalized at location A. OPE HYDROLOGIST IMPRESSION: 1. Status post left lower lobectomy for reported prior lung cancer. No evident residual, recurrent or metastatic disease . 2. Scattered regions of moderate emphysematous changes with surgical scarring a nd bronchiectatic changes. 3. Cirrhosis.
== END 2023-07-08 12:45 | disposition home or self-care (01) ==
LOC: CHSIMG 12:45
PROVIDERS: PCP Internal Medicine; Visit Provider Internal Medicine
DX: I65.23 Occlusion and stenosis of bilateral carotid arteries (principal); R07.9 Chest pain, unspecified; Z90.2 Acquired absence of lung [part of]; Z85.118 Personal history of other malignant neoplasm of bronchus and lung; K74.60 Unspecified cirrhosis of liver
CPT/HCPCS: 70498; 71250; Q9967

== ENCOUNTER 2023-11-17 22:27 | Observation (INO) | payer MEDICARE, OTHER, SELFPAY ==
[2023-11-17] VITALS (8 sets, daily range): BP systolic 147–159; BP diastolic 62–111; PULSE 86–94; RESP 14–23; TEMP 38.6; O2SAT 94–99
--- NOTE | ~2023-11-17 | XR_ITS ---
EXAMINATION: XR chest 1V portable DATE: 11/17/2023 22:48 INDICATION: Dyspnea TECHNIQUE: frontal view of the chest was obtained. COMPARISON: Chest radiograph dated 06/16/[address] dated 07/08/2023 FINDINGS: Unchanged mild left apical pleural-parenchymal scarring. Increased lucency and some architectural dis tortion in the right upper lung zone consistent with emphysema better appreciated on the prior CT. No new airspace opacities, pulmonary edema, pleural effusion or pneumothorax. The cardiomediastinal amelia houette is normal. Foreign body projecting over the heart which on CT is positioned along the mitral valve likely representing a microclip. IMPRESSION: 1. Emphysema and chronic mild left apical pleural-parenchymal scarring. No acute cardiopulmonary dise ase. Reviewed, dictated and finalized at location A. IMPRESSION: 1. Emphysema and chronic mild left apical pleural-parenchymal scarring. No acut e cardiopulmonary disease.
--- NOTE | ~2023-11-17 | CT_ITS ---
Clinical Indication: Dyspnea CT Scan of the Chest with Contrast: Technique: Contiguous sections were acquired throughout the chest after intravenous administration of 100 cc of Omnipaque 350. Dose reduction technique was used on this scan by utilizing automated expos ure control and iterative reconstruction technique. The dose-length product (DLP) was 911.30 mGy-cm. COMPARISON: 07/08/2023 Findings: There is no evidence of any significant mediastinal, hilar or axillary lymphadenopathy. There is no f illing defect in the pulmonary arterial tree to suggest pulmonary embolus. There is no evidence of ao rtic dissection or aneurysm. There is no evidence of pleural or pericardial effusion. Status post left upper lobectomy. Stable 6 mm right lower lobe pulmonary nodule (axial image 70). Sta ble 8 mm right lower lobe pulmonary nodule (axial image 78). Stable emphysematous change right upper lobe. There are mild bibasilar chronic interstitial changes. Images through the upper abdomen reveal mildly nodular contour of the liver. Impression: No evidence of pulmonary embolus, aortic dissection, or aortic aneurysm. No acute pulmonary abnormality. Stable right lower lobe pulmonary nodules, as detailed above. Status post left upper lobectomy. Stable emphysematous change and mild chronic interstitial changes. Reviewed, dictated and finalized at location M. Impression: No evidence of pulmonary embolus, aortic dissection, or aortic aneurysm. No acute pulmonary abnormality. Stable right lower lobe pulmonary nodules, as d etailed above. Status post left upper lobectomy. Stable emphysematous change and mild chronic interstitial changes.
--- NOTE | 2023-11-17 22:35 | ECG_ITS ---
SEE SCANNED COPY FOR CONFIRMED REPORT MTDD
[2023-11-17 22:56] LABS: Basophils Absolute Auto 0.03 K/mm3 (0.00-0.10); Basophils Percent Auto 0.3 % (0.0-1.0); Eosinophils Absolute Auto 0.16 K/mm3 (0.02-0.50); Eosinophils Percent Auto 1.5 % (1.0-6.0); Hematocrit 39.9 % (37.0-46.0); Hemoglobin 12.6 g/dL (12.4-15.3); Immature Granulocyte Absolute 0.03 K/mm3 (0.00-0.00); Immature Granulocyte Percent A 0.3 % (0.0-0.0); Lymphocytes Absolute Auto 0.83 K/mm3 (1.10-4.50); Lymphocytes Percent Auto 7.7 % (18.0-42.0); Mean Corpuscular HGB Conc 31.6 g/dL (32-36); Mean Corpuscular Hemoglobin 30.4 pg (27.0-31.0); Mean Corpuscular Volume 96.1 fL (78.0-102.0); Mean Platelet Volume 12.8 fl (8.7-11.0); Monocytes Absolute Auto 0.79 K/mm3 (0.10-0.90); Monocytes Percent Auto 7.4 % (2.0-11.0); Neutrophils Absolute Auto 8.89 K/mm3 (1.70-7.20); Neutrophils Percent Auto 82.8 % (50.0-70.0); Platelet Count Result 128 K/mm3 (150-420); Red Blood Count 4.15 M/mm3 (4.70-6.10); Red Cell Distribution Width 14.5 % (11.6-14.4); White Blood Count 10.7 K/mm3 (4.8-10.8)
[2023-11-17] MEDS: ACETAMINOPHEN 325 MG TABLET 650 MG PO (23:05)
[2023-11-17] MEDS: methylPREDNISolone SOD SUCC 125 MG VIAL IV PUSH (23:11)
--- NOTE | 2023-11-17 23:11 | ED.SOB ---
HPI - SOB/Dyspnea General Chief Complaint: Fever Stated Complaint: SOB/Chills Time Seen by Provider: 11/17/23 22:28 Source: patient, family and EMS Mode of arrival: EMS History of Present Illness HPI Narrative: this is an 83-year-old male that presents with shortness of breath via EMS after he became short of breath earlier this evening with development of fever, the patient has a history of lung cancer with left upper lobe lobectomy. Currently there is no chest pain no nausea vomiting abdominal pain. Patient also has a history of CAD with stent placement and history of bladder cancer. MD elicited complaint: shortness of breath Pertinent past history: COPD Onset (ago): hour(s) Severity: moderate Known history of: COPD Related Data Home Medications Medication Instructions Recorded Confirmed albuterol sulfate 1.25 mg/3 mL 1.25 mg continuous nebulization 05/13/22 11/17/23 solution for nebulization PRN PRN Shortness Of Breath albuterol sulfate 90 mcg/actuation 2 puff inhalation PRN PRN Wheezing 05/13/22 11/17/23 aerosol inhaler (Ventolin HFA) allopurinol 100 mg tablet 100 mg PO DAILY 05/13/22 11/17/23 amlodipine 5 mg tablet 10 mg PO DAILY 05/13/22 11/17/23 bisoprolol fumarate 5 mg tablet 5 mg PO HS 05/13/22 11/17/23 budesonide-formoterol HFA 160 2 puff inhalation DAILY 05/13/22 11/17/23 mcg-4.5 mcg/actuation aerosol inhaler (Symbicort) celecoxib 200 mg capsule 200 mg PO DAILY 05/13/22 11/17/23 dulaglutide 4.5 mg/0.5 mL 4.5 mg subcut WEEKLY 05/13/22 11/17/23 subcutaneous pen injector (Trulicity) evolocumab 140 mg/mL subcutaneous 140 mg subcut MONTHLY 05/13/22 11/17/23 pen injector (Evelin Bansal) glimepiride 2 mg tablet 3 mg PO DAILY 05/13/22 11/17/23 losartan 100 mg tablet 100 mg PO HS 05/13/22 11/17/23 metformin 500 mg tablet,extended 2,000 mg PO DAILY 05/13/22 11/17/23 release 24 hr omeprazole 20 mg capsule,delayed 20 mg PO DAILY 05/13/22 11/17/23 release tamsulosin 0.4 mg capsule 0.4 mg PO DAILY 05/13/22 11/17/23 tiotropium bromide 18 mcg capsule 1 cap inhalation DAILY 05/13/22 11/17/23 with inhalation device (Spiriva with HandiHaler) hydrocodone 5 mg-acetaminophen 325 1 tablet PO QID PRN Pain 06/16/22 11/17/23 mg tablet Allergies Allergy/AdvReac Type Severity Reaction Status Date / Time No Known Allergies Allergy Unknown Verified 11/17/23 22:45 Review of Systems Review of Systems: All systems reviewed & are unremarkable except as noted in HPI and below PMFSH Past Medical History Medical History Bladder tumor BPH (benign prostatic hyperplasia) COPD (chronic obstructive pulmonary disease) GERD (gastroesophageal reflux disease) History of lung cancer Hyperlipidemia Hypertension Paroxysmal A-fib Type 2 diabetes mellitus Surgical History Surgical History History of knee replacement History of lobectomy of lung Hx of cholecystectomy Social History Social History Smoking status: Former smoker Second hand tobacco smoke exposure: No Alcohol intake: current Substance use: never Lack of Transportation: No Lack of Food: Never True Current Housing: I Have Housing Concerned About Future Housing: No Difficulty Paying Gas/Electric Bills: No Difficulty Paying for Meds: No Currently Unemployed: No Education: Master's Degree or Higher Difficulty w/ Childcare or Family Care: No Spiritual care concerns: No Exam Const: General: no acute distress Nutritional Appearance: well nourished and obese Orientation/consciousness: patient oriented x3 Limitations: no limitations HENMT: Head: normal to inspection Resp: Effort & Inspection: normal respiratory effort Auscultation: diminished lung sounds Cardio: Rate: regular rate Rhythm: regular rhythm GI: GI Palp: Yes Soft to palpation Ausc
[2023-11-17 23:13] LABS: INR 1.1; Partial Thromboplastin Time 25.4 Sec (23.9-30.70); Prothrombin Time 11.9 Seconds (9.50-12.1)
[2023-11-17 23:19] LABS: Lactic Acid Reflex 3.5 mmol/L (0.4-2.0)
[2023-11-17 23:21] LABS: Alanine Aminotransferase 43 U/L (16-63); Albumin Level 3.5 g/dL (3.4-5.0); Alkaline Phosphatase 141 U/L (46-116); Anion Gap 15 mmol/L (4-12); Aspartate Amino Transferase 49 U/L (15-37); Bilirubin,Total 0.7 mg/dL (0.00-1.00); Blood Urea Nitrogen 15 mg/dL (7-18); Calcium 9.3 mg/dL (8.5-10.1); Carbon Dioxide 23 mmol/L (21-32); Chloride 103 mmol/L (98-108); Estimated CRCL calculation 61 ml/min; Estimated Glomerular Filt Rate > 60; Glucose 105 mg/dL (70-99); Magnesium 1.3 mg/dL (1.8-2.4); NT Pro B Type Natriuretic Pept 181 pg/mL (0-450); Osmolality Calculated 292 mOsm/kg (285-295); Potassium 3.9 mmol/L (3.5-5.1); Sodium 141 mmol/L (136-145); Total Protein 7.2 g/dL (6.4-8.2); Troponin I 16.2 ng/L (0.00-60.4)
[2023-11-17 23:26] LABS: D Dimer 1.51 mg/L (0.19-0.50)
[2023-11-17 23:33] LABS: SARS-CoV-2 RNA PCR Negative (Negative)
[2023-11-17] MEDS: MORPHINE SULFATE (*CRX) 2 MG/ML INJ IV PUSH (23:43)
[2023-11-17] MEDS: SODIUM CHLORIDE 0.9% IV 1,000 ML 999 ML IV CONT (23:46)
[2023-11-17] MEDS: MAGNESIUM SULF 2 GM/WATER 50ML 2 GM/50 ML BAG IVPB (23:46)
[2023-11-17 23:47] LABS: Influenza A QL RT-PCR Negative (Negative); Influenza B QL RT-PCR Negative (Negative); RSV RNA, RT-PCR Negative (Negative)
[2023-11-18] VITALS (15 sets, daily range): BP systolic 129–145; BP diastolic 57–71; PULSE 70–96; RESP 16–26; TEMP 36.2–38.6; O2SAT 91–99; BMI 35.2
[2023-11-18] MEDS: ACETAMINOPHEN 325 MG TABLET 650 MG PO (00:10)
[2023-11-18 00:13] LABS: Appearance Urine Clear (Clear); Bilirubin Urine Negative (Negative); Blood Urine Trace-intact (Negative); Color Urine Yellow (Yellow); Glucose Urine UA Negative (Negative); Ketones Urine Trace (Negative); Leukocyte Esterase Ur Negative LEU/UL (Negative); Nitrate Urine Negative (Negative); Protein Urine Trace (Negative); Urobilinogen Urine 0.2 mg/dL (0.2-1.0)
[2023-11-18 00:29] LABS: Add Urine Microscopic? YES; Bacteria Urine Trace /hpf; RBC Urine 0-2 /hpf (0-2); Squamous Epithelial Cell Urine None seen /hpf (Few); WBC Urine 0-3 /hpf (0-3)
[2023-11-18 00:31] LABS: Reflex Lactic Acid Yes or No No Lactic Reflex
--- NOTE | 2023-11-18 00:52 | PC.NURSE ---
ED SBAR printed and reviewed by this RN.
[2023-11-18] MEDS: IPRATROPIUM 0.5 MG/ALBUTEROL SULFATE 2.5 MG AMPUL.NEB 3 ML INHALATION ×2 (01:48→05:34)
[2023-11-18] MEDS: SODIUM CHLORIDE 0.9% IV 1,000 ML 100 ML IV CONT (02:15)
[2023-11-18] MEDS: AZITHROMYCIN 500 MG/NS 250 ML 500 MG/250 ML BAG 250 MG IVPB (02:17)
[2023-11-18] MEDS: methylPREDNISolone SOD SUCC 40 MG VIAL IV PUSH ×2 (06:21→18:08)
--- NOTE | 2023-11-18 08:18 | PM.IMHP ---
H&P: HPI History of Present Illness Date/Time: 11/18/23 08:18 Chief Complaint: shortness of breath, fever, chills Narrative: this is an 83-year-old male with a significant past medical history of COPD, bladder cancer, BPH, GERD, history of lung cancer with history of lobectomy, hyperlipidemia, hypertension, paroxysmal AFib, recent mitral valve repair, type 2 diabetes mellitus, bilateral total knee replacements, cholecystectomy, former smoker who presented to the hospital with shortness of breath, chills, fever. patient reports that his symptoms started last night when he started in with fever, chills, shortness of breath, and body aches. Patient denies any nausea, vomiting, diarrhea, abdominal pain, chest pain, shortness a breath, headache, lightheadedness, dizziness. Patient states he is feeling much better today however his T-max was 101.5? last night and he has blood cultures pending. 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 He also seen his oncologist Dr. Mohr at [place] this past week and he had a chest abdomen pelvis CT which shown a normal work up. Workup in the hospital included a chest x-ray which showed emphysema and chronic mild apical pleural parenchymal scarring, no acute cardiopulmonary disease. Initial labs were obtained which showed a normal white blood cell count of 10.7, platelet count of 128, D-dimer elevated at 1.51, INR was 1.1, lactic acid was 3.5, magnesium was 1.3, AST was 49, alk-phos was 141, troponin was negative at 16.2, proBNP was 181. A UA was obtained which showed trace urine protein, trace ketone, trace urine blood, otherwise negative. A respiratory panel was obtained and was negative for influenza a and B, RSV, COVID. Patient had a CTA of the chest which did rule out pulmonary embolism and did not show any acute pulmonary abnormality except for a stable right lower lobe pulmonary nodule, left upper lobectomy, stable emphysematous changes and mild chronic interstitial changes. Blood cultures were obtained and are pending. Patient was given 1 L of normal saline, 125 mg of IV push Solu-Medrol, morphine and Tylenol for pain, and was started on azithromycin and Rocephin. Patient's T-max was 101.5?, his heart rate was above 90, and his respiratory rate was above 25, and elevated lactate meeting severe sepsis however we have not identified a true source of infection, could be viral. he has had positive blood cultures in the past with Enterococcus Faecalis back in June 14, 2022 however that was attributed to a UTI that turned into bacteremia from Enterococcus species that was found in the urine. He was hospitalized for few weeks with IV antibiotics as his cultures remain positive until 06/27/2022. If patient remains afebrile overnight he can likely discharge in the morning. Review of Systems Review of Systems: All systems reviewed & are unremarkable except as noted in HPI and below Constitutional: Constitutional: Reports as per HPI and Reports no additional constitutional complaints Eyes: Eyes: Reports as per HPI and Reports no additional eye complaints ENT: Reports system reviewed and no additional complaints, except as documented and Reports as per HPI Cardiovascular: Cardiovascular: Reports as per HPI and Reports no additional cardiovascular complaints Respiratory: Respiratory: Reports as per HPI and Reports no additional respiratory complaints Gastrointestinal: Gastrointestinal: Reports as per HPI and Reports no additional gastrointestinal complaints Genitourinary: Genitourinary: Reports no additional male genitourinary complaints and Reports as per HPI Musculoskeletal: Musculoskeletal: Reports no additional musculoskeletal complaints and Reports as per HPI Integumentary/Breasts: Skin/Breast: Reports system reviewed and no additional complaints, except as docu and Reports as per HPI Neurologic: Repo
[2023-11-18 08:57] LABS: Eosinophils Absolute Auto 0.01 K/mm3 (0.02-0.50); Eosinophils Percent Auto 0.1 % (1.0-6.0); Hematocrit 37.3 % (37.0-46.0); Hemoglobin 11.9 g/dL (12.4-15.3); Immature Granulocyte Percent A 0.7 % (0.0-0.0); Lymphocytes Absolute Auto 0.46 K/mm3 (1.10-4.50); Lymphocytes Percent Auto 3.4 % (18.0-42.0); Mean Corpuscular HGB Conc 31.9 g/dL (32-36); Mean Corpuscular Hemoglobin 30.3 pg (27.0-31.0); Mean Corpuscular Volume 94.9 fL (78.0-102.0); Mean Platelet Volume 12.5 fl (8.7-11.0); Monocytes Absolute Auto 0.16 K/mm3 (0.10-0.90); Monocytes Percent Auto 1.2 % (2.0-11.0); Neutrophils Absolute Auto 12.93 K/mm3 (1.70-7.20); Neutrophils Percent Auto 94.6 % (50.0-70.0); Platelet Count Result 112 K/mm3 (150-420); Red Blood Count 3.93 M/mm3 (4.70-6.10); Red Cell Distribution Width 14.6 % (11.6-14.4); White Blood Count 13.7 K/mm3 (4.8-10.8)
[2023-11-18 09:11] LABS: Alanine Aminotransferase 42 U/L (16-63); Albumin Level 3.2 g/dL (3.4-5.0); Alkaline Phosphatase 140 U/L (46-116); Anion Gap 15 mmol/L (4-12); Aspartate Amino Transferase 48 U/L (15-37); Bilirubin,Total 0.7 mg/dL (0.00-1.00); Blood Urea Nitrogen 20 mg/dL (7-18); Calcium 8.7 mg/dL (8.5-10.1); Carbon Dioxide 21 mmol/L (21-32); Chloride 102 mmol/L (98-108); Estimated CRCL calculation 49 ml/min; Estimated Glomerular Filt Rate 52; Glucose 364 mg/dL (70-99); Magnesium 1.8 mg/dL (1.8-2.4); Osmolality Calculated 303 mOsm/kg (285-295); Potassium 4.4 mmol/L (3.5-5.1); Sodium 138 mmol/L (136-145); Total Protein 6.9 g/dL (6.4-8.2)
[2023-11-18 09:16] LABS: Hemoglobin A1C 5.6 % (<5.7)
[2023-11-18 09:20] LABS: Lactic Acid Reflex 3.8 mmol/L (0.4-2.0)
[2023-11-18 09:44] LABS: Thyroid Stimulating Hormone 0.58 uIU/mL (0.36-3.74)
[2023-11-18] MEDS: BUDESONIDE/FORMOTEROL (*SP) 160-4.5 MCG 6 GM INH 2 PUFF INHALATION (09:50)
[2023-11-18] MEDS: UMECLIDINIUM BROMIDE 62.5 MCG ELLIPTA 1 PUFF INHALATION (09:51)
[2023-11-18] MEDS: CELECOXIB 100 MG CAPSULE 200 MG PO (09:53)
[2023-11-18] MEDS: PANTOPRAZOLE 40 MG TABLET PO (09:53)
[2023-11-18] MEDS: amLODIPine BESYLATE 5 MG TABLET 10 MG PO (09:53)
[2023-11-18] MEDS: allopurinoL 100 MG TABLET PO (09:53)
[2023-11-18] MEDS: TAMSULOSIN HCL 0.4 MG CAPSULE PO (09:53)
[2023-11-18] MEDS: ENOXAPARIN 40 MG/0.4 ML SYRINGE SUB-Q (09:54)
[2023-11-18] MEDS: AZITHROMYCIN 250 MG TABLET 500 MG PO (11:24)
[2023-11-18] MEDS: FUROSEMIDE 20 MG TABLET PO (11:25)
[2023-11-18] MEDS: FERROUS SULFATE 325 MG TABLET DR BY MOUTH (11:25)
[2023-11-18] MEDS: ASPIRIN 81 MG ENTERIC TABLET PO (11:25)
[2023-11-18 11:56] LABS: Glucose Point of Care 401 mg/dl (65-105)
[2023-11-18] MEDS: INSULIN HUMAN LISPRO (*BKC) 1,000 UNITS/10 ML VIAL SUB-Q (12:02)
[2023-11-18] MEDS: INSULIN HUMAN LISPRO (*BKC) 1,000 UNITS/10 ML VIAL 6 UNITS SUB-Q (12:07)
[2023-11-18] MEDS: HYDROcodone/acetaminophen (*CRX) 5-325 MG TABLET 1 TAB PO ×2 (13:24→20:56)
[2023-11-18 17:09] LABS: Glucose Point of Care 160 mg/dl (65-105)
[2023-11-18] MEDS: bisoproloL fumarate 5 MG TABLET PO (20:54)
[2023-11-18 20:55] LABS: Glucose Point of Care 196 mg/dl (65-105)
[2023-11-18] MEDS: LOSARTAN POTASSIUM 50 MG TABLET 100 MG PO (20:55)
[2023-11-19] VITALS: BP 136/66; PULSE 73; RESP 18; TEMP 36; O2SAT 95
[2023-11-19] MEDS: methylPREDNISolone SOD SUCC 40 MG VIAL IV PUSH (06:21)
[2023-11-19 07:30] LABS: Basophils Absolute Auto 0.01 K/mm3 (0.00-0.10); Basophils Percent Auto 0.1 % (0.0-1.0); Hemoglobin 10.9 g/dL (12.4-15.3); Immature Granulocyte Percent A 0.8 % (0.0-0.0); Lymphocytes Absolute Auto 0.89 K/mm3 (1.10-4.50); Lymphocytes Percent Auto 7.1 % (18.0-42.0); Mean Corpuscular HGB Conc 32.1 g/dL (32-36); Mean Corpuscular Hemoglobin 30.4 pg (27.0-31.0); Mean Corpuscular Volume 94.7 fL (78.0-102.0); Monocytes Absolute Auto 0.68 K/mm3 (0.10-0.90); Monocytes Percent Auto 5.4 % (2.0-11.0); Neutrophils Percent Auto 86.6 % (50.0-70.0); Platelet Count Result 114 K/mm3 (150-420); Red Blood Count 3.59 M/mm3 (4.70-6.10); Red Cell Distribution Width 14.3 % (11.6-14.4); White Blood Count 12.5 K/mm3 (4.8-10.8)
[2023-11-19 07:53] LABS: Lactic Acid Reflex 1.4 mmol/L (0.4-2.0)
[2023-11-19 07:56] LABS: Alanine Aminotransferase 42 U/L (16-63); Albumin Level 3.1 g/dL (3.4-5.0); Alkaline Phosphatase 109 U/L (46-116); Anion Gap 10 mmol/L (4-12); Aspartate Amino Transferase 40 U/L (15-37); Bilirubin,Total 0.5 mg/dL (0.00-1.00); Blood Urea Nitrogen 27 mg/dL (7-18); Calcium 8.5 mg/dL (8.5-10.1); Carbon Dioxide 25 mmol/L (21-32); Chloride 105 mmol/L (98-108); Estimated CRCL calculation 59 ml/min; Estimated Glomerular Filt Rate > 60; Glucose 193 mg/dL (70-99); Magnesium 2.1 mg/dL (1.8-2.4); Osmolality Calculated 300 mOsm/kg (285-295); Potassium 4.6 mmol/L (3.5-5.1); Sodium 140 mmol/L (136-145); Total Protein 6.3 g/dL (6.4-8.2)
[2023-11-19 08:00] VITALS: BP 151/68; PULSE 56; RESP 20; TEMP 36; O2SAT 93
[2023-11-19 08:03] LABS: Glucose Point of Care 176 mg/dl (65-105)
[2023-11-19] MEDS: BUDESONIDE/FORMOTEROL (*SP) 160-4.5 MCG 6 GM INH 2 PUFF INHALATION (08:51)
[2023-11-19] MEDS: UMECLIDINIUM BROMIDE 62.5 MCG ELLIPTA 1 PUFF INHALATION (08:52)
[2023-11-19] MEDS: AZITHROMYCIN 250 MG TABLET 500 MG PO (08:52)
[2023-11-19] MEDS: PANTOPRAZOLE 40 MG TABLET PO (08:52)
[2023-11-19] MEDS: ENOXAPARIN 40 MG/0.4 ML SYRINGE SUB-Q (08:52)
[2023-11-19] MEDS: TAMSULOSIN HCL 0.4 MG CAPSULE PO (08:52)
[2023-11-19] MEDS: CELECOXIB 100 MG CAPSULE 200 MG PO (08:52)
[2023-11-19] MEDS: amLODIPine BESYLATE 5 MG TABLET 10 MG PO (08:52)
[2023-11-19] MEDS: FERROUS SULFATE 325 MG TABLET DR BY MOUTH (08:52)
[2023-11-19] MEDS: ASPIRIN 81 MG ENTERIC TABLET PO (08:53)
[2023-11-19] MEDS: allopurinoL 100 MG TABLET PO (08:53)
[2023-11-19] MEDS: FUROSEMIDE 20 MG TABLET PO (08:53)
[2023-11-19] MEDS: HYDROcodone/acetaminophen (*CRX) 5-325 MG TABLET 1 TAB PO (09:52)
[2023-11-19 12:05] LABS: Glucose Point of Care 245 mg/dl (65-105)
[2023-11-19] MEDS: INSULIN HUMAN LISPRO (*BKC) 1,000 UNITS/10 ML VIAL SUB-Q (12:07)
--- NOTE | 2023-11-19 12:07 | PM.DS ---
DS: Admitting Diagnosis Discharge Date 11/19/2023 Admitting Diagnosis Sepsis, elevated lactic acid level, elevated D-dimer COPD exacerbation, BPH, GERD, type 2 diabetes mellitus, hypertension, history of lung cancer, hyperlipidemia, valve disease DS: Discharge Diagnosis Discharge Diagnosis (1) COPD exacerbation: Code(s): J44.1 - Chronic obstructive pulmonary disease with (acute) exacerbation Status: Acute Assessment and Plan: acute exacerbation COPD (2) Elevated lactic acid level: Code(s): R79.89 - Other specified abnormal findings of blood chemistry Status: Acute Assessment and Plan: patient is metformin at home and this may have contributed to elevated lactic acid especially in light of alcohol intake with round of golf possibly including some dehydration compartment. 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, unspecified Status: Chronic Assessment and Plan: Repaired and recently re-evaluated by Cardiology deemed to be stable (4) Elevated d-dimer: Code(s): R79.89 - Other specified abnormal findings of blood chemistry Status: Acute Assessment and Plan: CTA negative for PE (5) History of lung cancer: Code(s): Z85.118 - Personal history of other malignant neoplasm of bronchus and lung Status: Chronic Assessment and Plan: stable right lower lobe nodules, recent CT scans chest abdomen and pelvis by Oncology deemed stable per patient report (6) Hyperlipidemia: Code(s): E78.5 - Hyperlipidemia, unspecified Status: Chronic (7) BPH (benign prostatic hyperplasia): Code(s): N40.0 - Benign prostatic hyperplasia without lower urinary tract symptoms Status: Chronic (8) GERD (gastroesophageal reflux disease): Code(s): K21.9 - Gastro-esophageal reflux disease without esophagitis Status: Chronic (9) Type 2 diabetes mellitus: Code(s): E11.9 - Type 2 diabetes mellitus without complications Status: Chronic Assessment and Plan: A1c of 5.6, elevated glucose levels while in the hospital likely a combination steroid use and response to illness (10) Hypertension: Code(s): I10 - Essential (primary) hypertension Status: Chronic (11) Fever: Code(s): R50.9 - Fever, unspecified Status: Resolved Assessment and Plan: sepsis less likely as a clear bacterial source of infection was never found. Fever resolved, possible viral illness?? Plan Blood cultures will be monitored, discharged with prescription for 2 more days of azithromycin and 3 more days of prednisone DS: Summary Hospital Course Reason for hospitalization: dyspnea, concern for sepsis Hospital Course: This is an 83-year-old male patient a past history of/COPD lung cancer with prior left upper lobectomy, hypertension type 2 diabetes, GERD and paroxysmal was admitted after he was evaluated in the emergency department for dyspnea. Patient reports that he had played 9 holes of golf and when out to dinner and while at dinner he developed severe chills and worsening breathing and when he got home his breathing continued to worsen so he went to the emergency department. In the ER he had elevated white blood cell count, elevated lactic acid and was admitted for presumed sepsis on IV antibiotics. Patient does have a past history of Enterococcus bacteremia that was presumed to be of urologic source that damaged his mitral valve. Patient reports that he had a new procedure completed at [facility] in which his valve was clipped through femoral catheter approach. 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 Patient had CT scans done at that time of chest abdomen and pelvis to survey for return of cancer and was told that everything looked good. Thus, the noted right lower lobe nodules have been tract by Oncology and felt to be stable. caitlyn
--- NOTE | 2023-11-19 14:05 | PC.NURSE ---
Discharge instructions reviewed with patient. Patient assisted into wheelchair with all belongings. Transported off floor to private vehicle.
--- NOTE | 2023-11-21 10:24 | PC.NURSE ---
I spoke with Vlad today for his dc call back, concerned regarding final blood culture report, not back at this time, advised will call to let him know when the final is resulted, to see Dr Carpio today in follow up.
--- NOTE | 2023-11-24 09:02 | PC.NURSE ---
Patient contacted regarding no growth for blood cultures, final report on 11/24/23
== END 2023-11-19 14:05 | disposition home or self-care (01) ==
LOC: CHSED 11-18 00:23 → CHS2ND 11-18 07:28
PROVIDERS: Nurse Practitioner; Nurse Practitioner Acute Care; Admitting Provider Internal Medicine; Emergency Provider Emergency Medicine; PCP Internal Medicine; Visit Provider Internal Medicine
DX: J44.1 Chronic obstructive pulmonary disease with (acute) exacerbation (principal); I48.0 Paroxysmal atrial fibrillation; I25.10 Atherosclerotic heart disease of native coronary artery without angina pectoris; I10 Essential (primary) hypertension; K21.9 Gastro-esophageal reflux disease without esophagitis; E78.5 Hyperlipidemia, unspecified; E11.9 Type 2 diabetes mellitus without complications; N40.0 Benign prostatic hyperplasia without lower urinary tract symptoms; R79.89 Other specified abnormal findings of blood chemistry; Z20.822 Contact with and (suspected) exposure to COVID-19; Z85.118 Personal history of other malignant neoplasm of bronchus and lung; Z85.51 Personal history of malignant neoplasm of bladder; Z87.891 Personal history of nicotine dependence; Z95.5 Presence of coronary angioplasty implant and graft; Z96.653 Presence of artificial knee joint, bilateral; Z79.82 Long term (current) use of aspirin
CPT/HCPCS: 36415; 71045; 71275; 80053; 81001; 82948; 83036; 83605; 83735; 83880; 84145; 84443; 84484; 85025; 85380; 85610; 85730; 87040; 87637; 93005; 94640; 96361; 96365; 96366; 96367; 96372; 96375; 96376; 99285; A9270; G0378; J0456; J0696; J1650; J1815; J2270; J2919; J3475; J7030; Q9967

== ENCOUNTER 2024-06-18 17:06 | Emergency (ER) | payer MEDICARE, OTHER, SELFPAY ==
[2024-06-18 17:06] VITALS: BP 119/60; PULSE 70; RESP 20; TEMP 36.9; O2SAT 96
--- NOTE | 2024-06-18 17:44 | ED.GENADULT ---
HPI - General Adult General Chief complaint: Urogenital-Male Stated complaint: urinary retention; blood in catheter Time Seen by Provider: 06/18/24 17:43 Source: patient and family Mode of arrival: ambulatory Limitations: no limitations History of Present Illness HPI narrative: 84 YEARS OLD WHITE MALE CAME TO THE ED WITH HIS FROM HOME BY PRIVATE CAR COMPLAINING OF THAT THE FALLON CATHETER IS NOT DRAINING. PATIENT IS TELLING ME THAT AT 2:00 A.M. PATIENT WITH CUP AND WAS NOT ABLE TO URINATE. WENT TO HIS UROLOGIST AT [facility] TODAY AND THE NURSE PRACTITIONER WAS ABLE TO MANAGE TO PLACE A FALLON CATHETER IN WHICH WAS DRAINING BLOOD AT THAT TIME. PATIENT WAS ADVISED TO USE NORMAL SALINE TO IRRIGATE THE CATHETER. PATIENT HAVE NO ACCESS TO NORMAL SALINE. FEW HOURS AFTER DISCHARGING FROM HIS UROLOGIST OFFICE PATIENT, THE FALLON CATHETER IS NOT DRAINING. WITH SUPRAPUBIC TENDERNESS. Related Data Home Medications Medication Instructions Recorded Confirmed albuterol sulfate 1.25 mg/3 mL 1.25 mg continuous nebulization 05/13/22 11/17/23 solution for nebulization PRN PRN Shortness Of Breath albuterol sulfate 90 mcg/actuation 2 puff inhalation PRN PRN Wheezing 05/13/22 11/17/23 aerosol inhaler (Ventolin HFA) allopurinol 100 mg tablet 100 mg PO DAILY 05/13/22 11/17/23 amlodipine 5 mg tablet 10 mg PO DAILY 05/13/22 11/17/23 bisoprolol fumarate 5 mg tablet 5 mg PO HS 05/13/22 11/17/23 budesonide-formoterol HFA 160 2 puff inhalation DAILY 05/13/22 11/17/23 mcg-4.5 mcg/actuation aerosol inhaler (Symbicort) celecoxib 200 mg capsule 200 mg PO DAILY 05/13/22 11/17/23 dulaglutide 4.5 mg/0.5 mL 4.5 mg subcut WEEKLY 05/13/22 11/17/23 subcutaneous pen injector (Trulicity) evolocumab 140 mg/mL subcutaneous 140 mg subcut MONTHLY 05/13/22 11/17/23 pen injector (Repatha SureClick) glimepiride 2 mg tablet 3 mg PO DAILY 05/13/22 11/17/23 losartan 100 mg tablet 100 mg PO HS 05/13/22 11/17/23 metformin 500 mg tablet,extended 2,000 mg PO DAILY 05/13/22 11/17/23 release 24 hr tamsulosin 0.4 mg capsule 0.4 mg PO DAILY 05/13/22 11/17/23 tiotropium bromide 18 mcg capsule 1 cap inhalation DAILY 05/13/22 11/17/23 with inhalation device (Spiriva with HandiHaler) hydrocodone 5 mg-acetaminophen 325 1 tablet PO QID PRN Pain 06/16/22 11/17/23 mg tablet aspirin 81 mg tablet 81 mg PO DAILY 11/18/23 11/18/23 ferrous sulfate 325 mg (65 mg 325 mg PO DAILY 11/18/23 11/18/23 iron) tablet furosemide 20 mg tablet (Lasix) 20 mg PO DAILY 11/18/23 11/18/23 pantoprazole 40 mg tablet,delayed 40 mg PO DAILY 11/18/23 11/18/23 release (Protonix) Allergies Allergy/AdvReac Type Severity Reaction Status Date / Time No Known Allergies Allergy Unknown Verified 11/17/23 22:45 Review of Systems Review of Systems: All systems reviewed & are unremarkable except as noted in HPI and below PMFSH Past Medical History Medical History Bladder tumor BPH (benign prostatic hyperplasia) COPD (chronic obstructive pulmonary disease) GERD (gastroesophageal reflux disease) History of lung cancer Hyperlipidemia Hypertension Paroxysmal A-fib Type 2 diabetes mellitus Surgical History Surgical History H/O mitral valve repair History of knee replacement History of lobectomy of lung Hx of cholecystectomy Social History Social History Years smoked: 40 Smoking status: Former smoker Tobacco type: cigarettes Second hand tobacco smoke exposure: No Smoking end date: 12/23/03 Alcohol intake: current Drinks per week: 4 Substance use: never Do You Feel Safe in your Home?: Yes Lack of Transportation: No Lack of Food: Never True Current Housing: I Have Housing Concerned About Future Housing: No Difficulty Paying Gas/Electric Bills: No Difficulty Paying for Meds: No Currently Unemployed: No Education: Master's Degree or Higher Difficulty w/ Childcare or Family Care: No Spiritual care concerns: Yes (Mormonism) Exam Narrative: GENERAL APPEARANCE: WELL-DEVELOPED, WELL-NOURISHED SKIN: NORMAL COLOR ABDOMEN: SOFT, SUPRAPUBIC TENDERNESS, NO ORGANOMEGALY, QUIET BOWEL SOUNDS FALLON CATHETER IN PLACE, DRAINING NO URINE. VASCULAR: NORMAL PERIPHERAL PULSES, NORMAL CAPILLARY REFILL. MUSCULOSKELETAL: NORMAL RANGE OF MOTION, NONTENDER BACK NEUROLOGIC: ALERT AND ORIENTED ?3, SYSTEMS ENGINEERING MANAGER IS NORMAL TESTED, NO GROSS MOTOR DEFICIT , Course Vital Signs Vital signs: Vital Signs Temperature 36.9 C 06/18/24 17:06 Pulse Rate 70 06/18/24 17:06 Respiratory Rate 20 06/18/24 17:06 Blood Pressure 119/60 06/18/24 17:06 Pulse Oximetry 96 06/18/24 17:06 Oxygen Delivery Room Air 06/18/24 17:06 Temperature 36.9 C 06/18/24 17:06 Pulse Rate 70 06/18/24 17:06 Respiratory Rate 20 06/18/24 17:06 Blood Pressure 119/60 06/18/24 17:06 Pulse Oximetry 96 06/18/24 17:06 Oxygen Delivery Room Air 06/18/24 17:06 Medical Decision Making MDM Narrative Medical decision making narrative: PATIENT HAD FALLON CATHETER EARLY TODAY, AT HOME WAS NOT DRAINING, CAME TO OUR ED, 1500 NORMAL SALINE IRRIGATION, WORKING WELL, NO RETAINING URINE, SUPRAPUBIC PAIN RESOLVED. Vital Signs Vital Signs: Vital Signs Temperature 36.9 C 06/18/24 17:06 Pulse Rate 70 06/18/24 17:06 Respiratory Rate 20 06/18/24 17:06 Blood Pressure 119/60 06/18/24 17:06 Pulse Oximetry 96 06/18/24 17:06 Oxygen Delivery Room Air 06/18/24 17:06 Temperature 36.9 C 06/18/24 17:06 Pulse Rate 70 06/18/24 17:06 Respiratory Rate 20 06/18/24 17:06 Blood Pressure 119/60 06/18/24 17:06 Pulse Oximetry 96 06/18/24 17:06 Oxygen Delivery Room Air 06/18/24 17:06 Critical Care Time Critical Care Time Critical Care Time: No Discharge Plan Discharge Clinical Impression: Urinary retention with incomplete bladder emptying, Complication, blocked Fallon catheter Patient Disposition: Home, Self-Care Condition: Improved Instructions: Urinary Retention in Men (ED), Fallon Catheter Placement and Care (ED), How to Change a Catheter Drainage Bag (DC) Additional Instructions: RETURN IF SYMPTOMS ARE WORSENING , CALL UROLOGIST FOR APPOINTMENT, TAKE TYLENOL NEEDED FOR ACHES AND PAIN, CONTINUE HOME MEDICATIONS. Prescriptions: No Action celecoxib 200 mg capsule 200 mg PO DAILY albuterol sulfate 1.25 mg/3 mL solution for nebulization 1.25 mg continuous nebulization PRN PRN (Reason: Shortness Of Breath) amlodipine 5 mg tablet 10 mg PO DAILY allopurinol 100 mg tablet 100 mg PO DAILY glimepiride 2 mg tablet 3 mg PO DAILY bisoprolol fumarate 5 mg tablet 5 mg PO HS tamsulosin 0.4 mg capsule 0.4 mg PO DAILY albuterol sulfate [Ventolin HFA] 90 mcg/actuation HFA aerosol inhaler 2 puff INHALATION PRN PRN (Reason: Wheezing) losartan 100 mg tablet 100 mg PO HS metformin 500 mg tablet extended release 24 hr 2,000 mg PO DAILY tiotropium bromide [Spiriva with HandiHaler] 18 mcg capsule, w/inhalation device 1 cap INHALATION DAILY budesonide-formoterol [Symbicort] 160-4.5 mcg/actuation HFA aerosol inhaler 2 puff INHALATION DAILY Repatha SureClick 140 mg/mL pen injector 140 mg SUBCUT MONTHLY Trulicity 4.5 mg/0.5 mL pen injector 4.5 mg SUBCUT WEEKLY hydrocodone-acetaminophen 5-325 mg tablet 1 tablet PO QID PRN (Reason: Pain) aspirin 81 mg Tablet 81 mg PO DAILY furosemide [Lasix] 20 mg Tablet 20 mg PO DAILY pantoprazole [Protonix] 40 mg Tablet,Delayed Release (Dr/Ec) 40 mg PO DAILY ferrous sulfate 325 mg (65 mg iron) Tablet 325 mg PO DAILY azithromycin [Zithromax] 250 mg Tablet 500 mg PO DAILY Qty: 2 0RF prednisone 50 mg tablet 50 mg PO DAILY Qty: 3 0RF Follow-up/Referrals: Paul Carpio MD [Primary Care Provider] -
--- NOTE | 2024-06-18 18:04 | PC.NURSE ---
Urine clots present at tip of penis around catheter on arrival. Pt penaloza irrigated per ERP order and irrigated w/ approx 1500ml and pt still has bright red urine w/ irrigation and small clots noted.
--- NOTE | 2024-06-18 18:19 | PC.NURSE ---
ERP speaking w/ pt and about need for urologist referral, f/u, or transfer. Decision to take pt back home as long as penaloza cath is draining. No new clots noted in bag, but bright red blood is noted and slowly draining. Pt wants to go home and return to [facility] if needed. Pt has no pain at this time.
[2024-06-18 18:45] VITALS: BP 116/89; PULSE 74; RESP 18; TEMP 36.7; O2SAT 97
== END 2024-06-18 18:45 | disposition home or self-care (01) ==
PROVIDERS: Emergency Provider Emergency Medicine; PCP Internal Medicine
DX: T83.091A Other mechanical complication of indwelling urethral catheter, initial encounter (principal); R33.9 Retention of urine, unspecified; I10 Essential (primary) hypertension; I48.0 Paroxysmal atrial fibrillation; E11.9 Type 2 diabetes mellitus without complications; J44.9 Chronic obstructive pulmonary disease, unspecified; Z85.118 Personal history of other malignant neoplasm of bronchus and lung; Z87.891 Personal history of nicotine dependence
CPT/HCPCS: 99282

== ENCOUNTER 2024-11-15 13:01 | Outpatient (RCR) | payer MEDICARE, OTHER, SELFPAY ==
--- NOTE | 2024-11-15 14:05 | OPREHPOC ---
Outpatient Therapy Plan of Care This is a Multidisciplinary Plan of Care that may contain components documented by all disciplines (PT, OT, and ST.) PT Problem 1 PT Problem #1 Knowledge Deficit PT Goal 1 Goal / Goal Update The patient will be independent in a home exercise program. Target Visit 4 PT Problem 2 PT Problem #2 Pain PT Goal 1 Goal / Goal Update The patient will report no greater than 4/10 low back pain with walking 100 feet. Target Visit 10 PT Problem 3 PT Problem #3 Impaired Functional Mobility PT Goal 1 Goal / Goal Update The patient will demonstrate 25% or less self perceived disability per the Back Index questionnaire. The patient will ambulate 600 feet during the 6 minute walk test with 4/10 or less low back pain to improve community ambulation. Target Visit 10
--- NOTE | 2024-11-15 14:05 | PTOPEVAL1 ---
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 He has noticed a decline in his function and increase in his pain the last couple years. He is only able to walk approximately 50 feet without pain. He is using a cane for ambulation. He is also limited with standing to less than 10 minutes and has difficulty lifting. He reports he has good and bad days. He has a massage chair that helps with his pain and he uses hydrocodone when his pain gets severe. He notes pain is across the lower back and will radiate to the right upper hip. He denies numbness and tingling as well. He has not had any treatment for his back pain in the past but was referred to pain management. He will be having a MRI on 11/17/24. He was also referred to PT. Reported Pain Level Pain Score 4: Self Report Assessment PT Clinical Summary Dhiraj Jacobson presents with chronic low back pain due to a spondylolithesis at L5-S1 that was present since . He has had a worsening of symptoms over the last 2 years and now he has difficulty standing for more than 10 minutes, walking for more than 50 feet, and lifting. He demonstrates decreased lumbar AROM, pain with lateral flexion of the lumbar spine, decreased core and bilateral hip strength, and decreased hamstring flexibility. He will benefit from skilled PT to address these limitations. Plan of Care Interventions Electrical Stimulation,Hot Pack/Cold Pack,Manual Therapy,Neuro Re-education,Patient/Caregiver Education,Therapeutic Activities,Therapeutic Exercise PT Services Indicated Yes Treatment Frequency and 2 times a week for 10 visits Duration These treatments will address the objective and functional deficits as defined above. The patient will be advanced safely and appropriately in order for the patient to progress towards his/her prior level of function. Additional exercises will be introduced and as well as a comprehensive home exercise program upon discharge, if needed, ?to ensure carryover of functional gains achieved in the clinic. This treatment plan has been reviewed and agreement upon by the patient.
--- NOTE | 2024-11-21 10:39 | PCPTNOTE ---
Patient called & cancelled scheduled appointment this date due to having an accident and not going to make it in. -Lynnette Coy, PT
--- NOTE | 2025-02-19 08:42 | PCPTNOTE ---
Pt was last seen on 12/10/24 and has not returned. He is discharged from skilled PT. -Lynnette Coy, PT
== END 2025-02-13 23:59 | disposition home or self-care (01) ==
LOC: CHSPT 13:01
PROVIDERS: Visit Provider Nurse Practitioner Family
DX: M54.16 Radiculopathy, lumbar region (principal)
CPT/HCPCS: 97014; 97110; 97161; 97530; G0283

== ENCOUNTER 2024-11-17 10:44 | Outpatient (CLI) | payer MEDICARE, OTHER, SELFPAY ==
--- NOTE | ~2024-11-17 | MR_ITS ---
MRI of the lumbar spine Clinical History: Back pain, radiculopathy Technique: Axial T2-weighted images, and sagittal T1-weighted, T2-weighted, and T2 fat-sat images wer e acquired. COMPARISON: 11/07/2021 Findings: Bilateral L5 pars interarticularis defects are present, with 18 mm anterolisthesis of L5 ov er S1, and fusion across the L5-S1 disc space. No acute fracture evident. No bone marrow signal abnor mality seen. At L1-L2, there is no disc bulge or herniation. There is moderate to advanced facet arthropathy. No c entral canal stenosis or neural foraminal narrowing. At L2-L3, there is disc bulge and advanced facet arthropathy, with moderate to severe spinal canal st enosis/thecal sac compression. There is moderate to advanced left neural foraminal narrowing, and mod erate right neural foraminal narrowing. At L3-L4, there is disc bulge and severe facet arthropathy. There is moderate to severe spinal canal stenosis/thecal sac compression. There is moderate to advanced right neural foraminal narrowing, and moderate left neural foraminal narrowing. At L4-L5, there is diffuse disc bulge with severe facet arthropathy. There is mild central canal sten osis. There is severe bilateral neural foraminal compromise. At L5-S1, there is disc bulge/uncovering with severe facet arthropathy and severe spinal canal stenos is. There is severe bilateral neural foraminal compromise. Paravertebral soft tissues are unremarkable. Impression: Chronic L5 pars interarticularis defects with 18 mm anterolisthesis of L5 over S1, and fusion across the L5-S1 disc space. Severe degenerative spondylitic changes at L2-L3, L3-L4, L4-L5, and L5-S1, as detailed above. Reviewed, dictated and finalized at [facility]. Impression: Chronic L5 pars interarticularis defects with 18 mm anterolisthesis of L5 over S1, and fusion across the L5-S1 disc space. Severe degenerative spondylitic changes at L2-L3, L3-L4, L4-L5, and L5-S1, as d etailed above.
== END 2024-11-17 10:45 | disposition home or self-care (01) ==
LOC: MICIMG 10:44
PROVIDERS: PCP Internal Medicine; Visit Provider Nurse Practitioner Family
DX: M51.86 Other intervertebral disc disorders, lumbar region (principal); M43.17 Spondylolisthesis, lumbosacral region; M47.896 Other spondylosis, lumbar region; M47.897 Other spondylosis, lumbosacral region
CPT/HCPCS: 72148

== ENCOUNTER 2024-12-05 14:31 | Outpatient (CLI) | payer MEDICARE, OTHER, SELFPAY ==
[2024-12-05] MEDS: IRON SUCROSE COMPLEX 300 MG in SODIUM CHLORIDE 0.9% IV 250 ML 125 MG IVPB (14:45)
[2024-12-05 14:50] VITALS: BP 153/59; PULSE 69; RESP 18; TEMP 36.7; O2SAT 98
[2024-12-05 15:02] VITALS: BMI 34.4
--- NOTE | 2024-12-05 17:09 | PC.NURSE ---
Patient's IV therapy completed. Patient tolerated well. IV cath removed intact. Pressure applied to site, gauze and tape applied. Patient instructed on site care. Patient able to ambulate to vehicle.
== END 2024-12-05 14:32 | disposition home or self-care (01) ==
LOC: CHSTREATRM 14:32
PROVIDERS: PCP Internal Medicine; Visit Provider Internal Medicine
DX: D50.9 Iron deficiency anemia, unspecified (principal)
CPT/HCPCS: 96365; 96366; J1756; J7050

== ENCOUNTER 2024-12-19 14:23 | Outpatient (CLI) | payer MEDICARE, OTHER, SELFPAY ==
--- NOTE | 2024-12-19 14:33 | PC.NURSE ---
Patient presents for outpatient iron infusion, to 201, call light in reach.
[2024-12-19 14:34] VITALS: BMI 33.0
[2024-12-19 14:35] VITALS: BP 114/57; PULSE 71; RESP 18; TEMP 37; O2SAT 95
[2024-12-19] MEDS: IRON SUCROSE COMPLEX 300 MG in SODIUM CHLORIDE 0.9% IV 250 ML 125 MG IVPB (14:48)
== END 2024-12-19 16:45 | disposition home or self-care (01) ==
PROVIDERS: PCP Internal Medicine; Visit Provider Internal Medicine
DX: D50.9 Iron deficiency anemia, unspecified (principal)
CPT/HCPCS: 96365; 96366; 96367; J1756; J7050

== ENCOUNTER 2025-01-02 14:25 | Outpatient (CLI) | payer MEDICARE, OTHER, SELFPAY ==
--- NOTE | 2025-01-02 14:35 | PC.NURSE ---
Here for OP therapy
[2025-01-02 14:45] VITALS: BP 108/55; PULSE 60; RESP 18; TEMP 37; O2SAT 96
[2025-01-02] MEDS: IRON SUCROSE COMPLEX 300 MG in SODIUM CHLORIDE 0.9% IV 250 ML 125 MG IVPB (14:54)
[2025-01-02 15:01] VITALS: BMI 32.2
--- NOTE | 2025-01-02 17:00 | PC.NURSE ---
Discharge to home, denies pain, no needs, understands discharge instructions
== END 2025-01-02 17:00 | disposition home or self-care (01) ==
PROVIDERS: PCP Internal Medicine; Visit Provider Internal Medicine
DX: D50.9 Iron deficiency anemia, unspecified (principal)
CPT/HCPCS: 96365; 96366; J1756; J7050

== ENCOUNTER 2025-01-25 16:20 | Outpatient (CLI) | payer MEDICARE, OTHER, SELFPAY ==
--- NOTE | ~2025-01-25 | US_ITS ---
EXAMINATION: US venous doppler [facility] DATE: 01/25/2025 17:39 INDICATION: Left leg swelling . TECHNIQUE: Grayscale images without and with compression and Doppler images of the left lower extremi ty veins were obtained. COMPARISON: None FINDINGS: The left common femoral vein, profunda (deep) femoral vein, femoral vein, popliteal vein, peroneal v ein, posterior tibial veins, gastrocnemius vein, and greater saphenous vein are patent. Enlarged left inguinal lymph node measuring 2.2 cm in short axis diameter IMPRESSION: Patent left lower extremity veins. No evidence of deep venous thrombosis. Left inguinal lymphadenopat hy. Reviewed, dictated and finalized at location K. IMPRESSION: Patent left lower extremity veins. No evidence of deep venous thrombosis. Left inguinal lymphadenopathy.
[2025-01-25 17:56] LABS: Hematocrit 36.0 % (42.0-52.0); Hemoglobin 11.6 g/dL (14.0-18.0); Immature Platelet Fraction Pct 9.0 % (0.9-11.2); Mean Corpuscular HGB Conc 32.2 g/dl (32-36); Mean Corpuscular Hemoglobin 28.9 pg (26-34); Mean Corpuscular Volume 89.6 fl (80-100); Platelet Count Result 106 k/mm3 (150-375); Red Blood Count 4.02 M/mm3 (4.6-6.20); White Blood Count 11.7 K/mm3 (4.5-10.0)
[2025-01-25 18:16] LABS: Alanine Aminotransferase 29 U/L (6-50); Albumin Level 3.9 g/dL (3.5-5.1); Alkaline Phosphatase 106 U/L (38-126); Anion Gap 11 mmol/L (4-12); Aspartate Amino Transferase 50 U/L (17-59); Bilirubin,Total 1.1 mg/dL (0.2-1.3); Blood Urea Nitrogen 22 mg/dL (9-20); Calcium 9.1 mg/dL (8.4-10.2); Carbon Dioxide 21 mmol/L (22-30); Chloride 102 mmol/L (98-107); Estimated Glomerular Filt Rate 60; Glucose 113 mg/dL (65-110); Potassium 4.0 mmol/L (3.4-5.0); Sodium 134 mmol/L (137-145); Total Protein 7.3 g/dL (6.3-8.2)
[2025-01-25 18:46] LABS: CRP 15.1 mg/dL (<1.0)
== END 2025-01-25 16:21 | disposition home or self-care (01) ==
PROVIDERS: PCP Internal Medicine; Visit Provider Internal Medicine
DX: R59.0 Localized enlarged lymph nodes (principal); M79.89 Other specified soft tissue disorders; M79.662 Pain in left lower leg
CPT/HCPCS: 36415; 80053; 85027; 85055; 85652; 86140; 93971

== ENCOUNTER 2025-02-21 13:14 | Outpatient (CLI) | payer MEDICARE, OTHER, SELFPAY ==
--- NOTE | ~2025-02-21 | US_ITS ---
EXAMINATION: US venous doppler [facility] DATE: 02/21/2025 13:45 INDICATION: Left groin cellulitis and leg swelling. TECHNIQUE: Grayscale ultrasound images without and with compression and Doppler ultrasound images of the left lower extremity veins were obtained. COMPARISON: 01/25/2025. FINDINGS: The visualized portions of left common femoral vein, profunda (deep) femoral vein, femoral vein, popl iteal vein, peroneal veins, posterior tibial veins, and greater saphenous vein outflow are patent. IMPRESSION: 1. No deep venous thrombosis. Reviewed, dictated and finalized at location A.
== END 2025-02-21 13:15 | disposition home or self-care (01) ==
LOC: CHSIMG 13:18
PROVIDERS: PCP Internal Medicine; Visit Provider Internal Medicine
DX: L03.116 Cellulitis of left lower limb (principal); M79.89 Other specified soft tissue disorders
CPT/HCPCS: 93971

== ENCOUNTER 2025-04-11 12:18 | Outpatient (CLI) | payer MEDICARE, OTHER, SELFPAY ==
--- NOTE | ~2025-04-11 | US_ITS ---
LEFT LOWER EXTREMITY VENOUS DUPLEX Clinical History: L Groin Cellulitis leg swelling COMPARISON: 02/21/2025 TECHNIQUE: Grayscale, color, duplex/spectral Doppler sonography left leg FINDINGS: Left leg common femoral, femoral, popliteal, and calf veins compressible and color Doppler patent. Normal augmentation with distal compression. No internal echoes. Inguinal lymph node as before. Recommend clinical surveillance. IMPRESSION: 1. No left leg DVT. Reviewed, dictated and finalized at location R. IMPRESSION: 1. No left leg DVT.
--- NOTE | ~2025-04-11 | XR_ITS ---
EXAMINATION: XR chest 2V, 04/11/2025 13:00 CDT HISTORY: cough COMPARISON: No comparisons available. Technique: 2 views obtained. Findings: There are chronic changes bilaterally with large right upper lobe infiltrate, there are cystic focus is noted in the right upper lobe which may reflect underlying bronchiectasis but incompletely characterized. Small left upper lobe infiltrate noted. No pneumothorax. Heart is normal size. Mediastinal and hilar contours are within normal limits. Bony thorax no acute abnormality. Impression: Probable bronchopneumonia superimposed on chronic lung disease. CT chest is suggested to further evaluate. Reviewed, dictated and finalized at location P. Impression: Probable bronchopneumonia superimposed on chronic lung disease. CT chest is sug gested to further evaluate.
[2025-04-11 13:30] LABS: Hematocrit 37.4 % (37.0-46.0); Hemoglobin 12.3 g/dL (12.4-15.3); Mean Corpuscular HGB Conc 32.9 g/dL (32-36); Mean Corpuscular Hemoglobin 31.3 pg (27.0-31.0); Mean Corpuscular Volume 95.2 fL (78.0-102.0); Platelet Count Result 185 K/mm3 (150-420); Red Blood Count 3.93 M/mm3 (4.70-6.10); White Blood Count 12.9 K/mm3 (4.8-10.8)
[2025-04-11 13:37] LABS: Add Urine Microscopic? NO; Appearance Urine Clear (Clear); Glucose Urine UA Negative (Negative); Leukocyte Esterase Ur Negative (Negative); Nitrate Urine Negative (Negative); Specific Grav Ur <= 1.005 (1.010-1.020)
[2025-04-11 13:48] LABS: Hemoglobin A1C 5.2 % (<5.7)
[2025-04-11 13:51] LABS: MALB Creatinine Ratio 60.1 mg/g (0-30)
[2025-04-11 13:53] LABS: Alanine Aminotransferase 27 U/L (6-50); Albumin Level 4.2 g/dL (3.5-5.1); Alkaline Phosphatase 130 U/L (38-126); Anion Gap 12 mmol/L (4-12); Aspartate Amino Transferase 41 U/L (17-59); Bilirubin,Total 2.2 mg/dL (0.2-1.3); Blood Urea Nitrogen 15 mg/dL (9-20); CRP 7.4 mg/dL (<1.0); Calcium 9.7 mg/dL (8.4-10.2); Carbon Dioxide 25 mmol/L (22-30); Chloride 98 mmol/L (98-107); Creatine Kinase 74 U/L (55-170); Estimated Glomerular Filt Rate > 60; Glucose 110 mg/dL (65-110); Iron 51 ug/dL (49-181); Osmolality Calculated 281 mOsm/kg (285-295); Potassium 4.0 mmol/L (3.4-5.0); Sodium 135 mmol/L (137-145); Total Protein 8.2 g/dL (6.3-8.2); Uric Acid 5.5 mg/dL (3.5-8.5)
[2025-04-11 13:55] LABS: Strep Group A RT-PCR NOT DETECTED (Negative)
[2025-04-11 14:01] LABS: NT Pro B Type Natriuretic Pept 614 pg/mL (19.9-100)
[2025-04-11 14:06] LABS: Influenza A QL RT-PCR Negative (Negative); Influenza B QL RT-PCR Negative (Negative); RSV RNA, RT-PCR Negative (Negative); SARS-CoV-2 RNA PCR Negative (Negative)
[2025-04-11 14:08] LABS: Procalcitonin 0.2 ng/mL
[2025-04-11 14:23] LABS: Prostate Specific Antigen 0.3 ng/mL (< OR = 4.0)
[2025-04-11 14:27] LABS: Ferritin 111.00 ng/mL (11.1-264)
[2025-04-11 14:42] LABS: Vitamin B12 > 1000.0 pg/mL (239-931)
== END 2025-04-11 12:19 | disposition home or self-care (01) ==
LOC: CHSIMG 12:20
PROVIDERS: PCP Internal Medicine; Visit Provider Internal Medicine
DX: R05.9 Cough, unspecified (principal); L03.116 Cellulitis of left lower limb; M79.89 Other specified soft tissue disorders; R91.8 Other nonspecific abnormal finding of lung field; R50.9 Fever, unspecified; R30.0 Dysuria; E78.2 Mixed hyperlipidemia; E53.8 Deficiency of other specified B group vitamins; E79.0 Hyperuricemia without signs of inflammatory arthritis and tophaceous disease; E11.65 Type 2 diabetes mellitus with hyperglycemia; I25.10 Atherosclerotic heart disease of native coronary artery without angina pectoris; D64.9 Anemia, unspecified; R97.20 Elevated prostate specific antigen [PSA]; N40.0 Benign prostatic hyperplasia without lower urinary tract symptoms; J44.1 Chronic obstructive pulmonary disease with (acute) exacerbation; R06.00 Dyspnea, unspecified
CPT/HCPCS: 36415; 71046; 80053; 81003; 82043; 82550; 82607; 82728; 83036; 83540; 83605; 83880; 84145; 84153; 84550; 85027; 85652; 86140; 87040; 87086; 87637; 87651; 93971

== ENCOUNTER 2025-04-16 13:46 | Outpatient (CLI) | payer MEDICARE, OTHER, SELFPAY ==
--- NOTE | ~2025-04-16 | CT_ITS ---
EXAMINATION:CT diagnostic chest wo con DATE: 04/16/2025 14:04 INDICATION: Pneumonia. TECHNIQUE: Computed tomography (CT) of the chest was performed without intravenous contrast. Automated exposure control and iterative reconstruction technique were employed. The dose-length product (DLP) was 258.95 mGy-cm. COMPARISON: Chest CT 11/17/2023 FINDINGS: There are airspace and groundglass opacities in right lung upper lobe with air bronchograms, consistent with pneumonia. There is mild emphysema. There is a stable 7 mm nodule in right lower lobe, likely benign. There are scattered areas of mild peripheral scarring in the lungs bilaterally. There are changes of left upper lobectomy. There is a stable 6 mm nodule in right lower lobe. No pleural effusion. The heart size is normal. There are coronary artery calcifications. There are calcifications of the aortic valve. No pericardial effusion. There is chronic enlargement of the central pulmonary arteries, consistent with pulmonary arterial hypertension. The liver demonstrates surface nodularity, consistent with cirrhosis. There is thoracic kyphosis and moderate spondylosis. IMPRESSION: 1. Right upper lobe pneumonia. 2. Mild emphysema and mild chronic interstitial lung disease. Left upper lobectomy. 3. Cirrhosis of the liver. Reviewed, dictated and finalized at location E. IMPRESSION: 1. Right upper lobe pneumonia. 2. Mild emphysema and mild chronic interstitial lung disease. Left upper lobect maureen. 3. Cirrhosis of the liver.
== END 2025-04-16 13:47 | disposition home or self-care (01) ==
LOC: CHSIMG 13:47
PROVIDERS: PCP Internal Medicine; Visit Provider Internal Medicine
DX: J18.9 Pneumonia, unspecified organism (principal); J43.9 Emphysema, unspecified; Z90.2 Acquired absence of lung [part of]; K74.60 Unspecified cirrhosis of liver
CPT/HCPCS: 71250

== ENCOUNTER 2025-04-24 16:43 | Outpatient (CLI) | payer MEDICARE, OTHER, SELFPAY ==
[2025-04-24 17:02] LABS: Hematocrit 35.9 % (37.0-46.0); Hemoglobin 11.7 g/dL (12.4-15.3); Mean Corpuscular HGB Conc 32.6 g/dL (32-36); Mean Corpuscular Hemoglobin 31.0 pg (27.0-31.0); Mean Corpuscular Volume 95.2 fL (78.0-102.0); Platelet Count Result 284 K/mm3 (150-420); Red Blood Count 3.77 M/mm3 (4.70-6.10); White Blood Count 9.7 K/mm3 (4.8-10.8)
[2025-04-24 17:53] LABS: Alanine Aminotransferase 27 U/L (6-50); Albumin Level 4.0 g/dL (3.5-5.1); Alkaline Phosphatase 170 U/L (38-126); Anion Gap 11 mmol/L (4-12); Aspartate Amino Transferase 45 U/L (17-59); Bilirubin,Total 0.7 mg/dL (0.2-1.3); Blood Urea Nitrogen 17 mg/dL (9-20); CRP 3.4 mg/dL (<1.0); Calcium 10.1 mg/dL (8.4-10.2); Carbon Dioxide 27 mmol/L (22-30); Chloride 100 mmol/L (98-107); Estimated Glomerular Filt Rate > 60; Glucose 73 mg/dL (65-110); Osmolality Calculated 286 mOsm/kg (285-295); Potassium 4.7 mmol/L (3.4-5.0); Sodium 138 mmol/L (137-145); Total Protein 7.8 g/dL (6.3-8.2)
== END 2025-04-24 16:44 | disposition home or self-care (01) ==
LOC: CHSLAB 16:45
PROVIDERS: PCP Internal Medicine; Visit Provider Internal Medicine
DX: R19.7 Diarrhea, unspecified (principal)
CPT/HCPCS: 36415; 80053; 85027; 85652; 86140

== ENCOUNTER 2025-04-25 13:06 | Outpatient (CLI) | payer MEDICARE, OTHER, SELFPAY ==
[2025-04-25 13:57] LABS: Toxigenic C. Diff NEGATIVE (NEGATIVE)
== END 2025-04-25 13:07 | disposition home or self-care (01) ==
LOC: CHSLAB 13:07
PROVIDERS: PCP Internal Medicine; Visit Provider Internal Medicine
DX: R19.7 Diarrhea, unspecified (principal)
CPT/HCPCS: 87493

== ENCOUNTER 2025-05-28 15:32 | Outpatient (CLI) | payer MEDICARE, OTHER, SELFPAY ==
--- NOTE | ~2025-05-28 | XR_ITS ---
EXAMINATION: XR chest 2V, 05/28/2025 15:38 GUEST HOUSE MANAGER HISTORY: PNEUMONIA F/U COMPARISON: No comparisons available. Technique: 2 views obtained. Findings: There are chronic changes bilaterally with bilateral superimposed infiltrates most marked in the right upper lobe. No pneumothorax. Heart is normal size. Mediastinal and hilar contours are within normal limits. Bony thorax no acute abnormality. Impression: Probable bilateral pneumonia superimposed on chronic lung disease. The findings appear slightly progressed especially in the right upper lobe compared to the previous study. Follow-up is recommended to assess resolution Reviewed, dictated and finalized at location P. T HOUSE MANAGER Impression: Probable bilateral pneumonia superimposed on chronic lung disease. The findings appear slightly progressed especially in the right upper lobe compared to the previous study. Follow-up is recommended to assess resolution
== END 2025-05-28 15:33 | disposition home or self-care (01) ==
PROVIDERS: PCP Internal Medicine; Visit Provider Internal Medicine
DX: J18.9 Pneumonia, unspecified organism (principal); R91.8 Other nonspecific abnormal finding of lung field
CPT/HCPCS: 71046

== ENCOUNTER 2025-06-05 09:47 | Outpatient (CLI) | payer MEDICARE, OTHER, SELFPAY ==
--- NOTE | ~2025-06-05 | CT_ITS ---
PROCEDURE(S): CT diagnostic chest without contrast INDICATION(S): Pneumonia COMPARISON(S): S plain film of May 28. CT of April 16 TECHNIQUE: Multiplanar images were obtained without the use of IV contrast. FINDINGS: Lungs/pleura: There are emphysematous changes. There is evidence of chronic interstitial disease. There is been left upper lobectomy. Again seen is some consolidated lung/scarring in the right upper lobe. This has decreased from the April study. There is unchanged parenchymal opacity, believed to relate to fibrosi s/scarring, in the superiormost left upper lobe, unchanged. There are areas of chronic pleural thickening. There is some chronic atelectasis in some of the areas of pleural thickening. There is subpleural air cyst formation. 2 right lower lobe pulmonary nodules are stable. There is an area of airspace disease in the posterior right upper lobe, not seen on the prior study and presumably an acute infiltrate. Heart/mediastinum: There is marked coronary arterial calcification. Large airways: Clear/normal. Soft tissues: No significant abnormality is seen. Upper abdomen: There is a small hiatal hernia. The liver is nodular in contour. The appearance is consistent with cirrhosis. The gallbladder surgically absent. There are multiple upper abdominal varices. There is evidence of recanalization of the umbilical vein. There is a small nodule in the left adrenal, low in density and consistent with a benign finding. Mild scoliosis. Multiple mild vertebral body wedging deformities, with an accentuated thoracic kyphosis. Degenerative change. IMPRESSION: 1. Multiple chronic findings as described. 2. Some improvement in the degree of consolidation/fibrosis/scarring in the right apex. 3. Area of acute consolidation/airspace disease in the posterior right upper lobe. 4. Evidence of cirrhosis and sequelae of such. 5. Other findings as described. Reviewed, dictated and finalized at location A. R USE INSPECTOR IMPRESSION: 1. Multiple chronic findings as described. 2. Some improvement in the degree of consolidation/fibrosis/scarring in the rig ht apex. 3. Area of acute consolidation/airspace disease in the posterior right upper lo be. 4. Evidence of cirrhosis and sequelae of such. 5. Other findings as described.
== END 2025-06-05 09:48 | disposition home or self-care (01) ==
LOC: CHSIMG 09:49
PROVIDERS: PCP Internal Medicine; Visit Provider Internal Medicine
DX: J18.9 Pneumonia, unspecified organism (principal); R91.8 Other nonspecific abnormal finding of lung field; K74.60 Unspecified cirrhosis of liver
CPT/HCPCS: 71250

== ENCOUNTER 2025-06-17 13:18 | Outpatient (CLI) | payer MEDICARE, OTHER, SELFPAY ==
--- NOTE | ~2025-06-17 | DEXA_ITS ---
Bone Density Report Name: SUNSHINE OROZCO Age: 85 Sex: Male Ethnicity: White Date of : 1940 Indication: screening for osteoporosis; height loss; cancer; asthma or emphysema; Referring Provider: Paul Carpio Study: Bone densitometry was performed. Exam Date: June 17, 2025 Accession number: [id number] Bone Density: Region BMD T-score Z-score Classification AP Spine(L1-L4) 1.451 3.3 4.6 Normal Femoral Neck (Left) 0.959 0.2 1.9 Normal Total Hip (Left) 1.071 0.3 1.5 Normal Femoral Neck (Right) 1.008 0.6 2.2 Normal Total Hip (Right) 1.164 0.9 2.1 Normal Femoral Neck Mean 0.984 0.4 2.1 Normal Total Hip Mean 1.117 0.6 1.8 Normal World Health Organization criteria for BMD impression classify patients as: Normal (T-score at or above -1.0), Osteopenia (T-score between -1.0 and -2.5), or Osteoporosis (T-score at or below -2.5). 10-year Fracture Risk: FRAX not reported because: All T-scores for Spine Total, Hip Total, Femoral Neck at or above -1.0 Clinical Information Provided by Patient: Has used the following medications: Vitamin D, Calcium Has the following medical conditions: Asthma or Emphysema, Cancer Patient maximum height was 71 No regular weight bearing exercise Drinks caffeinated beverages Impression: The patient has normal bone mass. Discussion: BONE DENSITY IS ABOVE THE MINIMUM DESIRABLE LEVEL AT ALL SKELETAL SITES TESTED. This patient?s bone mineral density is above the minimum desirable level (T-score -1.0 or better) at all sites measured. The patient should follow a healthful lifestyle (good nutrition with adequate calcium and vitamin D, and appropriate weight-bearing exercise). Follow-Up: Consider repeating this study in 5 years or sooner if there is some new clinical indication. Reported by: ELISSA on 06/17/2025 1:50:00 PM. Reviewed, dictated and finalized at location A.
== END 2025-06-17 13:19 | disposition home or self-care (01) ==
PROVIDERS: PCP Internal Medicine; Visit Provider Internal Medicine
DX: M81.0 Age-related osteoporosis without current pathological fracture (principal)
CPT/HCPCS: 77080